=== PATIENT | female | born 1955 | race Caucasian/White ===

== ENCOUNTER → 2019-09-10 14:12 | Outpatient (CLI) | payer MEDICARE, SELFPAY ==
--- NOTE | ~2019-09-10 | XR_ITS ---
EXAMINATION: XR knee RT min 4V DATE: 09/10/2019 14:28 INDICATION: Right knee pain TECHNIQUE: Four views of the right knee were obtained. COMPARISON: 02/14/2019 FINDINGS: Alignment is normal. No fracture or osteochondral lesion. There is mild tricompartmental os teoarthritis characterized by tiny marginal osteophytes. No joint effusion/synovitis. Soft tissues a re unremarkable. IMPRESSION: 1. No acute osseous abnormality. Reviewed, dictated and finalized at location A.
== END ==
PROVIDERS: PCP Family Medicine; Visit Provider Physician Assistant
DX: M25.569 Pain in unspecified knee (principal)
CPT/HCPCS: 73564

== ENCOUNTER → 2020-05-27 12:08 | Outpatient (CLI) | payer MEDICARE, SELFPAY ==
--- NOTE | ~2020-05-27 | XR_ITS ---
EXAMINATION: XR shoulder RT min 2V DATE: 05/27/2020 12:45 INDICATION: Right shoulder pain. TECHNIQUE: 4 views of right shoulder were obtained. COMPARISON: None. FINDINGS: Bone alignment is normal. No fracture. There is mild osteoarthritis of glenohumeral joint a nd acromioclavicular joint. IMPRESSION: 1. Mild polyarticular osteoarthritis. Reviewed, dictated and finalized at location A. URCE DIRECTOR
== END ==
PROVIDERS: PCP Family Medicine; Visit Provider Physician Assistant
DX: M19.011 Primary osteoarthritis, right shoulder (principal)
CPT/HCPCS: 73030

== ENCOUNTER → 2020-06-26 10:58 | Outpatient (CLI) | payer MEDICARE, SELFPAY ==
--- NOTE | ~2020-06-26 | XR_ITS ---
EXAMINATION: XR foot LT min 3V DATE: 06/26/2020 11:16 INDICATION: Left foot pain, initial encounter TECHNIQUE: Dorsoplantar, lateral, and 2 oblique views of the left foot were obtained. COMPARISON: None. FINDINGS: An oblique lucency is present in the medial aspect of the medial cuneiform. No additional a cute osseous abnormality is identified. There is mild polyarticular osteoarthritis of the interphalan geal joints and moderate osteoarthritis at the tarsometatarsal joints. An Achilles enthesophyte is no belkys at the calcaneus. IMPRESSION: 1. Findings consistent with nondisplaced fracture of the medial cuneiform. Reviewed, dictated and finalized at location A. [employer]
== END ==
PROVIDERS: PCP Family Medicine; Visit Provider Family Medicine
DX: M79.672 Pain in left foot (principal)
CPT/HCPCS: 73630

== ENCOUNTER → 2020-07-02 15:20 | Outpatient (CLI) | payer MEDICARE, SELFPAY ==
--- NOTE | ~2020-07-02 | CT_ITS ---
EXAMINATION: CT foot LT wo con DATE: 07/02/2020 15:45 INDICATION: Left medial cuneiform fracture. TECHNIQUE: Computed tomography (CT) of the left foot was performed without intravenous contrast. Auto mated exposure control and iterative reconstruction technique were employed. The dose-length product was 188.26 mGy-cm. COMPARISON: Left foot radiographs 06/26/2020 FINDINGS: Bone alignment is normal. No fracture. There is mild osteoarthritis of first and fifth meta tarsophalangeal joints and some of the midfoot joints and interphalangeal joints. There is severe ost eoarthritis of first-third tarsometatarsal joints. There are enthesophytes at the posterior and plant ar aspects of calcaneal tuberosity. There is mild Achilles tendinopathy. IMPRESSION: 1. No fracture. 2. Polyarticular osteoarthritis. Reviewed, dictated and finalized at location A. DECORATOR
== END ==
PROVIDERS: Visit Provider Podiatrist Foot & Ankle Surgery
DX: S92.245A Nondisplaced fracture of medial cuneiform of left foot, initial encounter for closed fracture (principal); X58.XXXA Exposure to other specified factors, initial encounter; M19.072 Primary osteoarthritis, left ankle and foot
CPT/HCPCS: 73700

== ENCOUNTER → 2020-11-06 08:17 | Outpatient (CLI) | payer MEDICARE, SELFPAY ==
--- NOTE | ~2020-11-06 | CT_ITS ---
EXAMINATION: CT abdomen pelvis w con DATE: 11/06/2020 09:04 INDICATION: Left abdominal pain, left lower quadrant abdominal pain, abnormal bowel movements, excess alexys bowel gas. TECHNIQUE: Computed tomography (CT) of the abdomen and pelvis was performed with 100 cc Omnipaque 350 intravenous contrast. Automated exposure control and iterative reconstruction technique were employe d. Exam dose: 819.15 mGy-cm total exam DLP. COMPARISON: 06/01/2016 abdominal ultrasound examination, reported normal FINDINGS: Middle lobe calcified pulmonary granuloma. Mild discoid atelectasis or scarring in the ling [place] and left lower lobe. No pulmonary consolidation. Normal heart size. No pericardial or pleural effusion. No hepatic, splenic, pancreatic or adrenal space-occupying mass lesion is evident. 8 mm upper pole left renal cyst. Probable smaller mid left renal cysts. No other renal space occupyin g mass lesion is evident. Approximately 2.5 mm nonobstructing right renal calculus. No other urinary tract calculus or hydroure teronephrosis. The urinary bladder is unremarkable. Status post hysterectomy. Normal caliber of the abdominal aorta. No intraperitoneal or retroperitoneal or pelvic mass lesion or adenopathy or ascites. Normal appendix. There is a prominent amount of fecal material throughout the rectum and colon but no bowel obstruction, bowel wall thickening, pneumatosis or intraperitoneal free air is evident. Small fat-containing umbilical hernia. Included skeletal structures are unremarkable; no suspicious osteolytic or osteoblastic lesions. IMPRESSION: Left renal cyst 2.5 mm nonobstructing right renal calculus Reviewed, dictated and finalized at Location A. Reviewed, dictated and finalized at location A.
[2020-11-06 08:50] LABS: Estimated Glomerular Filt Rate > 60
== END ==
DX: R10.84 Generalized abdominal pain (principal); N20.0 Calculus of kidney; N28.1 Cyst of kidney, acquired
CPT/HCPCS: 74177; Q9967

== ENCOUNTER → 2021-01-22 15:00 | Outpatient (CLI) | payer MEDICARE, SELFPAY ==
--- NOTE | ~2021-01-22 | MM_ITS ---
EXAMINATION: MM screening rj BI w pepper HISTORY: Screening mammogram TECHNIQUE: Craniocaudal and mediolateral oblique 3-D tomosynthesis images were obtained and synthetic 2-D images were generated. CAD analysis was submitted and interpreted. COMPARISON: No prior mammogram is available for comparison at this institution. BREAST PARENCHYMAL COMPOSITION: There are scattered areas of fibroglandular density. FINDINGS: There is no evidence of suspicious mass, calcification, or architectural distortion to sugg est malignancy in either breast. There has been no suspicious interval change. IMPRESSION: 1. No mammographic evidence of malignancy. 2. Recommend routine screening mammography in one year. BI-RADS Category 1: Negative Reviewed, dictated and finalized at location A.
== END ==
PROVIDERS: PCP Family Medicine; Visit Provider Physician Assistant
DX: Z12.31 Encounter for screening mammogram for malignant neoplasm of breast (principal)
CPT/HCPCS: 77063; 77067

== ENCOUNTER 2021-02-20 13:02 | Outpatient (CLI) | payer MEDICARE, SELFPAY ==
--- NOTE | ~2021-02-20 | CT_ITS ---
EXAMINATION: CT brain wo con DATE: 02/20/2021 14:07 INDICATION: Headache. TECHNIQUE: Computed tomography (CT) of the head was performed without intravenous contrast. The mA wa s adjusted according to patient size. Iterative reconstruction technique was employed. The dose-lengt h product was 605.33 mGy-cm. COMPARISON: None FINDINGS: There are scattered areas of low attenuation in the cerebral white matter and bilateral bas al ganglia. There is no intracranial hemorrhage, acute infarction, or abnormal intracranial mass lesi on. The ventricles are normal in size. There is mucosal thickening in the paranasal sinuses. There ar e likely changes of ocular lens replacement surgeries. The mastoid air cells are normal. IMPRESSION: 1. Extensive nonspecific cerebral white matter disease and disease of the bilateral basal ganglia, wh ich likely represents chronic small vessel ischemic disease. Reviewed, dictated and finalized at location A. IMPRESSION: 1. Extensive nonspecific cerebral white matter disease and disease of the bilat eral basal ganglia, which likely represents chronic small vessel ischemic disea se.
== END 2021-02-20 13:03 | disposition home or self-care (01) ==
PROVIDERS: PCP Family Medicine; Visit Provider Physician Assistant
DX: R51.9 Headache, unspecified (principal); R93.0 Abnormal findings on diagnostic imaging of skull and head, not elsewhere classified
CPT/HCPCS: 70450

== ENCOUNTER → 2021-07-08 11:06 | Outpatient (CLI) | payer MEDICARE, SELFPAY ==
--- NOTE | ~2021-07-08 | XR_ITS ---
EXAMINATION: XR chest 2V EXAM DATE: 07/08/2021 11:19 INDICATION: R07.81 - Pleurodynia . TECHNIQUE: Frontal and lateral projections of the chest obtained and reviewed. Comparison is made to prior examination from 06/06/2015. FINDINGS: The lungs are hyperinflated which can be seen with chronic obstructive pulmonary disease ( a clinical diagnosis of functional impairment), but is not diagnostic of it. The lungs are clear. Th ere are no pleural effusions. The cardiomediastinal silhouette is within normal limits. There is no pneumothorax suspected. The bones and soft tissues are unremarkable. IMPRESSION: No acute cardiopulmonary findings. Reviewed, dictated and finalized at location A. TELEMETRY
== END ==
PROVIDERS: PCP Family Medicine; Visit Provider Physician Assistant
DX: R07.81 Pleurodynia (principal)
CPT/HCPCS: 71046

== ENCOUNTER 2021-09-13 15:18 | Emergency (ER) | payer MEDICARE, SELFPAY ==
--- NOTE | ~2021-09-13 | CT_ITS ---
EXAMINATION: CT brain wo con DATE: 09/13/2021 16:37 INDICATION: Increasing frequency of migraine headaches. Hypertension. TECHNIQUE: Computed tomography (CT) of the head was performed without intravenous contrast. The mA wa s adjusted according to patient size. Iterative reconstruction technique was employed. Exam dose: 68 1.00 mGy-cm total exam DLP. COMPARISON: 02/20/2021 CT brain FINDINGS: Again noted is prominent nonspecific patchy decreased attenuation of the cerebral white mat ter and basal ganglia, as on 02/20/2021. This likely. No intracranial mass lesion or hemorrhage or recent cerebrovascular accident is detected. Normal vent ricular size. There is no midline shift or mass effect. No subdural or epidural hematoma. There is moderate cerebral and cerebellar volume loss. No fracture or bone destruction of the cranial vault. The mastoid air cells and included paranasal sinuses are normally developed and aerated. IMPRESSION: Prominent chronic nonspecific patchy diminished attenuation of the cerebral white matter and basal ganglia: No acute intracranial abnormality or significant change since 02/20/2021 Reviewed, dictated and finalized at Location A. Reviewed, dictated and finalized at location A.
[2021-09-13 15:24] VITALS: BP 160/128; PULSE 98; RESP 18; TEMP 36.4; O2SAT 100
[2021-09-13 16:15] VITALS: BP 169/104; PULSE 83; RESP 18; O2SAT 98
--- NOTE | 2021-09-13 16:26 | ED.HA ---
HPI - Headache General Chief Complaint: Headache Stated Complaint: hypertension Time Seen by Provider: 09/13/21 15:58 Source: patient and family Mode of arrival: ambulatory Limitations: no limitations History of Present Illness HPI Narrative: Patient is 66 years old white female came to the emergency room because of increase in frequency of her regular migraine headache. Over the last 2 weeks. Patient usually gets better after vomiting but lately vomiting does not improve the headache. Patient denies focal deficit, headache is dull aching, similar to the previous migraine but all over the head. Patient is concerned about the possibility of brain tumor. Patient denies any fever, chills, chest pain, shortness of breath, neck pain, back pain. History of fibromyalgia, hypertension, hyperlipidemia, COPD, IBS, depression and migraine headache. Patient does not smoke or drink, uses marijuana occasionally for migraine headache Related Data Home Medications Medication Instructions Recorded Confirmed ibuprofen 800 mg tablet 800 mg PO TID 12/26/20 07/08/21 Allergies Allergy/AdvReac Type Severity Reaction Status Date / Time Penicillins Allergy Severe Anaphylaxis Verified 07/08/21 10:36 Sulfa (Sulfonamide Allergy Unknown Unknown Verified 07/08/21 10:36 Antibiotics) Review of Systems Review of Systems: CONSTITUTIONAL: Denies fever, chills, or sweats. EYES: Denies visual changes, redness, or discharge. ENT: Denies rhinorrhea, congestion, sore throat, or otalgia. CARDIOVASCULAR: Denies chest pain, palpitations, or edema. RESPIRATORY: Denies cough or dyspnea. GASTROINTESTINAL: Denies abdominal pain, nausea, vomiting, or diarrhea. GENITOURINARY: Denies dysuria or hematuria. SKIN: Denies rash or itching. MUSCULOSKELETAL: Denies back pain, joint pain, or myalgia. NEUROLOGIC: Denies headache, numbness, or weakness. PSYCHIATRIC: Denies anxiety or depression. [facility] Past Medical History Medical History Anxiety Essential hypertension Fibromyalgia Gastric ulcer, unspecified as acute or chronic, without hemorrhage or perforation H/O Helicobacter infection Migraine, unspecified, not intractable, without status migrainosus Mild intermittent asthma without complication Mixed hyperlipidemia Normal colonoscopy (~2019) Vitamin B12 deficiency Vitamin D deficiency Family History Family History Other Diabetes mellitus Family history of coronary artery disease Social History Social History Second hand tobacco smoke exposure: No Alcohol intake: never Substance use: never Substance use type: does not use Gender identity (if verbalized by the patient): Female Exam Narrative: General appearance: Well-developed, well-nourished Skin: Normal color Head: Normocephalic, nontraumatic Eyes: Clear conjunctiva ENT: Oropharynx normal, ears normal, nose normal Neck: Supple, nontender Chest and respiratory: Airway patent, no respiratory distress, no accessory muscle use Heart: Regular rate/rhythm Abdomen: Soft, nontender, no organomegaly, quiet bowel sounds Vascular: Normal peripheral pulses, normal capillary refill. Musculoskeletal: Normal range of motion, nontender back Neurologic: Alert and oriented ?3, PERMACULTURE DESIGNER is normal as tested, no gross motor deficit Course Course Emergency Course: Stable Vital Signs Vital signs: Vital Signs Temperature 36.4 C L 09/13/21 15:24 Pulse Rate 98 09/13/21 15:24 Respiratory Rate 18 09/13/21 15:24 Blood Pressure 160/128 H 09/13/21 15:24 Pulse Oximetry 100
[2021-09-13] MEDS: SODIUM CHLORIDE 0.9% IV 1,000 ML 999 ML IV CONT (16:49)
[2021-09-13] MEDS: KETOROLAC 30 MG/ML VIAL (*BKC) IV PUSH (16:52)
[2021-09-13] MEDS: LORazepam INJ (*CRX) 2 MG/ML VIAL 1 MG IV PUSH (16:52)
[2021-09-13] MEDS: METOCLOPRAMIDE HCL INJ 10 MG/2 ML VIAL IV PUSH (16:54)
[2021-09-13] MEDS: diphenhydrAMINE HCl INJ 50 MG/ML VIAL 25 MG IV PUSH (16:55)
[2021-09-13 17:05] LABS: Basophils Percent Auto 0.3 % (0.2-1.2); Eosinophils Percent Auto 0.2 % (0-4.4); Hematocrit 44.3 % (37.0-47.0); Hemoglobin 14.5 g/dL (12.0-15.0); Immature Granulocyte Absolute 0.01 K/mm3 (0.00-0.031); Immature Granulocyte Percent A 0.2 % (0-0.5); Lymphocytes Absolute Auto 1.66 K/mm3 (0.9-3.2); Lymphocytes Percent Auto 25.5 % (18.3-44.2); Mean Corpuscular HGB Conc 32.7 g/dl (32-36); Mean Corpuscular Hemoglobin 30.1 pg (26-34); Mean Corpuscular Volume 91.9 fl (80-100); Mean Platelet Volume 9.3 fl (7.4-10.4); Monocytes Absolute Auto 0.4 K/mm3 (0.1-0.6); Monocytes Percent Auto 6.7 % (2.6-8.5); Neutrophils Absolute Auto 4.4 K/mm3 (1.3-6.7); Neutrophils Percent Auto 67.1 % (45.5-73.1); Platelet Count Result 284 k/mm3 (150-375); Red Blood Count 4.82 M/mm3 (4.2-5.4); Red Cell Distribution Width 13.4 % (11.5-14.5); White Blood Count 6.5 K/mm3 (4.5-10.0)
[2021-09-13 17:15] VITALS: BP 167/94; PULSE 77; RESP 16; O2SAT 99
[2021-09-13 17:18] LABS: Alanine Aminotransferase 33 U/L (4-35); Albumin Level 4.8 g/dL (3.5-5.1); Alkaline Phosphatase 112 U/L (38-126); Anion Gap 7 mmol/L (8-16); Aspartate Amino Transferase 32 U/L (14-36); Bilirubin,Total 0.4 mg/dL (0.2-1.3); Blood Urea Nitrogen 18 mg/dL (7-17); Calcium 9.3 mg/dL (8.4-10.2); Carbon Dioxide 31 mmol/L (22-30); Chloride 100 mmol/L (98-107); Estimated CRCL calculation 85 ml/min; Estimated Glomerular Filt Rate > 60; Glucose 139 mg/dL (65-110); Potassium 3.6 mmol/L (3.4-5.0); Sodium 138 mmol/L (137-145)
[2021-09-13 17:46] LABS: Erythrocyte Sedimentation Rate 7 mm/hr (0-20)
[2021-09-13 18:07] VITALS: BP 158/91; PULSE 71; RESP 16; O2SAT 99
== END 2021-09-13 18:10 | disposition home or self-care (01) ==
PROVIDERS: Emergency Provider Emergency Medicine; PCP Family Medicine
DX: G43.909 Migraine, unspecified, not intractable, without status migrainosus (principal); F32.A Depression, unspecified; I10 Essential (primary) hypertension; J44.9 Chronic obstructive pulmonary disease, unspecified; E78.2 Mixed hyperlipidemia; K58.9 Irritable bowel syndrome, unspecified; M79.7 Fibromyalgia; F41.9 Anxiety disorder, unspecified; E53.8 Deficiency of other specified B group vitamins; E55.9 Vitamin D deficiency, unspecified
CPT/HCPCS: 36415; 70450; 80053; 85025; 85652; 96361; 96374; 96375; 99284; J1200; J1885; J2060; J2765; J7030

== ENCOUNTER → 2022-06-07 13:07 | Outpatient (CLI) | payer MEDICARE, SELFPAY ==
--- NOTE | ~2022-06-07 | MMUS_ITS ---
EXAMINATION: MM diagnostic rj BI w pepper, US breast LT complete HISTORY: Left breast pain TECHNIQUE: Additional 3-D tomosynthesis images of the breasts were performed and synthetic 2-D images were generated. CAD analysis was submitted and interpreted. High resolution complete left breast ult rasound was performed. COMPARISON: 01/22/2021 BREAST PARENCHYMAL COMPOSITION: Breast composed of scattered areas of fibroglandular density FINDINGS: MAMMOGRAPHIC FINDINGS: The breasts are stable. No new masses, calcifications or architectural distortion are identified in e ither breast to suggest malignancy. ULTRASOUND: Complete bilateral US of all 4 quadrants of the the left and retroareolar region was reviewed. At 5:0 0, 6 cm from the nipple there is an oval circumscribed hypoechoic mass with internal echogenic striat ions and no internal vascularity. There is posterior acoustic enhancement. This mass measures 1.5 x 0 .9 x 0.8 cm. No other masses or cysts are identified. IMPRESSION: 1. Solid left breast mass at 5:00, 6 cm from the nipple measuring 1.5 cm. 2. Ultrasound-guided left breast biopsy recommended. BI-RADS category 4, suspicious findings. Reviewed, dictated and finalized at location B. SPLANT NURSE IMPRESSION: 1. Solid left breast mass at 5:00, 6 cm from the nipple measuring 1.5 cm. 2. Ultrasound-guided left breast biopsy recommended. BI-RADS category 4, suspicious findings.
== END ==
PROVIDERS: PCP Family Medicine
DX: N64.4 Mastodynia (principal); R92.8 Other abnormal and inconclusive findings on diagnostic imaging of breast
CPT/HCPCS: 76641; 77062; 77066; G0279

== ENCOUNTER 2022-12-21 21:44 | Observation (INO) | payer MEDICARE, SELFPAY ==
--- NOTE | ~2022-12-21 | XR_ITS ---
EXAMINATION: XR chest 2V Exam Date/Time: 12/21/2022 22:25 CDT HISTORY: cp Comparison: 07/08/2021. RESULT: Lines, tubes, and devices: None. Lungs and pleura: Clear. Streaky bibasilar scar/atelectasis. 6 mm left lower lobe pulmonary nodule. Cardiomediastinal silhouette: Stable. Other: No acute osseous or upper abdominal finding. IMPRESSION: No acute cardiopulmonary process. 6 mm left lower lobe pulmonary nodule, recommend nonemergent outpat ient low-dose noncontrast CT of the chest for further characterization. Reviewed, dictated and finalized at location K. IMPRESSION: No acute cardiopulmonary process. 6 mm left lower lobe pulmonary nodule, recomm end nonemergent outpatient low-dose noncontrast CT of the chest for further mp racterization.
--- NOTE | ~2022-12-21 | NM_ITS ---
EXAMINATION: NM trell stress w perfusion DATE: 12/22/2022 14:24 INDICATION: Chest pain TECHNIQUE: Rest images were obtained following intravenous administration of 8 mCi Tc99m tetrofosmin (Myoview). The patient was infused intravenously with Lexiscan (Regadenoson). Then, 24 mCi Tc99m tetr ofosmin (Myoview) was administered intravenously, and stress images were obtained. Data was reconstru cted into short axis and horizontal and vertical long axis SPECT images. Gated SPECT images were also obtained. COMPARISON: None. FINDINGS: There is no definite reversible or fixed perfusion abnormality to suggest ischemia or infar ction. There is normal left ventricular chamber size, wall motion and ejection fraction. Left ventr icular ejection fraction measures >70%. IMPRESSION: 1. Normal myocardial perfusion at rest and during stress. 2. Left ventricular ejection fraction measuring >70%. Reviewed, dictated and finalized at location A.
--- NOTE | ~2022-12-21 | CT_ITS ---
CT head without contrast Indication: Headache COMPARISON: 09/13/2021 Technique: Serial scans were obtained through the brain without the administration of contrast. Dose reduction technique was used on this scan by utilizing automated exposure control and iterative recon struction technique. The dose-length product (DLP) was 681.00 mGy-cm. Findings: There is no evidence of intracranial hemorrhage, mass lesion, or acute infarct. The ventri cles and subarachnoid spaces are unremarkable. Low attenuation regions are seen within the periventr icular white matter bilaterally, likely representing changes from chronic microvascular ischemic dise ase. There is no evidence of edema, mass effect or midline shift. The visualized paranasal sinuses and mastoid air cells are clear. Impression: No intracranial hemorrhage, mass, or acute infarct. Mild chronic white matter changes, as above. Reviewed, dictated and finalized at location . Impression: No intracranial hemorrhage, mass, or acute infarct. Mild chronic white matter changes, as above.
--- NOTE | 2022-12-21 21:46 | ECG_ITS ---
Measurements Intervals [place] Rate: 76 P: 45 [place]: 166 QRS: 7 QRSD: 104 T: 30 QT: 396 QTc: 446 Interpretive Statements SINUS RHYTHM POSSIBLE LEFT ATRIAL ENLARGEMENT [-0.1mV P WAVE IN V1/V2] POSSIBLE TYPE 3 BRUGADA PATTERN (NON-DIAGNOSTIC) [COVED/SADDLEBACK ST ELEVATION > 0.1mV IN 2 OF V1-3] ABNORMAL ECG NO PREVIOUS ECG AVAILABLE FOR COMPARISON Electronically Signed On 12-22-2022 11:55:47 CDT by Eleuterio Smyth M.D.
[2022-12-21 21:47] VITALS: BP 182/100; PULSE 82; RESP 15; TEMP 36.4; O2SAT 97
[2022-12-21 22:00] LABS: Basophils Percent Auto 0.5 % (0.2-1.2); Eosinophils Percent Auto 0.3 % (0-4.4); Hematocrit 37.6 % (37.0-47.0); Hemoglobin 12.5 g/dL (12.0-15.0); Immature Granulocyte Absolute 0.01 K/mm3 (0.00-0.031); Immature Granulocyte Percent A 0.2 % (0-0.5); Lymphocytes Absolute Auto 1.97 K/mm3 (0.9-3.2); Lymphocytes Percent Auto 31.1 % (18.3-44.2); Mean Corpuscular HGB Conc 33.2 g/dl (32-36); Mean Corpuscular Volume 90.2 fl (80-100); Mean Platelet Volume 9.3 fl (7.4-10.4); Monocytes Absolute Auto 0.4 K/mm3 (0.1-0.6); Monocytes Percent Auto 6.3 % (2.6-8.5); Neutrophils Absolute Auto 3.9 K/mm3 (1.3-6.7); Neutrophils Percent Auto 61.6 % (45.5-73.1); Platelet Count Result 259 k/mm3 (150-375); Red Blood Count 4.17 M/mm3 (4.2-5.4); Red Cell Distribution Width 13.5 % (11.5-14.5); White Blood Count 6.3 K/mm3 (4.5-10.0)
[2022-12-21 22:09] LABS: Prothrombin Time 13.3 Seconds (11.1-14.7)
[2022-12-21 22:10] LABS: Partial Thromboplastin Time 30.1 SECONDS (22.3-36.8)
[2022-12-21 22:11] LABS: Alanine Aminotransferase 25 U/L (6-35); Albumin Level 4.4 g/dL (3.5-5.1); Alkaline Phosphatase 95 U/L (38-126); Anion Gap 3 mmol/L (8-16); Aspartate Amino Transferase 32 U/L (14-36); Bilirubin,Total 0.3 mg/dL (0.2-1.3); Blood Urea Nitrogen 16 mg/dL (7-17); Calcium 9.3 mg/dL (8.4-10.2); Carbon Dioxide 35 mmol/L (22-30); Chloride 100 mmol/L (98-107); Estimated CRCL calculation 52 ml/min; Estimated Glomerular Filt Rate 55; Glucose 145 mg/dL (65-110); Lipase 82 U/L (23-300); Sodium 138 mmol/L (137-145)
[2022-12-21 22:22] LABS: Troponin I < 0.012 ng/mL (0.000-0.034)
[2022-12-22] VITALS (32 sets, daily range): BP systolic 102–173; BP diastolic 73–91; PULSE 59–84; RESP 12–20; TEMP 36–36.8; O2SAT 95–100; BMI 25.9
--- NOTE | 2022-12-22 01:13 | ED.CHESTPAIN ---
HPI - Chest Pain General Chief Complaint: Chest Pain <Zahraa Jefferson PA-C - Last Filed: 12/22/22 04:35> Stated Complaint: cp <Zahraa Jefferson PA-C - Last Filed: 12/22/22 04:35> Time Seen by Provider: 12/22/22 00:41 <Zahraa Jefferson PA-C - Last Filed: 12/22/22 04:35> History of Present Illness HPI narrative: 67-year-old female with history of fibromyalgia, hypertension, hyperlipidemia reports for evaluation of acute onset left-sided neck pain that radiated up into her head and behind her eye, left scapular pain, left-sided chest pain and upper abdominal pain that started suddenly while she was doing the dishes approximately 7 PM. She reports associated nausea and dizziness as well as paresthesias throughout her entire body from head to toe . She denies difficulty walking or talking, difficulty swallowing, focal weakness or numbness. She does report history of migraines and states she had a similar headache on Tuesday, however did not involve chest pain, abdominal pain or back pain. She reports taking ibuprofen and a muscle relaxer without improvement. She states since she has been to the ED she has had improvement in all of her pain, however it is still present and a dull ache. When asked if she is feeling short of breath that she states a little. She is unable to elaborate if the chest pain has aggravating or alleviating factors. She denies history of cardiac history. Her dad and brother both had multiple MIs prior to the age of 65. She is not a smoker. Denies cough, congestion, fever, urinary complaints. <Zahraa Jefferson PA-C - Last Filed: 12/22/22 04:35> Related Data Home Medications: Home Medications Medication Instructions Recorded Confirmed ibuprofen 800 mg tablet 800 mg PO TID 12/26/20 09/17/21 <BRITTANY Grijalva Last Filed: 12/22/22 04:35> Allergies/Adverse Reactions: Allergies Allergy/AdvReac Type Severity Reaction Status Date / Time Penicillins Allergy Severe Anaphylaxis Verified 12/21/22 21:50 Sulfa (Sulfonamide Allergy Unknown Unknown Verified 12/21/22 21:50 Antibiotics) <BRITTANY Grijalva Last Filed: 12/22/22 04:35> Review of Systems Review of Systems: CONSTITUTIONAL: Denies fever, chills EYES: Denies visual changes, redness, or discharge. ENT: Denies rhinorrhea, congestion, sore throat, or otalgia. CARDIOVASCULAR: See HPI RESPIRATORY: Denies cough or dyspnea. GASTROINTESTINAL: See HPI GENITOURINARY: Denies dysuria or hematuria. SKIN: Denies rash or itching. MUSCULOSKELETAL: See HPI NEUROLOGIC: See HPI PSYCHIATRIC: Denies anxiety or depression. <Zahraa Jefferson PA-C - Last Filed: 12/22/22 04:35> [facility] Past Medical History Medical History: Medical History (Updated 12/22/22 @ 05:40 by Kayli Wood MD) Anxiety Essential hypertension Fibromyalgia Gastric ulcer, unspecified as acute or chronic, without hemorrhage or perforation H/O Helicobacter infection Migraine, unspecified, not intractable, without status migrainosus Mild intermittent asthma without complication Mixed hyperlipidemia Normal colonoscopy (~2019) Vitamin B12 deficiency Vitamin D deficiency <Zahraa Jefferson PA-C - Last Filed: 12/22/22 04:35> Family History Family History: Family History Other Diabetes mellitus Family history of coronary artery disease <Zahraa Jefferson PA-C - Last Filed: 12/22/22 04:35> Social History Social History: Social History Second hand tobacco smoke exposure: No Alcohol intake: never Substance use: never Substance use type: does not use Gender identity (if verbalized by the patient): Female <Zahraa Jefferson PA-C - Last Filed: 12/22/22 04:35> Exam Narrative: GENERAL: Well-appearing, in no acute distress. Patient resting comfortably in exam bed. She is pleasant and
[2022-12-22 01:36] LABS: Troponin I < 0.012 ng/mL (0.000-0.034)
[2022-12-22 01:38] LABS: NT Pro B Type Natriuretic Pept 199 pg/mL (19.9-100)
[2022-12-22 01:43] LABS: Appearance Urine Cloudy (Clear); Bilirubin Urine Negative (Negative); Blood Urine Negative (Negative); Color Urine Yellow (Yellow); Glucose Urine UA Negative (Negative); Ketones Urine Negative (Negative); Leukocyte Esterase Ur 3+ LEU/UL (Negative); Nitrate Urine Negative (Negative); Non Pathogenic Casts 0-2; Protein Urine Negative (Negative); RBC Urine 0-2 /hpf (0-2); Specific Grav Ur 1.012 (1.001-1.035); Squamous Epithelial Cell Urine Occasional /hpf (Few); WBC Urine 51-100 /hpf; pH Urine 6.5 (5.0-9.0)
[2022-12-22 01:45] LABS: Bacteria Urine 2+ /hpf
[2022-12-22 01:46] LABS: Add Urine Microscopic? YES
[2022-12-22] MEDS: ACETAMINOPHEN 500 MG TABLET 1000 MG PO (03:00)
--- NOTE | 2022-12-22 03:31 | PC.NURSE ---
Ultrasound IV placed at this time by .
[2022-12-22] MEDS: PROCHLORPERAZINE EDISYLATE 10 MG/2 ML VIAL IV PUSH (03:33)
[2022-12-22] MEDS: diphenhydrAMINE HCl INJ 50 MG/ML VIAL 25 MG IV PUSH (03:33)
[2022-12-22] MEDS: SODIUM CHLORIDE 0.9% IV 1,000 ML 999 ML IV CONT (03:34)
[2022-12-22 03:47] LABS: Basophils Percent Auto 0.4 % (0.2-1.2); Eosinophils Absolute Auto 0.1 K/mm3 (0-0.3); Eosinophils Percent Auto 0.9 % (0-4.4); Hematocrit 40.6 % (37.0-47.0); Hemoglobin 13.4 g/dL (12.0-15.0); Immature Granulocyte Absolute 0.01 K/mm3 (0.00-0.031); Immature Granulocyte Percent A 0.1 % (0-0.5); Lymphocytes Absolute Auto 2.28 K/mm3 (0.9-3.2); Lymphocytes Percent Auto 34.1 % (18.3-44.2); Mean Corpuscular Hemoglobin 30.1 pg (26-34); Mean Corpuscular Volume 91.2 fl (80-100); Mean Platelet Volume 9.9 fl (7.4-10.4); Monocytes Absolute Auto 0.4 K/mm3 (0.1-0.6); Monocytes Percent Auto 6.3 % (2.6-8.5); Neutrophils Absolute Auto 3.9 K/mm3 (1.3-6.7); Neutrophils Percent Auto 58.2 % (45.5-73.1); Platelet Count Result 286 k/mm3 (150-375); Red Blood Count 4.45 M/mm3 (4.2-5.4); Red Cell Distribution Width 13.6 % (11.5-14.5); White Blood Count 6.7 K/mm3 (4.5-10.0)
[2022-12-22 03:57] LABS: INR 0.9; Prothrombin Time 12.8 Seconds (11.1-14.7)
[2022-12-22 03:58] LABS: Partial Thromboplastin Time 30.8 SECONDS (22.3-36.8)
[2022-12-22] MEDS: HEPARIN SOD/D5W 100 UNITS/ML 25,000 UNITS/250 ML BAG 10 UNITS IV CONT (04:52)
[2022-12-22] MEDS: POTASSIUM CHLORIDE 20 MEQ PACKET (FOR LIQUID) 40 MEQ PO (04:55)
--- NOTE | 2022-12-22 05:44 | ECG_ITS ---
Measurements Intervals [place] Rate: 59 P: 39 [place]: 183 QRS: 11 QRSD: 105 T: 30 QT: 461 QTc: 458 Interpretive Statements SINUS BRADYCARDIA RSR PRIME NONSPECIFIC ST ABNORMALITY ABNORMAL EKG COMPARED TO ECG 12/21/2022 21:53:56 SINUS BRADYCARDIA NOW PRESENT Electronically Signed On 12-22-2022 14:39:01 CDT by Eleuterio Smyth M.D.
--- NOTE | 2022-12-22 06:32 | ADMGEN ---
This patient, Katina Krause, was admitted to IMU Room 205-02 at 0625 on 12/22/2022. Patient/family oriented to hospital policies and general routines including ID bracelet, bed and alarms, visiting hours, pain management, procedures, bathroom and other care routines, personal items, smoking policy, room service/diet, and visiting hours. Information on how to activate the Rapid Response Team has been discussed. Patient/Family are encouraged to report perceived risks to care and to ask questions if they do not understand what they are told or what they should do.
--- NOTE | 2022-12-22 10:48 | P.PCNCVR_ITS ---
Cardioversion Cardioversion Date of procedure: 12/22/22 Procedure: 1. Elective Electricalcardioversion 2. Moderate sedation Pre-op diagnosis: atrial fibrillation Post-op diagnosis: Same Indications: atrial fibrillation Description of procedure: after discussing the risks, benefits and alternatives of the procedure patient agreeable via verbal and written informed consent. Risks discussed included skin irritation burn, shocking into more problematic heart rhythm, , stroke or adverse reaction to anesthesia. After establishing continuous telemetry monitoring, pulse oxygenation and serial blood pressure assessments, time-out was taken and procedure was started. Procedure start time 10:43 a.m. Procedure stop time 10:46 a.m. complications: None Blood loss: None Sedation: a total 2 mg of Versed and 50 mcg of fentanyl were given for moderate sedation Patient was monitored and medications were administered by Judy Cristobal RN Findings: 1. Successful uatsdin of sinus rhythm from atrial fibrillation using 150 joules of biphasic synchronized energy 2. Moderate sedation Conclusion: 1. Successful uatsdin of sinus rhythm using 150 joules of biphasic synchr onized energy 2. Moderate sedation
[2022-12-22 11:11] LABS: Partial Thromboplastin Time 61.8 SECONDS (22.3-36.8)
[2022-12-22 11:14] LABS: Troponin I < 0.012 ng/mL (0.000-0.034)
--- NOTE | 2022-12-22 11:20 | EST_ITS ---
Patient Info Name: Katina Krause Age: 67 years : 1955 Gender: Female Ht: 70 in Wt: 180 lbs BSA: 2.02 m2 HR: 71 bpm BP: 147 / 99 mmHg Heart Rhythm: Sinus Rhythm Exam Date: 12/22/2022 1:23 PM Exam Location: [facility] Stress Patient Status: Outpatient Admit Date: 12/22/2022 Staff Ordering Physician: Eleuterio Smyth MD Attending Provider: Sylvia Bautista DO Exercise Technologist: Rocio Amaro CT Exercise Physician: Eleuterio Smyth MD Exam Type: CA stress trell w NM Study Info Indications R07.89 - Other chest pain A regadenoson stress test was performed. Summary 1. No abnormal ST-T wave changes with lexiscan. 2. Please correlate with nuclear medicine images, reported separately. 3. Supervising physician: Dr. Smyth. Protocol: Lexiscan Stress ECG Details Stage: REST Duration (min): 2 min : 17 sec HR (bpm): 70 SBP (mmHg): 147 DBP (mmHg): 99 Stage: REST Duration (min): 3 min : 45 sec HR (bpm): 73 SBP (mmHg): 147 DBP (mmHg): 99 Stage: STAGE 1 Duration (min): 1 min : 0 sec HR (bpm): 102 SBP (mmHg): 151 DBP (mmHg): 90 Stage: RECOVERY Duration (min): 1 min : 0 sec HR (bpm): 101 SBP (mmHg): 151 DBP (mmHg): 90 Stage: RECOVERY Duration (min): 2 min : 0 sec HR (bpm): 96 SBP (mmHg): 151 DBP (mmHg): 90 Stage: RECOVERY Duration (min): 3 min : 0 sec HR (bpm): 96 SBP (mmHg): 183 DBP (mmHg): 92 Stage: RECOVERY Duration (min): 3 min : 3 sec HR (bpm): 94 SBP (mmHg): 183 DBP (mmHg): 92 Rest HR: 73 bpm Peak HR: 107 bpm Rest Sys BP: 147 mmHg Peak Sys BP: 183 mmHg Max Pred HR: 153 bpm % Max Pred HR: 70 % Target HR: 130 bpm Max RPP: 19,581 bpm*mmHg BP Response: Normal blood pressure response Termination Reason: Completed protocol Cardiac Symptoms: None Total Time: 1 min : 0 sec Rest Maldonado BP: 99 mmHg Peak Maldonado BP: 92 mmHg Total Dose: 0.4 mg Resting ECG Normal sinus rhythm. NST, IRBBB. Stress ECG Non-diagnostic ECG response due to resting abnormalities. Arrhythmias None. Report Signatures
--- NOTE | 2022-12-22 11:28 | PM.CNCAR ---
Assessment and Plan Assessment and plan (1) Chest pain: Code(s): R07.9 - Chest pain, unspecified Status: Acute Assessment and Plan: Chest pain is very atypical. Possibly related to hypertension versus anxiety but cannot completely exclude angina but to this point. She has ruled out for myocardial infarction. There is no acute ST or T-wave abnormalities. Will order Lexiscan myocardial perfusion study. If normal, she can be discharged for follow-up with Dr. Haas. (2) Mixed hyperlipidemia: Code(s): E78.2 - Mixed hyperlipidemia Status: Acute Assessment and Plan: Continue atorvastatin (3) Essential hypertension: Code(s): I10 - Essential (primary) hypertension Status: Acute Assessment and Plan: Continue losartan/hydrochlorothiazide at current dosage (4) Fibromyalgia: Code(s): M79.7 - Fibromyalgia Status: Acute History of Present Illness History of Present Illness Consult date/time: 12/22/22 11:28 Requesting physician: Kayli Wood MD Consult reason: chest pain Reason For Visit: Chest Pain Narrative: Reason for consultation: Chest pain Requesting provider: Dr. Wood Date of service 12/22/2022 History: Patient is a 67-year-old female who does not have known cardiac history. She does have fibromyalgia, hypertension, hyperlipidemia and a family history of CAD. She was cooking dinner last night and shortly after eating, felt some pain in her chest. It radiated up into her head and into her back. She checked her blood pressure blood pressure was elevated at 1 60/100. She took her blood pressure medications and went to lay down. Symptoms persisted and she came to the hospital for further workup evaluation. She stated that by the time they did she was seen in the ER, her symptoms were going away. Total time was about 1-2 hours of discomfort. She did describe some nausea at the time but no associated shortness of breath or diaphoresis. She has ruled out for myocardial infarction. She has no recent exertional chest pain, syncope, presyncope, paroxysmal nocturnal dyspnea, orthopnea, edema palpitations currently feels well and readily admits to being under some stress Review of Systems Review of Systems: All systems reviewed & are unremarkable except as noted in HPI and below Constitutional: Constitutional: Reports body ache(s) Eyes: Eyes: Denies blurry vision ENT: Reports Normal hearing present Cardiovascular: Cardiovascular: Reports chest pain Respiratory: Respiratory: Denies chest congestion and Denies cough Gastrointestinal: Gastrointestinal: Denies abdominal pain Genitourinary: Genitourinary: Denies hematuria Musculoskeletal: Musculoskeletal: Reports myalgias and Reports arthralgias Integumentary/Breasts: Skin/Breast: Denies pruritus Neurologic: Denies Abnormal speech present Psychiatric: Psychiatric: Reports anxiety and Denies behavioral changes Endocrine: Endocrine: Denies excessive sweating Hematologic/Lymphatic: Hematologic/Lymphatic: Denies easy bleeding Allergic/Immunologic: Allergic/Immunologic: Denies GI upset with certain foods PMFSH Past Medical History Medical History Anxiety Essential hypertension Fibromyalgia Gastric ulcer, unspecified as acute or chronic, without hemorrhage or perforation H/O Helicobacter infection Migraine, unspecified, not intractable, without status migrainosus Mild intermittent asthma without complication Mixed hyperlipidemia Normal colonoscopy (~2019) Vitamin B12 deficiency Vitamin D deficiency Family History Family History Father Diabetes mellitus Family history of coronary artery disease Heart attack Sibling Diabetes mellitus Cerebrovascular accident Social History Social History Smoking status: Never smoker
[2022-12-22 11:40] LABS: Anion Gap 1 mmol/L (8-16); Blood Urea Nitrogen 13 mg/dL (7-17); Calcium 9.1 mg/dL (8.4-10.2); Carbon Dioxide 33 mmol/L (22-30); Chloride 103 mmol/L (98-107); Estimated CRCL calculation 73 ml/min; Estimated Glomerular Filt Rate > 60; Glucose 118 mg/dL (65-110); Magnesium 1.7 mg/dL (1.6-2.3); Potassium 3.3 mmol/L (3.4-5.0); Sodium 137 mmol/L (137-145)
[2022-12-22] MEDS: ALPRAZolam (*CRX) 0.5 MG TABLET PO (12:42)
[2022-12-22] MEDS: FLUoxetine HCL 20 MG CAPSULE PO (12:57)
--- NOTE | 2022-12-22 13:57 | PC.NURSE ---
1200- to [place] for Lexiscan
--- NOTE | 2022-12-22 15:13 | PM.DS ---
DS: Summary Time Spent with Patient Time attestation: Total time spent providing and/or coordinating discharge services: DS: Data Data Completed and Pending Labs on day of discharge: Labs from last 24 hours 12/22/22 12/22/22 12/22/22 10:45 03:43 01:33 WBC 6.7 RBC 4.45 Hgb 13.4 Hct 40.6 MCV 91.2 MCH 30.1 MCHC 33.0 RDW 13.6 Plt Count 286 MPV 9.9 Immature Gran % (Auto) 0.1 Neut % (Auto) 58.2 Lymph % (Auto) 34.1 Webb % (Auto) 6.3 Eos % (Auto) 0.9 Baso % (Auto) 0.4 Lymph # (Auto) 2.28 Webb # (Auto) 0.4 Eos # (Auto) 0.1 Baso # (Auto) 0.0 Abs Immat Gran (auto) 0.01 Absolute Neuts (auto) 3.9 Absolute Nucleated RBC 0.0 Nucleated RBC % 0.0 PT 12.8 INR 0.9 APTT 61.8 H 30.8 Sodium 137 Potassium 3.3 L Chloride 103 Carbon Dioxide 33 H Anion Gap 1 L BUN 13 Creatinine 0.70 Estim Creat Clear Calc 73 Estimated GFR > 60 Glucose 118 H Calcium 9.1 Magnesium 1.7 Total Bilirubin AST ALT Alkaline Phosphatase Troponin I < 0.012 NT-Pro-B Natriuret Pep Total Protein Albumin Lipase Urine Color Yellow Urine Appearance Cloudy H Urine pH 6.5 Ur Specific Tavares 1.012 Urine Protein Negative Urine Glucose (UA) Negative Urine Ketones Negative Ur Blood (Man) Negative Urine Nitrate Negative Urine Bilirubin Negative Urine Urobilinogen 1.0 Leukocyte Esterase Rfl 3+ H Urine RBC 0-2 Urine WBC 51-100 H Ur Squamous Epith Cells Occasional Urine Bacteria 2+ Urine Casts 0-2 12/22/22 12/21/22 01:07 21:54 WBC 6.3 RBC 4.17 L Hgb 12.5 Hct 37.6 MCV 90.2 MCH 30.0 MCHC 33.2 RDW 13.5 Plt Count 259 MPV 9.3 Immature Gran % (Auto) 0.2 Neut % (Auto) 61.6 Lymph % (Auto) 31.1 Webb % (Auto) 6.3 Eos % (Auto) 0.3 Baso % (Auto) 0.5 Lymph # (Auto) 1.97 Webb # (Auto) 0.4 Eos # (Auto) 0.0 Baso # (Auto) 0.0 Abs Immat Gran (auto) 0.01 Absolute Neuts (auto) 3.9 Absolute Nucleated RBC 0.0 Nucleated RBC % 0.0 PT 13.3 INR 1.0 APTT 30.1 Sodium 138 Potassium 3.0 L Chloride 100 Carbon Dioxide 35 H Anion Gap 3 L BUN 16 Creatinine 1.00 Estim Creat Clear Calc 52 Estimated GFR 55 L Glucose 145 H Calcium 9.3 Magnesium Total Bilirubin 0.3 AST 32 ALT 25 Alkaline Phosphatase 95 Troponin I < 0.012 < 0.012 NT-Pro-B Natriuret Pep 199 H Total Protein 7.0 Albumin 4.4 Lipase 82 Urine Color Urine Appearance Urine pH Ur Specific Tavares Urine Protein Urine Glucose (UA) Urine Ketones Ur Blood (Man) Urine Nitrate Urine Bilirubin Urine Urobilinogen Leukocyte Esterase Rfl Urine RBC Urine WBC Ur Squamous Epith Cells Urine Bacteria Urine Casts Discharge Plan Discharge Attending physician on discharge: Milagros Douglas Consulting providers: Eleuterio Smyth Discharging Clinician: Milagros Douglas Patient Disposition: Home, Self-Care Activity: as tolerated Diet: heart healthy Discharge Instructions: Patient to follow with her primary care provider as soon as possible, patient is instructed if any symptoms redeveloped to go to nearest emergency department. Patient Instructions: Antibiotic Form Stand Alone Forms: General Discharge Information Follow-up/Referrals: Waldo,Helder López MD [Primary Care Provider] - Discharge Medications: Continued losartan 50 mg tablet 50 mg PO BID atorvastatin 10 mg tablet 10 mg PO HS pantoprazole 40 mg tablet,delayed release (DR/EC) 40 mg PO BID ergocalciferol (vitamin D2) 1,250 mcg (50,000 unit) capsule 1,250 mcg PO WEEKLY fluoxetine 20 mg capsule 20 mg PO DAILY desipramine 10 mg tablet See Rx Instructions PO DAILY PRN (Reason: Abdominal Distention) Rx Instructions: Take 2-3 tab PO daily; hydrochloro
--- NOTE | 2022-12-22 15:30 | PC.NURSE ---
1430- returned to room- post procedure- okay from cardiology to discharge home
--- NOTE | 2022-12-29 18:32 | PM.SD2 ---
Same Day Admit/Disch: HPI History of Present Illness Chief complaint: Chest Pain Narrative: Katina Krause is a 67 year old female ED-HPI narrative: ? ? ? 67-year-old female with history of fibromyalgia, hypertension, hyperlipidemia reports for evaluation of acute onset left-sided neck pain that radiated up into her head and behind her eye, left scapular pain, left-sided chest pain and upper abdominal pain that started suddenly while she was doing the dishes approximately 7 PM.? She reports associated nausea and dizziness as well as paresthesias throughout her entire body from head to toe .? She denies difficulty walking or talking, difficulty swallowing, focal weakness or numbness.? She does report history of migraines and states she had a similar headache on Tuesday, however did not involve chest pain, abdominal pain or back pain.? She reports taking ibuprofen and a muscle relaxer without improvement.? She states since she has been to the ED she has had improvement in all of her pain, however it is still present and a dull ache.? When asked if she is feeling short of breath that she states a little. She is unable to elaborate if the chest pain has aggravating or alleviating factors.? She denies history of cardiac history.? Her dad and brother both had multiple MIs prior to the age of 65.? She is not a smoker.? Denies cough, congestion, fever, urinary complaints PMFSH Past Medical History Medical History Anxiety Essential hypertension Fibromyalgia Gastric ulcer, unspecified as acute or chronic, without hemorrhage or perforation H/O Helicobacter infection Migraine, unspecified, not intractable, without status migrainosus Mild intermittent asthma without complication Mixed hyperlipidemia Normal colonoscopy (~2019) Vitamin B12 deficiency Vitamin D deficiency Family History Family History Father Diabetes mellitus Family history of coronary artery disease Heart attack Sibling Diabetes mellitus Cerebrovascular accident Social History Social History Smoking status: Never smoker Second hand tobacco smoke exposure: No Alcohol intake: never Substance use: never Substance use type: does not use Lack of Transportation: No Lack of Food: Never True Current Housing: I Have Housing Concerned About Future Housing: No Difficulty Paying Gas/Electric Bills: No Difficulty Paying for Meds: No Currently Unemployed: No Education: High School Diploma/GED Difficulty w/ Childcare or Family Care: No Gender identity (if verbalized by the patient): Female Spiritual care concerns: No Same Day Admit/Disch: Med Pre-admit Medications Home Medications Medication Instructions Recorded Confirmed Type alprazolam 0.5 mg tablet 0.5 mg PO BID PRN anxiety #60 tabs 09/14/21 12/22/22 Rx tramadol 50 mg tablet 50 mg PO Q6H PRN pain #60 tabs 10/07/21 12/22/22 Rx atorvastatin 10 mg tablet 10 mg PO HS 12/22/22 12/22/22 History desipramine 10 mg tablet See Rx Instructions PO DAILY PRN 12/22/22 12/22/22 History Abdominal Distention ergocalciferol (vitamin D2) 1,250 1,250 mcg PO WEEKLY 12/22/22 12/22/22 History mcg (50,000 unit) capsule fluoxetine 20 mg capsule 20 mg PO DAILY 12/22/22 12/22/22 History hydrochlorothiazide 12.5 mg tablet 12.5 mg PO HS 12/22/22 12/22/22 History losartan 50 mg tablet 50 mg PO BID 12/22/22 12/22/22 History pantoprazole 40 mg tablet,delayed 40 mg PO BID 12/22/22 12/22/22 History release Exam Narrative: Patient is comfortable, NAD HEENT: eyes are clear and none icteric LUNGS: Normal respiratory effort ABD: BS+, Soft and nontender Lower extremities: no edema SKIN: nonjaundiced Neuro: grossly intact. DS: Summary Hospital Course Reason for hospitalization: ED-HPI narrative: ? ? ? 67-year-old female with histor
== END 2022-12-22 15:55 | disposition home or self-care (01) ==
LOC: ANHED 12-22 05:40 → ANHIMU 12-22 11:42
PROVIDERS: Emergency Medicine; Admitting Provider Internal Medicine; Emergency Provider Physician Assistant; PCP Family Medicine; Visit Provider Family Medicine
DX: R07.9 Chest pain, unspecified (principal); E78.2 Mixed hyperlipidemia; I10 Essential (primary) hypertension; M79.7 Fibromyalgia; M54.2 Cervicalgia; R42 Dizziness and giddiness; R20.2 Paresthesia of skin; G43.909 Migraine, unspecified, not intractable, without status migrainosus; J45.909 Unspecified asthma, uncomplicated; R94.31 Abnormal electrocardiogram [ECG] [EKG]; M25.512 Pain in left shoulder; E53.8 Deficiency of other specified B group vitamins; E55.9 Vitamin D deficiency, unspecified; R91.8 Other nonspecific abnormal finding of lung field; F41.9 Anxiety disorder, unspecified; Z79.01 Long term (current) use of anticoagulants; Z79.891 Long term (current) use of opiate analgesic; Z79.899 Other long term (current) drug therapy; Z82.49 Family history of ischemic heart disease and other diseases of the circulatory system
CPT/HCPCS: 36415; 70450; 71046; 78452; 80048; 80053; 81001; 83690; 83735; 83880; 84484; 85025; 85610; 85730; 87086; 93005; 93017; 96361; 96374; 96375; 99285; A9270; A9502; G0378; J0780; J1200; J1644; J2785; J7030

== ENCOUNTER 2024-05-01 14:20 | Outpatient (CLI) | payer MEDICARE, SELFPAY ==
--- NOTE | ~2024-05-01 | CT_ITS ---
CT brain wo con Ordering provider: Helder Haas, History: 69 years Female with . Unspecified injury of head, initial encounter . Comparison: None. Technique: CT of the head without contrast. Radiation reduction technique utilized.The dose-length product was 599.57 mGy-cm. FINDINGS: BRAIN PARENCHYMA AND CSF SPACES: Mild leukoaraiosis and diffuse cortical atrophy. Mild atheromatous d isease. No midline shift, mass effect or hemorrhage. The brain parenchyma and CSF spaces are otherwi se normal. VISUALIZED PARANASAL SINUSES: Well aerated. MASTOIDS: Well aerated. BONES: The bones appear intact. SOFT TISSUES: Visualized nasopharynx is normal. Superficial soft tissues are normal. IMPRESSION: No acute intracranial findings. Reviewed, dictated and finalized at location [facility]
== END 2024-05-01 14:21 | disposition home or self-care (01) ==
LOC: MICIMG 14:21
PROVIDERS: PCP Family Medicine; Visit Provider Family Medicine
DX: S09.90XA Unspecified injury of head, initial encounter (principal); X58.XXXA Exposure to other specified factors, initial encounter
CPT/HCPCS: 70450

== ENCOUNTER 2025-01-10 11:24 | Outpatient (CLI) | payer MEDICARE, SELFPAY ==
--- NOTE | ~2025-01-10 | MM_ITS ---
EXAMINATION: MM diagnostic rj BI w pepper HISTORY: Breast pain TECHNIQUE: Additional 3-D tomosynthesis images of the breasts were performed and synthetic 2-D images were generated. CAD analysis was submitted and interpreted. COMPARISON: Comparison to multiple prior studies sequentially, with oldest reviewed study dated 02/07. BREAST PARENCHYMAL COMPOSITION: Not dense: There are scattered areas of fibroglandular density. FINDINGS: The breasts are stable. No new masses, calcifications or architectural distortion in either breast to suggest malignancy. IMPRESSION: 1. No mammographic evidence for malignancy in either breast. 2. Routine yearly screening mammogram and regular clinical breast examination are recommended. BI-RADS Category 1: Negative Reviewed, dictated and finalized at location B. IMPRESSION: 1. No mammographic evidence for malignancy in either breast. 2. Routine yearly screening mammogram and regular clinical breast examination a re recommended. BI-RADS Category 1: Negative
--- OUTSIDE RECORDS SUMMARY | 2025-01-10 12:06 | XMS_ITS | Clinical Summary ---
Author Organization [facility] Address [address] [place] [address] Care Team Providers Care Cryptozoologist Name Role Phone Luis Fernando Rosales MD Unavailable Source Comments [facility],non-owned Affiliates and Associated Physician Practices is amultiple site organization consisting of ambulatory clinics and hospital sitesin [place], [place], [place] and [place]. This disclosure is being madepursuant to the Care Everywhere program and may not contain all information available regarding this patient. Last updated 18.[facility] [employer] Personal Care Device Allergies Active Allergy Reactions Criticality Noted Date Comments Penicillins 12/23/2008 Sulfa Drugs 12/23/2008 Medications * Be aware that medications may not be up to date on this document. Alwaysverify current medications with the patient. ibuprofen (MOTRIN) 600 MG tablet Take 1-3 Tabs by mouth daily. Active estradiol (ESTRACE) 0.1 MG/GM vaginal cream Insert 1 g into the vagina at bedtime. 42.5 g 1 07/16/2011 Active Active Problems Problem Noted Date Diagnosed Date S/P total hysterectomy and B SO (bilateral salpingo-oophorectomy) 07/05/2011 Screening for cervical cancer 12/23/2008 Overview (12/23/2008): 01/25/08 WNL Other screening mammogram 12/23/2008 Overview (12/23/2008): 11/30/07 WNL Osteoporosis screening 12/23/2008 Overview (12/23/2008): 2006 Screen for colon cancer 12/23/2008 Overview (12/23/2008): 2007 Family History Medical History Relation Name Comments Cancer Father Diabetes Father Heart Disease Father Hypercholesterolemia Father Hypertension Father Cancer Mother Cancer Paternal Grandfather Diabetes Paternal Grandfather Asthma Paternal Grandmother Cancer Paternal Grandmother Heart Disease Paternal Grandmother Heart Failure Paternal Grandmother Relation Name Status Comments Father Mother Paternal Grandfather Paternal Grandmother Social History Tobacco Use Types Packs/Day Years Used Date Smoking Tobacco: Never Alcohol Use Standard Drinks/Week Comments No 0 (1 standard drink = 0.6 oz pur e alcohol) Comments No Sex and Gender Information Value Date Recorded Sex Assigned at Not on file Legal Sex Female 5:56 AM BUSINESS PROFESSOR Gender Identity Not on file Sexual Orientation Not on file Last Filed Vital Signs Vital Sign Reading Time Taken Comments Blood Pressure 150/97 07/05/2011 3:08 PM BUSINESS PROFESSOR Pulse 69 07/05/2011 3:08 PM BUSINESS PROFESSOR Temperature - - Respiratory Rate - - Oxygen Saturation - - Inhaled Oxygen Concentration - - Weight 78 kg (172 lb) 07/05/2011 3:08 PM BUSINESS PROFESSOR Height 177.8 cm (5' 10) 07/05/2011 3:08 PM BUSINESS PROFESSOR Body Mass Index 24.68 07/05/2011 3:08 PM BUSINESS PROFESSOR Plan of Treatment Health Maintenance Due Date Last Done Comments BONE DENSITY TESTING 1955 COLOGUARD (AGES 45-75) - COL ON CA SCREENING 1955 COLON MONITORING 1955 COLONOSCOPY - COLON CA SCREENING 1955 CT COLONOGRAPHY - COLON CA SCREENING 1955 Colorectal Cancer Screening 1955 FIT - COLON CA SCREENING 1955 FLEX SIG - COLON CA SCREENING 1955 LIPID TESTING 1955 MEDICARE AWV 12 MONTHS 1955 HEPATITIS C SCREENING 02/23/1973 DTAP/TDAP/TD VACCINES (1 - Tdap) 1974 PNEUMOCOCCAL VACCINE 50+ (1 of 1 - PCV) 2005 ZOSTER VACCINE (1 of 2) 2005 MAMMOGRAM 07/05/2013 07/05/2011, 04/09/2010, 04/08/2009 COVID-19 VACCINE ( - 2023-2 5 season) 2024 DEPRESSION SCREENING 06/27/2024 INFLUENZA VACCINE (#1) 2025 Respiratory Syncytial Virus (RSV) Vaccine Pt: or over 60 yrs (1 - 1-dose 75+ series) 2030 HEPATITIS B VACCINE Aged Out No longe r eligible based on patient's age to complete this topic HIB VACCINE Aged Out No longer eligi ble based on patient's age to complete this topic HPV VACCINE Aged Out No longer eligi ble based on patient's age to complete this topic MENINGOCOCCAL (Group B) VACCINE SHARED DECISION-MAKING Aged Out No longer eligible based on patient's age to complete this topic MENINGOCOCCAL GROUPS A/C/Y/W VACCINE Aged Out No longer eligible b ased on patient's age to complete this topic Procedures Procedure Name Priority Date/Time Associated Diagnosis Comments MAMMO BILAT SCREENING Routine 07/05/2011 2:37 PM BUSINESS PROFESSOR Other screening mammogram from Last 3 Months or Most Recently Relevant to Health Maintenance Results * MAMMO SCREENING DIGITAL IMAGE BILAT G0202 (07/05/2011 2:37 PM BUSINESS PROFESSOR) Anatomical Region Laterality Modality Breast Bilateral Mammography 07/05/2011 3:30 PM BUSINESS PROFESSOR Narrative 07/05/2011 3:41 PM BUSINESS PROFESSOR DIGITAL BILATERAL SCREENING MAMMOGRAMS WITH CAD CORRELATION DATE: 07/05/2011. PREVIOUS EXAM DATE: 04/09/2010 and 04/08/2009. PERTINENT HISTORY: Routine screening. TECHNIQUE: Bilateral craniocaudad (CC) and mediolateral oblique (MLO) views. These images were interpreted with the aid of the iCAD Second Look. TECHNOLOGIST: TANIA Singh TISSUE DENSITY: Breast tissue is inhomogeneously dense. This may lower the sensitivity of mammography. Please correlate with clinical examination. FINDINGS: No discrete abnormality. No significant new finding. ASSESSMENT: Negative, BI-RADS 1. RECOMMENDATIONS: Routine followup in one year. The above findings should be correlated with physical examination. A relatively nonspecific study should not preclude additional evaluation if suspicious findings are present clinically. An [employer] Certified Facility Procedure Note Lele Tenorio MD - 07/05/2011 DIGITAL BILATERAL SCREENING MAMMOGRAMS WITH CAD CORRELATION DATE: 07/05/2011. PREVIOUS EXAM DATE: 04/09/2010 and 04/08/2009. PERTINENT HISTORY: Routine screening. TECHNIQUE: Bilateral craniocaudad (CC) and mediolateral oblique (MLO) views. These images were interpreted with the aid of the iCAD Second Look. TECHNOLOGIST: TANIA Singh TISSUE DENSITY: Breast tissue is inhomogeneously dense. This may lower the sensitivity of mammography. Please correlate with clinical examination. FINDINGS: No discrete abnormality. No significant new finding. ASSESSMENT: Negative, BI-RADS 1. RECOMMENDATIONS: Routine followup in one year. The above findings should be correlated with physical examination. A relatively nonspecific study should not preclude additional evaluation if suspicious findings are present clinically. An [employer] Certified Facility Luis Fernando Rosales MD MAMMO ORDERABLES Final Result from Last 3 Months or Most Recently Relevant to Health Maintenance Insurance MEDICARE [facility] * Guarantor: HELIO RONQUILLO Account Type Relation to Patient Date of Phone Billing Address Personal/Family [id number] [id number] MEDICARE [facility] * Guarantor: KATINA RONQUILLO Account Type Relation to Patient Date of Phone Billing Address Personal/Family [id number] [id number] Care Teams Cryptozoologist Relationship Specialty Start Date End Date Luis Fernando Rosales MD [address] [place] [address] PCP - OBGYN 12/23/08
--- OUTSIDE RECORDS SUMMARY | 2025-01-10 12:06 | XMS_ITS | Data Portability ---
Author Organization [place] - [facility], Main Office Address [address] [place] [address] Care Team Providers Care Master [employer] Name Role Phone EDGARDO WHITNEY Primary Care Provider [phone] EDGARDO WHITNEY Referring Provider [phone] Assessment Encounter Date Assessment Date Assessment LastModified by Organization Details LastModified Time 09/20/2022 09/20/2022 Patient presents for foot pain bilaterally right greater than left. Most her pain is in the right foot. She has degenerative changes metatarsal tarsal area both feet and what appears to be a neuroma in the 3rd interspace on the right. She has pain to palpation manipulation she has tried an insert in the past without a whole lot of relief. I recommended an injection for the neuroma this was done with 10 mg Kenalog 2 cc 1% lidocaine. For the degenerative change in her foot in the neuroma for prescription drug management will try Voltaren 75 mg. For pain and inflammation. I will see her back in a month after she has gotten insert and see how much pain she has in exactly with the pain is located. For neuroma if it does not get better I can excise that however for the degenerative changes in the midfoot area back we could consider cheilectomy if that bothers her enough discussed. [email or web address] Not available 09/20/2022 12:32:46 10/23/2024 10/23/2024 The patient has bilateral midfoot pain due to degenerative osteoarthritis. The patient states oral anti-inflammatory medication does help we talked about taking this chronically we will get her a prescription for diclofenac 75 mg b.i.d. with food. We are going to start with a course of a burst and taper of oral steroids she will take that 1st then follow that with the diclofenac. She does have shoe inserts she will wear these these seemed to help somewhat. As far as the hypertrophic spurring is concerned, surgical intervention could help with this particularly if it is causing pain with shoe wear. We talked that this will not fix the arthritis but may give her some relief with the hypertrophic spurring over the dorsum of both feet. The patient does have some degenerative joint disease in the tarsometatarsal joint of the left great toe. She also has some old hypertrophic ossicles possibly due to an old ununited fracture at the base of the right 5th metatarsal. We will try nonsurgical treatment 1st if her pain continues she could consider surgical excision of the hypertrophic spurring particularly over the dorsum of both feet. We will see how she does with time. She voiced understanding and agreed with the above plan if she decides she wants to do anything else with her feet she will see Dr. Pope for consultation for possible surgical intervention. [email or web address] Not available 10/23/2024 11:48:27 Plan of Treatment Reminders Order Date Submit Date Provider Last Modified By Organization Details Last Modified Time Details Appointments None recorded. Lab None recorded. Referral None recorded. Procedures injection/a spiration joint/bursa (PROC) - in office procedure, administere d by provider 2022 023 [email or web address] In-Office Order, Internal Use Only DO Not Attach Compendium DO Not Attach Compendium, Do Not Delete/merge, [id number] 3 12:33:25 Surgeries None recorded. Imaging XR, foot 2024 025 [email or web address] [facility] [place], [address], [place], [address], 5 12:22:51 XR, foot 2022 023 [email or web address] [facility] [place], [address] [facility] [address], [place], [address], 3 12:43:46 Medication Orders prednisone 10 mg tablets in a dose pack 2024 025 [email or web address] [facility] #[id number], [address] [facility], [place], [place], [id number], 5 12:22:51 diclofenac sodium 75 mg tablet,enid yed release 2024 025 [email or web address] [facility] #66236, [address], [place], [id number], 5 12:22:51 Kenalog 10 mg/mL suspension for injection [email or web address] #71486, [address], [place], [place], [id number], 5 11:05:34 ropivacaine (PF) 5 mg/mL (0.5 %) injection solution [address] [facility]19613, [address] [facility], [place], [id number], 5 11:06:17 diclofenac sodium 75 mg tablet,enid yed release [address] [facility]91227, [address] [facility], [place], [place], [id number], 5 11:04:04 Patient TargetsNo targets recorded. Patient InstructionsNo instructions recorded. Reason for Referral None Reported. Results Created Date Observation Date Name Description Value Unit Range Abnormal Flag Note LastModifiedBy Organization Detail LastModifiedTime 01/09/20 21 XR, hip + pelvi s, unila teral No observ ation record ed. [id number] [facility] [place] [address], [place], [address], 08/25/2022 22:24:06 02/13/20 21 MRI hip lt wo [facility] [address], [facility] [place] [address] [phone] Patien t Name: RODRIGO RONQUILLO Access ion #: [id number] Sex: F : 1954 6 Locati on: IND Attend ing Physic dick: Charity locke Physic dick: ATIYA ALEX WORTHINGTON Exam Date: 9:56 AM Exam Name: MRI HIP LT WO Admitt ing Diagno sis(es ): RADIOL OGY REPORT - FINAL EXAM: MRI HIP LT WO HISTOR Y: PAIN left hip pain withou t trauma COMPAR PAYTON: None. TECHNI QUE: Multip lanar multis equenc e noncon trast MR images of the left hip was perfor med. FINDIN GS: Bones: Anatom ic alignm ent. No eviden ce of a fractu re, destru ctive proces s or avascu lar necros is. Cartil age: Preser aliya Labrum : The labrum is not well evalua belkys correl ate for a degene rative tear. Page 1 of 2 [facility] Patien t Name: RODRIGO RONQUILLO Access ion #: [id number] Sex: F : 1954 6 Exam Date: 9:56 AM Exam Name: MRI HIP LT WO Admitt ing Diagno sis(es ): Joint space: There is a modera te joint effusi on on the left. Bursa: Mild left greate r trocha nteric bursit is. Pelvis : Unrema rkable as visual ized Muscle s: Intact bilate rally. IMPRES KIERA: See above. Create d and electr onical ly signed by: Philip river MD Signed Date: 2:31 PM (CT) Dictat ed by: Philip river MD DD: 2:31 PM (CT) DT: 2:31 PM (CT) Page 2 of 2 [id number] [facility] (Imaging) [address] [place], [address], 08/25/2022 22:24:06 02/14/20 21 02/12/2021 MRI, hip, w/o contr ast No observ ation record ed. [id number] [facility] [address], [place], [address], 08/25/2022 22:24:06 09/21/19 23 XR, foot No observ ation record ed. [email or web address] [facility] [place] [address], [place], [address], 09/20/2022 12:33:26 10/24/19 25 XR, foot No observ ation record ed. [email or web address] [facility] [place] [address], [place], [address], 10/23/2024 11:50:40 Result Notes None recorded. Problems Name Problem SNOMED Code Status Onset Date Resolution Date Notes Provider Name and Address Organization Details Recorded Time Foot pain 33177253 Active 2022 SESAR Whitaker, [employer] [facility] mTraks 3 11:20:38 Martinez's neuroma of right foot 6076764272106 08 Active 2022 Alex Heller MD [address], [address], [place], [address], [employer] 3 12:33:39 Osteoarthri tis of ankle and/or foot 08656782 Active 2022 Alex Heller MD [address], [address], [place], [address], [employer] 3 12:33:53 Bilateral foot joint pain 6163619763233 9109 Active 2024 ADONAY Barton, [employer] [facility] [employer]ks 5 10:38:55 Bilateral osteoarthri tis of feet 2950029137087 03 Active 2024 FLAQUITO Perez [address], [address], [place], [address], [place] - [employer] 5 11:48:41 Problem Notes None recorded. Procedures Surgical History Date Name Laterality Status Provider Name and Address Organization Details Recorded Time 09/21/19 23 Ortho - Cortisone Injection completed Alex Heller MD [address] [facility], [facility] [address], [place], [address], [facility] [employer] [facility] 09/20/2022 12:31:36 Hysterectomy completed Blancatoay Reynoso [facility] 09/20/2022 11:17:58 Cancer Surgery completed Blancatoya parham [facility] 09/20/2022 11:18:19 operation on mandible completed Blancatoya Reynoso [facility] 09/20/2022 11:18:56 Imaging Results None recorded. Procedure Notes None recorded. Medical Equipment None Reported. Allergies Allergen ID Allergen Name Allergen Category Reaction Reaction Severity Criticality Documentation Date Start Date Code Code System Note Provider Name and Address Organization Details Recorded Time 70951 Substance with sulfonami de structure and antibacte rial mechanism of action (substanc e) medicatio n hives Not available Not available 08/25/2022 59374 8003 SNOMED Not Available [facility] 3 22:24:02 38716 Product containin g penicilli n (product) medicatio n hives Not available Not available 08/25/2022 19057 8001 SNOMED Not Available [facility] 3 22:24:02 Medications Name Sig Start Date Stop Date Status Note LastModified by Organization Details LastModified Time losartan 50 mg tablet TAKE 1 TABLET BY MOUTH TWICE DAILY active Not Available Not Available No t Available cyclobenzap rine 10 mg tablet Take 1 tablet every day by oral route at bedtime. active Not Available Not Available No t Available doxycycline hyclate 100 mg capsule TAKE 1 CAPSULE BY MOUTH TWICE DAILY FOR 10 DAYS active Not Available Not Available No t Available atorvastati n 10 mg tablet Take 2 tablets every day by oral route at bedtime. active Not Available Not Available No t Available azithromyci n 250 mg tablet TAKE 2 TABLETS BY MOUTH FOR 1 DAY THEN TAKE 1 TABLET BY MOUTH DAILY FOR 4 DAYS active Not Available Not Available No t Available fluconazole 150 mg tablet TK 1 T PO NOW. REPEAT IN 48-72 H IF SYMPTOMS STILL PRESENT active Not Available Not Available No t Available tretinoin 0.025 % topical cream APPLY A PEA SIZED AMOUNT TOPICALLY TO ENTIRE FACE EVERY NIGHT AT BEDTIME AFTER CLEANSING . LAYER WITH MOISTURIZ ER NEEDED active Not Available Not Available No t Available meloxicam 15 mg tablet TAKE 1 TABLET BY MOUTH EVERY DAY 10/23 completed Not Available Not Available Not Available tramadol 50 mg tablet TAKE 1 TABLET BY MOUTH EVERY 6 HOURS NEEDED FOR PAIN 10/23 completed Not Available Not Available Not Available pantoprazol e 20 mg tablet,enid yed release 2 tabs at bedtime active Not Available Not Available No t Available prednisone 10 mg tablets in a dose pack Take 1 tab by mouth, 3 times a day for 3 daysTake 1 tab by mouth 2 times a day for 2 daysTake 1 tab by mouth once a day for 1 day 2024 active Not Available Not Available Not Avai lable alprazolam 0.5 mg tablet Take 0.5 tablets 3 times a day by oral route as needed. active Not Available Not Available No t Available amitriptyli ne 25 mg tablet TK 1 T PO HS active Not Available Not Available No t Available Kenalog 10 mg/mL suspension for injection Take 10 mg by injection route. 10/23 completed [facility]: 0003- 0494- 20 Not Available Not Available Not Available pantoprazol e 40 mg tablet,enid yed release TAKE 1 TABLET BY MOUTH TWICE DAILY 10/23 completed Not Available Not Available Not Available tacrolimus 0.1 % topical ointment APPLY TO THE AFFECTED AREAS OF THE FACE ONCE NIGHTLY UNTIL CLEAR. THEN USE NEEDED FOR FLARES KATINA R. USE IN ROTATION WITH KETOCONAZ OLE. active Not Available Not Available No t Available losartan 25 mg tablet TK 2 TS PO DAILY active Not Available Not Available No t Available diclofenac sodium 75 mg tablet,enid yed release TAKE 1 TABLET BY MOUTH TWICE DAILY 2024 active Not Available Not Available Not Avai lable ergocalcife rol (vitamin D2) 1,250 mcg (50,000 unit) capsule TAKE 1 CAPSULE BY MOUTH 1 TIME A WEEK active Not Available Not Available No t Available clobetasol 0.05 % topical ointment APPLY TOPICALLY TO THE AFFECTED AREA 2 TO 3 TIMES EVERY WEEK active Not Available Not Available No t Available estradiol 0.01% (0.1 mg/gram) vaginal cream USE VAGINALLY 2 TIMES A WEEK AT NIGHT active Not Available Not Available No t Available albuterol sulfate HFA 90 mcg/actuati on aerosol inhaler INHALE 2 PUFFS BY MOUTH EVERY 6 HOURS NEEDED FOR WHEEZING active Not Available Not Available No t Available ketoconazol e 2 % topical cream APPLY TOPICALLY TO AFFECTED AREAS OF FACE EVERY DAY UNTIL CLEAR. THEN USE NEEDED FOR FLARES. USE IN ROTATION WITH TACROLIMU S active Not Available Not Available No t Available fluoxetine 20 mg capsule TAKE 3 CAPSULES BY MOUTH EVERY DAY active Not Available Not Available No t Available desipramine 10 mg tablet Take 2 tablets every day by oral route at bedtime. active Not Available Not Available No t Available bupropion HCl XL 150 mg 24 hr tablet, extended release TAKE 1 TABLET BY MOUTH EVERY MORNING active Not Available Not Available No t Available melatonin 2020 active Not Available Not Available Not Avai lable tramadol 10/23 completed Not Available Not Available Not Available ibuprofen 2020 active Not Available Not Available Not Avai lable lidocaine (PF) 10 mg/mL (1 %) injection solution In office injection administe red by the provider 10/23 completed [facility]: 0409- 4276- 17 Not Available Not Available Not Available hydrochloro thiazide 12.5 mg tablet Take 0.5 tablets every day by oral route. active Not Available Not Available No t Available Suprep Bowel Prep Kit 17.5 gram-3.13 gram-1.6 gram oral solution MIX AND DRINK UTD 10/23 completed Not Available Not Available Not Available ropivacaine (PF) 5 mg/mL (0.5 %) injection solution Take 10 mg by injection route. 10/23 completed Not Available Not Available Not Available Vitals Date Recorded Body height Body mass index (BMI) Body weight Provider Name and Address Organization Details Last Updated DateTime 09/20/2022 177.8 cm 25 kg/m2 70041.07 g SESAR Whitaker [place] [facility] 09/20/2022 11:16:02 Date Recorded Body height Body mass index (BMI) Body weight Provider Name and Address Organization Details Last Updated DateTime 10/23/2024 177.8 cm 26.4 kg/m2 46202 g Torie Lopez CNA [place] [facility] 10/23/2024 10:59:03 Date Recorded Body mass index (BMI) Body height Body weight Provider Name and Address Organization Details Last Updated DateTime 01/08/2021 26.3 kg/m2 177.8 cm 53676.4 g Not Available [facility] 08/25/2022 22:22:34 Date Recorded Body mass index (BMI) Body height Body weight Provider Name and Address Organization Details Last Updated DateTime 02/12/2021 26.1 kg/m2 177.8 cm 96402.81 g Not Available [facility] 08/25/2022 22:22:34 Date Recorded Body mass index (BMI) Body height Body weight Provider Name and Address Organization Details Last Updated DateTime 02/26/2021 26.4 kg/m2 177.8 cm 79516 g Not Available [facility] 08/25/2022 22:22:34 Social History None recorded. Functional Status Question Answer Note LastModified by [employer] ion Details LastModified Time What is your level of alcohol consumption? Occasional Information not available 10/23/2024 Mental Status None recorded. Family History Relationship Description Onset Age of this Age Resolved Age Notes LastModified by Organization Details LastModified Time Father Heart disease [email or web address] Not available 2022 11:17:11 Father Family history of malignant neoplasm Not available 2022 11:17:36 Father Hypertensive disorder [email or web address] Not available 2024 11:08:16 Paternal Grandmother Heart disease [email or web address] Not available 2024 11:07:33 Paternal Grandmother Family history of malignant neoplasm [email or web address] Not available 2024 11:08:01 Brother Family history of stroke Not available 2022 11:17:19 Brother Family history of malignant neoplasm [email or web address] Not available 2022 11:17:36 Brother Hypertensive disorder [email or web address] Not available 2024 11:08:16 Paternal Aunt Heart disease multip le aunts Not available 10/23/2024 11:07:51 Medical History Condition Response ARTHRITIS Y USE OF NSAIDS Y HYPERTENSION Y CANCER: SPECIFY Y Gynecological HistoryNo gynecological history recorded. Obstetrics History GPAL:G 0 P 0 0 0 0 Past Encounters Encounter ID Performer Location Encounter Start Date Encounter Closed Date Diagnosis/Indication Diagnosis SNOMED-CT Code Diagnosis ICD10 Code Diagnosis Note [id number] FLAQUITO Perez [facility] [place] [address] [place] [address] 01/08/2021 00:00:00 01/08/2021 10:29:31 [id number] Alex Heller MD [facility] [place] [address] [place] [address] 02/12/2021 00:00:00 02/12/2021 11:16:19 [id number] Alex Heller MD [facility] [place] [address] [place] [address] 02/26/2021 00:00:00 02/26/2021 10:35:55 [id number] Alex Heller MD [facility] [place] [address] [place] [address] 09/20/2022 10:35:21 09/20/2022 12:43:46 Foot pain 00396841 M79.672 M79.671 Martinez's n euroma of right foot 2769651309 25499 G57.61 Osteoarthr itis of ankle and/or foot 76736703 M19.384 [id number] Manuel Farrell MD [facility] [place] [address] [place] [address] 10/23/2024 10:22:11 10/23/2024 11:45:35 Bilateral foot joint pain 4536123157 0211189 M79.671 M79.672 Bilateral osteoarthritis of feet 0619560210 96337 M19.071 M19.072 Health Concerns Section Related Observation LastModified by Organization Detai ls LastModified Time None Recorded Concern Status LastModified by Organization Details LastModified Time None Recorded Advance Directives Directive None Recorded Payers Insurance Date Sequence Insurance Name Policy Number Policy Joyce Covered Member ID Joyce Member ID Guarantor Name 10/23/2024 2 [place] [id number] Katina Ronquillo [id number] Katina Ronquillo 10/23/2024 2 [place] Cristal Ronquillo [id number] Katina Ronquillo 10/23/2024 1 [employer] (POS) [id number] Cristal Ronquillo [id number] Katina Ronquillo 10/23/2024 1 [employer] [id number] Cristal Tateuca [id number] Katina Ronquillo Notes Date Note Type Note Provider Name and Address Organization Details Recorded Time 09/20/2022 text/html Patient presents foot pain bilaterally right greater than left. She has pain in the foot she has degenerative changes midfoot area spurring but more the pain is in the metatarsal area particularly under the 3rd between the 3rd and 4th toes as in the Martinez neuroma. She does have arthritis but also has some neuroma type symptoms. Alex Heller MD [address] [place] [address], [place], [address], [facility] [employer] 09/20/2022 12:34:39 10/23/2024 text/html The patient retu rns with bilateral foot pain. She has had chronic issues with both feet due to midfoot osteoarthritis and also multiple other sites of mild to moderate osteoarthritis of the midfoot is more severe. She notes bony bossing over the dorsum of both feet in addition to some occasional pain at the base of the 5th metatarsal laterally on the right. Left foot also show some bony bossing over the tarsal metatarsal joint at the base of the 1st metatarsal. The patient reports that shoe wear sometimes bothers her rubs on those bony bumps she also has aching pain when she tries to walk barefoot or without her shoe inserts. She has bilateral orthotics that she has had for couple of years now. These do help she also takes ibuprofen occasionally which gives her some pain relief when she has more significant pain. The patient has pain is worse with activity somewhat relieved by rest. She has to wear shoes all the time with the orthotics to give her a chance to avoid the more significant pain. She has not been evaluated by us for a couple of years now she comes in today for further evaluation and treatment. Previously she was also having pain due to a neuroma in the right foot this has resolved with previous treatment. She denies any new trauma or injury to either foot. No neurovascular deficits. New past medical history sheet was reviewed and signed on the intake sheet of today's date drug allergies current medications family social history previous surgical history 10 point review of systems was reviewed and discussed in detail today with the patient. She states the pain in both feet is about a 5 on a scale of 1-10 today. FLAQUITO Perez [address] [facility] [address], [place], [address], [place] [facility] 10/23/2024 11:52:42 OBGyn Episode No OBEpisode recorded.
--- OUTSIDE RECORDS SUMMARY | 2025-01-10 12:06 | XMS_ITS | Encounter Summary ---
Author Organization [facility] Address [address] [place] [address] Care Team Providers Care Sap Pi Architect Name Role Phone Luis Fernando Rosales MD Unavailable Encounter Details Date Type Department Care Team (Late st Contact Info) Description 05/20/2021 Lab Requisition [facility] Care DermPath Lab [address] [facility] [place] [id number] Gregg Antonio Jr., MD [address] [facility] [address] [place] [address] Social History Tobacco Use Types Packs/Day Years Used Date Smoking Tobacco: Never Alcohol Use Standard Drinks/Week Comments No 0 (1 standard drink = 0.6 oz pur e alcohol) Comments No Sex and Gender Information Value Date Recorded Sex Assigned at Not on file Legal Sex Female 5:56 AM MANAGER CONFIGURATION Gender Identity Not on file Sexual Orientation Not on file documented as of this encounter Plan of Treatment Not on file documented as of this encounter Procedures Procedure Name Priority Date/Time Associated Diagnosis Comments DERMATOPATHOLOGY Routine 05/20/2021 12:0 0 AM MANAGER CONFIGURATION documented in this encounter Results * DERMATOPATHOLOGY (05/20/2021 12:00 AM MANAGER CONFIGURATION) Case Report Dermatopathology Report Case: [id number] Authorizing Provider: Gregg Antonio Jr., MD Collected: 05/20/2021 12:00 AM Ordering Location: [facility] Care DermPath Lab Received: 05/20/2021 12:02 PM Pathologist: Aster Ferguson MD Specimen: Skin, right lower cutaneous lip 12:44 PM [facility] DERMATOPATHOLOGY LABORATORY Final Diagnosis Specimen A. SKIN, right lower cutaneous lip: BASAL CELL CARCINOMA, NODULAR TYPE (C44.319) 12:44 PM [facility] DERMATOPATHOLOGY LABORATORY at 1244 MANAGER CONFIGURATION Clinical History Basal cell carcinoma vs sebaceous hyperplasia vs dermal nevus. . 12:44 PM [facility] DERMATOPATHOLOGY LABORATORY Gross Description Specimen A: Received is one formalin filled container labeled with the patient's name and designated right lower cutaneous lip. The specimen consists of a shave biopsy measuring 2c7x6iw. Jar 0. 12:44 PM [facility] DERMATOPATHOLOGY LABORATORY Microscopic Description Specimen A. SKIN, right lower cutaneous lip: Within the dermis there are aggregates of basaloid cells with a high nuclear to cytoplasmic ratio and peripheral palisading. 12:44 PM [facility] DERMATOPATHOLOGY LABORATORY Disclaimer An external and internal positive and negative controls are appropriate for the histochemical, immunohistochemical and immunofluorescence stain(s) in this case (if any), except where stated explicitly. The performance characteristics of the stain(s) cited in this report were developed and its performance characteristic determined by the Dermatopathology Laboratory at [facility], directed by Dr. Lisa Cruz. These tests need not be, and therefore are not, approved by the [place] Food and Drug Administration. The tests are used for clinical purposes. Billing Codes Specimen Charges Stain Charges 30654 1 12:44 PM [facility] DERMATOPATHOLOGY LABORATORY Embedded Images 12:44 PM [facility] DERMATOPATHOLOGY LABORATORY Pathology/Cytolog y TISSUE SPECIMEN FROM SKIN / Unknown 05/20/2021 05/20/2021 12:02 PM [facility] Gregg Antonio Jr., MD LAB - PATHOLOGY/CYTOLOG Y ORDERABLES Final Result DERMATOPATHOLOGY LABORATORY [facility] - Department of Dermatology [address], [address] [phone] documented in this encounter Visit Diagnoses Not on filedocumented in this encounter Care Teams Sap Pi Architect Relationship Specialty Start Date End Date Luis Fernando Rosales MD [address] [place] [address] PCP Danitza MOTT 12/23/08 documented as of this encounter
--- OUTSIDE RECORDS SUMMARY | 2025-01-10 12:06 | XMS_ITS | Encounter Summary ---
Author Organization [facility] Address [address] [place] [address] Care Team Providers Care Pockets And Pieces Necktie Operator Name Role Phone Luis Fernando Rosales MD Unavailable Encounter Details Date Type Department Care Team (Late st Contact Info) Description 05/24/2023 Lab Requisition [facility] - DermPath Lab [address] [facility] [place] [phone] Gregg Antonio Jr., MD [address] [facility] [address] [place] [address] Social History Tobacco Use Types Packs/Day Years Used Date Smoking Tobacco: Never Alcohol Use Standard Drinks/Week Comments No 0 (1 standard drink = 0.6 oz pur e alcohol) Comments No Sex and Gender Information Value Date Recorded Sex Assigned at Not on file 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 Gender Identity Not on file Sexual Orientation Not on file documented as of this encounter Plan of Treatment Not on file documented as of this encounter Procedures Procedure Name Priority Date/Time Associated Diagnosis Comments DERMATOPATHOLOGY Routine 05/23/2023 12:0 0 AM LINE PRODUCTION COOK documented in this encounter Results * DERMATOPATHOLOGY (05/23/2023 12:00 AM LINE PRODUCTION COOK) Case Report Dermatopathology Report Case: [id number] Authorizing Provider: Gregg Antonio Jr., MD Collected: 05/23/2023 12:00 AM Ordering Location: [facility] DermPath Lab Received: 05/24/2023 01:58 PM Pathologist: Bonnie Jade MD Specimen: Skin, left proximal pretibial region 3:59 PM [facility] DERMATOPATHOLOGY LABORATORY Final Diagnosis Specimen A. SKIN, left proximal pretibial region: BASAL CELL CARCINOMA, SUPERFICIAL MULTIFOCAL (C44.719) 3 3:59 PM [facility] DERMATOPATHOLOGY LABORATORY at 1559 LINE PRODUCTION COOK Clinical History Squamous Cell Carcinoma vs. Basal Cell Carcinoma 3 3:59 PM [facility] DERMATOPATHOLOGY LABORATORY Gross Description Specimen A: Received is one formalin filled container labeled with the patient's name and designated left proximal pretibial region. The specimen consists of a shave biopsy measuring 6x5x1 mm. Jar 0. 3 3:59 PM [facility] DERMATOPATHOLOGY LABORATORY Microscopic Description Specimen A. SKIN, left proximal pretibial region: Attached to the undersurface of the epidermis, there are small aggregates of basaloid cells with a high nuclear to cytoplasmic ratio and peripheral palisading. 3 3:59 PM [facility] DERMATOPATHOLOGY LABORATORY Disclaimer An external and internal positive and negative controls are appropriate for the histochemical, immunohistochemical and immunofluorescence stain(s) in this case (if any), except where stated explicitly. The performance characteristics of the stain(s) cited in this report were developed and its performance characteristic determined by the Dermatopathology Laboratory at [facility], directed by Dr. Lisa Cruz. These tests need not be, and therefore are not, approved by the [place] Food and Drug Administration. The tests are used for clinical purposes. Billing Codes Specimen Charges Stain Charges 68921 1 3 3:59 PM [facility] DERMATOPATHOLOGY LABORATORY Embedded Images 3 3:59 PM [facility] DERMATOPATHOLOGY LABORATORY Pathology/Cytolog y TISSUE SPECIMEN FROM SKIN / Unknown 05/23/2023 05/24/2023 1:58 PM [facility] us Gregg Antonio Jr., MD LAB - PATHOLOGY/CYTOLOG Y ORDERABLES Final Result DERMATOPATHOLOGY LABORATORY [facility] - Department of Dermatology [address] [phone] documented in this encounter Visit Diagnoses Not on filedocumented in this encounter Care Teams Pockets And Pieces Necktie Operator Relationship Specialty Start Date End Date Luis Fernando Rosales MD [address] [place] [address] [address] [place] [address] PCP - TIERA 12/23/08 documented as of this encounter
--- OUTSIDE RECORDS SUMMARY | 2025-01-10 12:06 | XMS_ITS | Encounter Summary ---
Author Organization [facility] Address [address] [place] [address] Care Team Providers Care Licensed Life And Health Agent Name Role Phone Luis Fernando Rosales MD Unavailable Encounter Details Date Type Department Care Team (Late st Contact Info) Description 04/21/2023 Lab Requisition [facility] - DermPath Lab [address] 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 Gender Identity Not on file Sexual Orientation Not on file documented as of this encounter Plan of Treatment Not on file documented as of this encounter Procedures Procedure Name Priority Date/Time Associated Diagnosis Comments DERMATOPATHOLOGY Routine 04/20/2023 12:0 0 AM CDT documented in this encounter Results * DERMATOPATHOLOGY (04/20/2023 12:00 AM CDT) Case Report Dermatopathology Report Case: [id number] Authorizing Provider: Gregg Antonio Jr., MD Collected: 04/20/2023 12:00 AM Ordering Location: [facility] DermPath Lab Received: 04/21/2023 12:59 PM Pathologist: Aster Ferguson MD Specimen: Skin, left proximal pretibial region 12:30 PM CDT DERMATOPATHOLOGY LABORATORY Final Diagnosis Specimen A. SKIN, left proximal pretibial region: BASAL CELL CARCINOMA, SUPERFICIAL MULTIFOCAL (C44.719) 12:30 PM CDT DERMATOPATHOLOGY LABORATORY at 1230 CDT Clinical History Squamous Cell Carcinoma vs. Basal Cell Carcinoma 12:30 PM CDT DERMATOPATHOLOGY LABORATORY Gross Description Specimen A: Received is one formalin filled container labeled with the patient's name and designated left proximal pretibial region. The specimen consists of a shave biopsy measuring 5x4x1 mm. Jar 0. 12:30 PM CDT DERMATOPATHOLOGY LABORATORY Microscopic Description Specimen A. SKIN, left proximal pretibial region: Attached to the undersurface of the epidermis, there are small aggregates of basaloid cells with a high nuclear to cytoplasmic ratio and peripheral palisading. 12:30 PM CDT DERMATOPATHOLOGY LABORATORY Disclaimer An external and internal positive and negative controls are appropriate for the histochemical, immunohistochemical and immunofluorescence stain(s) in this case (if any), except where stated explicitly. The performance characteristics of the stain(s) cited in this report were developed and its performance characteristic determined by the Dermatopathology Laboratory at [facility], directed by Dr. Lisa Cruz. These tests need not be, and therefore are not, approved by the [place] Food and Drug Administration. The tests are used for clinical purposes. Billing Codes Specimen Charges Stain Charges 45478 1 12:30 PM CDT DERMATOPATHOLOGY LABORATORY Embedded Images 12:30 PM CDT DERMATOPATHOLOGY LABORATORY Pathology/Cytolog y TISSUE SPECIMEN FROM SKIN / Unknown 04/20/2023 04/21/2023 12:59 PM CDT us Gregg Antonio Jr., MD LAB - PATHOLOGY/CYTOLOG Y ORDERABLES Final Result DERMATOPATHOLOGY LABORATORY [facility] - Department of Dermatology [address] [phone] documented in this encounter Visit Diagnoses Not on filedocumented in this encounter Care Teams Licensed Life And Health Agent Relationship Specialty Start Date End Date Luis Fernando Rosales MD [address] [place] [address] PCP - OBGYN 12/23/08 documented as of this encounter
--- OUTSIDE RECORDS SUMMARY | 2025-01-10 12:06 | XMS_ITS | Clinical Summary ---
Author Organization [facility] Address [address] [place] [address] Care Team Providers Care Medical Record Specialist Name Role Phone Serena Salazar MD Primary Care Provider [phone] Allergies Active Allergy Reactions Criticality Noted Date Comments Penicillins Hives High 12/23/2008 Sulfa (Sulfonamide Antibiotics) Hives High 07/28 Medications ergocalciferol (VITAMIN D2) 50,000 unit capsule TK 1 C PO Q WK 2 8 Active albuterol HFA 90 mcg inhaler Take 2 Puffs by inhalation every 6 hours as needed for Shortness of Breath. Active clindamycin HCl (CLEOCIN) 300 mg Capsule TK ONE C PO Q 6 H PRN TAT 0 8 Active cyclobenzaprin e (FLEXERIL) 10 mg tablet TK 1 T PO TID PRF PAIN 0 9 Active desipramine (NORPRAMIN) 10 mg Tablet TK 1 T PO HS 0 Active Lactobac 40-Bifido 3-S.thermop (Probiotic) 100 billion cell Capsule daily. Active rimegepant 75 mg Tablet, Rapid Dissolve Take 75 mg by mouth. 2 Active simethicone 125 mg Tablet, Chewable as needed 1 Active diclofenac sodium (VOLTAREN) 75 mg Tablet, Delayed Release (E.C.) 3 Active ALPRAZolam (XANAX) 0.5 mg tablet Take 0.5 mg by mouth. 3 Active FLUoxetine (PROzac) 40 mg capsule Take 40 mg by mouth daily. 3 Active hydroCHLOROthi azide 25 mg tablet Take 25 mg by mouth daily. 3 Active losartan (COZAAR) 50 mg tablet Take 50 mg by mouth 2 times daily. 3 Active pantoprazole (PROTONIX) 20 mg Tablet, Delayed Release (E.C.) Take 20 mg by mouth 2 times daily. 3 Active fluorouraciL (EFUDEX) 5 % Cream Apply 1 Application to affected area 2 times daily. 3 Active Melatonin 1 mg/4 mL Drops Active calcium carbonate + vitamin D (CALTRATE+D) 600 mg-10 mcg (400 unit) Tablet Take 2 Tablets by mouth daily. Active clobetasoL (TEMOVATE) 0.05 % Ointment Use 2-3 times per week. 60 Gram 5 4 Active amLODIPine (NORVASC) 5 mg tablet Take 5 mg by mouth daily. 4 03/14/20 25 Active omeprazole (PriLOSEC) 20 mg Capsule, Delayed Release(E.C.) 5 Active tacrolimus (PROTOPIC) 0.1 % Ointment APPLY TO THE AFFECTED AREAS OF THE FACE ONCE NIGHTLY UNTIL CLEAR. THEN USE NEEDED FOR FLARES THEREAFTER. USE IN ROTATION WITH KETOCONAZOLE. 4 Active atorvastatin (LIPITOR) 20 mg tablet 5 Active estradioL (ESTRACE) 0.01% (0.1 mg/g) vaginal creamIndicatio ns:Vaginal atrophy Use at night twice weekly. 42.5 Gram 5 5 Active estradioL (ESTRACE) 0.01% (0.1 mg/g) vaginal creamIndicatio ns:Vaginal atrophy Use at night twice weekly. 42.5 Gram 5 4 12/18/19 25 Discontin ued(Reord er) Active Problems Patient Care Coordination No te Formatting of this note migh t be different from the original. Primary Care: Serena Salazar MD Referring Provider: Lyly Horton MD [address] [facility] [address] [address] [place] [address] Other: Dr Kim Da Silva MD Problem Noted Date Diagnosed Date Breast fibroadenoma, left 12/15/2022 Lichen sclerosus et atrophicus of the vulva 07/29 Postmenopausal atrophic vaginitis 08/07/2012 Dyspareunia 08/07/2012 S/P total hysterectomy and B SO (bilateral salpingo-oophorectomy) 08/07/2012 Encounters Date Type Department Care Team Description 01/08/2025 External Device Data STL ABSTRACTION Provider, Abstract 12/19/[address] [facility] Clinical Support [id number] [address] Malini Nunez RN fax orders 12/18/2024 External Device Data STL ABSTRACTION Provider, Abstract 12/18/2024 Results Follow-Up [facility] RANGE EXAMINER [address] [address] Rose Prince NP VAGINOSIS/VAGINITIS PANEL BASIC 12/17/2024 11:00 AM CDT Office Visit [facility] [address] [address] Rose Prince NP Chronic vaginitis (Primary Dx); Vaginal atrophy; Pain of both breasts; Situational depression 12/17/2024 Patient Outreach [facility] [place] [id number] [place] [address] Clotilde Reynoso [facility] Care 12/17/[address] [facility] Clinical Support [address] [facility] [place] [id number] Shikha John, DAISY Question 11/29/[address] [facility] Clinical Support [address] [address] Pricila Pringle RN Vaginal Problem 11/13/2024 External Device Data STL ABSTRACTION Provider, Abstract from Last 3 Months Family History Medical History Relation Name Comments Stroke Brother Cancer Father Prostate Cancer Father Breast Cancer Maternal Aunt Cancer Maternal Aunt Ovarian Cancer Maternal Aunt Brain Cancer Mother Cancer Mother Breast Cancer Paternal Aunt x2 Cancer Paternal Aunt Colon Cancer Paternal Aunt Relation Name Status Comments Brother Daughter Alive Father Maternal Aunt Maternal Grandfather Maternal Grandmother Mother Paternal Aunt Paternal Grandfather Paternal Grandmother Son Alive Social History Tobacco Use Types Packs/Day Years Used Date Smoking Tobacco: Never Smokeless Tobacco: Never Tobacco Cessation:Counseling Given: Not Answered Alcohol Use Standard Drinks/Week Comments Yes 0 (1 standard drink = 0.6 oz pur e alcohol) occ Comments No Sex and Gender Information Value Date Recorded Sex Assigned at Not on file Legal Sex Female 10:54 AM TRANSLATOR Gender Identity Not on file Sexual Orientation Not on file Occupation Industry Job Start Date Job End Date Not on file Not on file Not on file Not on file Last Filed Vital Signs Vital Sign Reading Time Taken Comments Blood Pressure 134/86 12/17/2024 10:44 AM CDT Pulse 83 12/17/2024 10:44 AM CDT Temperature 36.3 C (97.4 F) 12/17/2024 10:44 AM CDT Respiratory Rate - - Oxygen Saturation 96% 12/17/2024 10:44 AM CDT Inhaled Oxygen Concentration - - Weight 86.2 kg (190 lb) 12/17/2024 10:44 AM CDT Height 177.8 cm (5' 10) 12/17/2024 10:44 AM CDT Body Mass Index 27.26 12/17/2024 10:44 AM CDT Plan of Treatment Upcoming Encounters Date Type Department Care Team (Late st Contact Info) Description 02/22/2025 10:45 AM CDT Office Visit [facility] RANGE EXAMINER - [facility] [place] [address] [address] Lyly Horton MD [address] [facility] [address] [place] [address] 06/28/2025 9:40 AM TRANSLATOR Appointment [facility] [address] [place] [address] [place] [address] [address] [place] [address] 06/28/2025 10:00 AM TRANSLATOR Office Visit [facility] - [address] [place] [address] [place] [address] [address] [place] [address] Health Maintenance Due Date Last Done Comments Pre-Diabetes and Diabetes Screening 1955 DTAP/TDAP/TD VACCINES (1 - Tdap) 1974 FIT-DNA Q 3 years 02/29/2000 FIT/FOBT Q 1 year 02/29/2000 Flex Sig/CT Colonography Q 5 years 02/29/2000 ZOSTER VACCINE (1 of 2) 2005 INFLUENZA VACCINE (#1) 2025 4, 04/04/2023, 09/22/2021 BREAST CANCER SCREENING 06/28/2025 06/28/19 25, 06/23/2023, 06/07/2022, Additional history exists OSTEOPOROSIS SCREENING 10/17/2028 4, 10/18/2023, 08/27/2021 COLORECTAL SCREENING 08/24/2029 08/24/2019, 07/07/2016, 07/07/2016, Additional history exists Colorectal Cancer Screening 08/24/2029 RSV VACCINE (60+ or ) (1 - 1-dose 75+ series) 2030 PNEUMOCOCCAL VACCINE 50+ YEARS Completed 04/04/2023 Procedures Procedure Name Priority Date/Time Associated Diagnosis Comments VAGINOSIS/VAGINITI S PANEL BASIC Routine 12/17/2024 3:12 PM CDT Chronic vaginitis MAMMO 3D DINA SCREEN BILAT W OR WO CAD Routine 06/28/2024 9:47 AM TRANSLATOR Breast pain, left Breast fibroadenoma, left Screening mammogram for breast cancer Dense breast tissue on mammogram, unspecified type XR DEXA BONE DENSITY AXIAL 1 OR MORE SITES Routine 08/27/2021 12:38 PM TRANSLATOR Post-menopausal Screening for osteoporosis from Last 3 Months or Most Recently Relevant to Health Maintenance Results * VAGINOSIS/VAGINITIS PANEL BASIC (12/17/2024 3:12 PM CDT) BACTERIAL VAGINOSIS NEGATIVE NEGATIVE [facility] [place] LACEY SPECIES NOT DETECTED NOT DETECTED [facility] [place] LACEY GLABRATA NOT DETECTED NOT DETECTED [facility] [place] Comment: Lacey species C. albicans, C. tropicalis, C. parapsilosis, and/or C. dubliniensis can be detected, but not differentiated, in the Lacey spp. result. TRICHOMONAS VAGINALIS (TV), TMA NOT DETECTED NOT DETECTED [facility] [place] Comment: Test Performed at: [email or web address] [address] [place] [address] Zuleyma Cavanaugh MD Genital SPECIMEN FROM VAGINA / Unknown 12/17/2024 3:12 PM CDT 12/18/2024 3:44 AM CDT us Rose Prince NP MICROBIOLOGY - GENERAL ORDERABL ES Final Result [facility] [phone] [facility] [address] [place] [address] * MAMMO 3D DINA SCREEN BILAT W OR WO CAD (06/28/2024 9:47 AM TRANSLATOR) Anatomical Region Laterality Modality Breast Bilateral Mammography 06/28/2024 9:47 AM TRANSLATOR Impressions 06/28/2024 6:46 PM TRANSLATOR IMPRESSION: No mammographic evidence of malignancy. RECOMMENDATIONS: Routine screening mammogram in one year. DICTATION LOCATION: [facility] Narrative 06/28/2024 6:46 PM TRANSLATOR MAMMO 3D DINA SCREEN BILAT W OR WO CAD DATE: 06/28/2024 9:47 AM HISTORY: Routine screening. TECHNIQUE: Full-field digital craniocaudal and mediolateral oblique projections of both breasts were obtained. Low-dose full-field digital breast tomosynthesis examination was performed with 3D acquisitions. Examination is read in conjunction with computer aided detection. COMPARISON: Prior mammograms dating back to 02/07/2018. BREAST COMPOSITION: There are scattered areas of fibroglandular density. FINDINGS: No suspicious mass, suspicious microcalcifications, or architectural distortion in either breast is identified. Since the prior study, there has been no significant interval change. The computer aided diagnosis detects no significant abnormality. OVERALL FINAL ASSESSMENT: BI-RADS CATEGORY 1 : Negative. Procedure Note Sofy Patterson MD - 06/28/2024 MAMMO 3D DINA SCREEN BILAT W OR WO CAD DATE: 06/28/2024 9:47 AM HISTORY: Routine screening. TECHNIQUE: Full-field digital craniocaudal and mediolateral oblique projections of both breasts were obtained. Low-dose full-field digital breast tomosynthesis examination was performed with 3D acquisitions. Examination is read in conjunction with computer aided detection. COMPARISON: Prior mammograms dating back to 02/07/2018. BREAST COMPOSITION: There are scattered areas of fibroglandular density. FINDINGS: No suspicious mass, suspicious microcalcifications, or architectural distortion in either breast is identified. Since the prior study, there has been no significant interval change. The computer aided diagnosis detects no significant abnormality. OVERALL FINAL ASSESSMENT: BI-RADS CATEGORY 1 : Negative. IMPRESSION: No mammographic evidence of malignancy. RECOMMENDATIONS: Routine screening mammogram in one year. DICTATION LOCATION: [facility] Ghazal [place] MAMMO ORDERABLES Final Result * XR DEXA BONE DENSITY AXIAL 1 OR MORE SITES (08/27/2021 12:38 PM TRANSLATOR) Anatomical Region Laterality Modality Digital Radiogra phy 08/27/2021 12:3 9 PM TRANSLATOR Impressions 08/27/2021 12:57 PM TRANSLATOR IMPRESSION: This is a summary page. Please refer to the complete detailed report found in the Imaging Section of the [facility] EMR, including absolute bone mineral density values. Osteopenic BMD. Comments: None. Statistical change: No prior exam is available. FRAX FRACTURE RISK ASSESSMENT: Risk factors: Personal history of fracture. 10 Year Probability Of Fracture Major Osteoporotic:14.6 % Hip:1.5 % Comparison population: [place], Race: A major osteoporotic fracture is defined as a fracture of the spine, forearm, hip or shoulder. Definitions: Normal: T-score above -1.0 Osteopenia T-score less than -1.0 and above -2.5 Osteoporosis: T-score <= -2.5 Follow-up Recommendations: Patients without high risk factors for osteoporosis T-score -1.0 to -1.5 - Consider repeat BMD in 5-10 years T-score -1.5 to - 2.0 - Consider repeat BMD in 3-5 years T-score -2.0 to - 2.5 - Consider repeat BMD every 2 years Patients on treatment for osteoporosis 1-2 years after initiation of treatment and every 2 years thereafter DICTATION LOCATION: Location 1 - [facility] 08/27/2021 12:57 PM TRANSLATOR EXAMINATION: BONE DENSITY STUDY (DXA) DATE: 08/27/2021 12:38 PM HISTORY: See Diagnosis Post-menopausal; Screening for osteoporosis PROCEDURE: Planar images of the lumbar spine and hip(s) using a [employer] DEXA scanner for bone mineral density determination (BMD). FINDINGS: Lumbar Spine (L1-L4): T-Score: -1.7 Left Femoral Neck: T-Score: -1.3 Right Femoral Neck: T-Score: -1.2 Procedure Note Vance Wasserman MD - 08/27/2021 EXAMINATION: BONE DENSITY STUDY (DXA) DATE: 08/27/2021 12:38 PM HISTORY: See Diagnosis Post-menopausal; Screening for osteoporosis PROCEDURE: Planar images of the lumbar spine and hip(s) using a [employer] DEXA scanner for bone mineral density determination (BMD). FINDINGS: Lumbar Spine (L1-L4): T-Score: -1.7 Left Femoral Neck: T-Score: -1.3 Right Femoral Neck: T-Score: -1.2 IMPRESSION: This is a summary page. Please refer to the complete detailed report found in the Imaging Section of the [facility] EMR, including absolute bone mineral density values. Osteopenic BMD. Comments: None. Statistical change: No prior exam is available. FRAX FRACTURE RISK ASSESSMENT: Risk factors: Personal history of fracture. 10 Year Probability Of Fracture Major Osteoporotic:14.6 % Hip:1.5 % Comparison population: [place], Race: A major osteoporotic fracture is defined as a fracture of the spine, forearm, hip or shoulder. Definitions: Normal: T-score above -1.0 Osteopenia T-score less than -1.0 and above -2.5 Osteoporosis: T-score <= -2.5 Follow-up Recommendations: Patients without high risk factors for osteoporosis T-score -1.0 to -1.5 - Consider repeat BMD in 5-10 years T-score -1.5 to - 2.0 - Consider repeat BMD in 3-5 years T-score -2.0 to - 2.5 - Consider repeat BMD every 2 years Patients on treatment for osteoporosis 1-2 years after initiation of treatment and every 2 years thereafter DICTATION LOCATION: Location 1 - [facility] Lyly Horton MD DIAGNOSTIC IMAGING [place] [place] Final Result from Last 3 Months or Most Recently Relevant to Health Maintenance Insurance [facility] Care Teams Medical Record Specialist Relationship Specialty Start Date End Date Serena Salazar MD [address] [place] [address] PCP - General Family Practice 08/07/12
--- OUTSIDE RECORDS SUMMARY | 2025-01-10 12:07 | XMS_ITS | Referral Summary ---
Author Organization [facility] Address [address] [place] [address] Care Team Providers Care Compliance Analyst Name Role Phone Helder Haas MD Primary Care Provider Rina Schmitz MD Unavailable [phone] Artemio Prince MD Unavailable [phone] Lyly Horton MD Unavailable Olu Braga NP Unavailable [phone] Encounters Date Type Department Care Team Description 12/03/2024 Telephone [facility] Accountable Care Organization [address] [place] [id number] Aline Dooley MA Successful Phone Call (Med adherence) 11/27/2024 Telephone [facility] Medical Group Primary Care at [address] [phone] Batool Fairchild MA Unsuccessful Phone Call 1 ([employer] med adh) 11/23/2024 Telephone [facility] Medical [facility] Primary Care at [address] [phone] Helder Haas MD Medication Request 10/28/2024 Results Follow-Up [facility] Medical [facility] Primary Care at [address] [phone] Helder Haas MD Comprehensive metabolic panel, Lipid panel, Thyroid Function [place], Additional followed-up results: 2 10/26/2024 Telephone [facility] Primary Care at [address] [phone] Helder Haas MD Test Results 10/26/2024 Telephone [facility] Primary Care at [address] [phone] Helder Haas MD Medical Question/Miscellaneou s 10/25/2024 11:37 AM CDT - 10/25/2024 11:59 PM CD[place] [address] Encounter for Medicare annual wellness exam Discharge Disposition: Discharge to home or self care 10/25/2024 11:45 AM CDT Lab [facility] Outpatient Lab at [address] [phone] Hypertension, essential (Primary Dx) 10/25/2024 Telephone [facility] Primary Care at [address] [phone] Wendy Rivas MA 10/24/2024 12:17 PM CDT - 10/24/2024 11:59 PM [place] [address] Hypertension, essential; Gastroesophageal reflux disease without esophagitis; Other irritable bowel syndrome; Hypercholesterolemia; Vitamin D deficiency Discharge Disposition: Discharge to home or self care 10/24/2024 12:30 PM CDT Lab [facility] Medical Group Outpatient Lab at [address] [phone] Hypertension, essential (Primary Dx) 10/24/2024 11:30 AM CDT Office Visit [facility] Primary Care at [address] [phone] Helder Haas MD Hypertension, essential (Primary Dx); Mixed hyperlipidemia; Gastroesophageal reflux disease with esophagitis, unspecified whether hemorrhage; Vitamin D deficiency; Need for hepatitis B screening test from Last 3 Months Allergies Active Allergy Reactions Criticality Noted Date Comments Penicillin Hives Medium 09/14/2017 Penicillins Hives High 12/23/2008 Sulfa (Sulfonamide Antibiotics) Hives High 07/28 Medications estradiol (ESTRACE) 1 mg tablet TK 1 T PO D 3 018 Active flaxseed oil 1,000 mg capsule Act alexys fish,bora,flax oils-om3,6,9no1 1,200 mg capsule Act alexys acetaminophen (TYLENOL) 325 mg tablet Active ascorbic acid (VITAMIN C) 500 mg tablet,chewable Acti ve melatonin 1 mg/4 mL drops Active clobetasoL (TEMOVATE) 0.05 % ointment Apply thin layer to affected area twice daily for 1 month then once daily x2 months then twice weekly x3 months. Active Lactobac 40-Bifido 3-S.thermop (Probiotic) 100 billion cell capsule daily Active albuterol HFA (PROVENTIL HFA,VENTOLIN HFA,PROAIR HFA) 90 mcg/actuation inhaler INHALE 2 PUFFS BY MOUTH EVERY 6 HOURS NEEDED FOR WHEEZING 18 g 1 022 Active FLUoxetine (PROzac) 40 mg capsule Take 1 capsule (40 mg total) by mouth daily 90 capsule 3 024 Active calcium carbonate-vitamin D3 (CALTRATE 600 + D) 1500 mg (600 mg elemental) -400 units per tablet Take 2 tablets by mouth daily 600mg daily of calcium 180 tablet 3 024 2024 Active ketoconazole (NIZORAL) 2 % cream APPLY TOPICALLY TO AFFECTED AREAS OF FACE EVERY DAY UNTIL CLEAR. THEN USE NEEDED FOR FLARES. USE IN ROTATION WITH TACROLIMUS Active tacrolimus (PROTOPIC) 0.1 % ointment APPLY TO THE AFFECTED AREAS OF THE FACE ONCE NIGHTLY UNTIL CLEAR. THEN USE NEEDED FOR FLARES THEREAFTER. USE IN ROTATION WITH KETOCONAZOLE. 024 Active cyclobenzaprine (FLEXERIL) 10 mg tablet Take 1 tablet (10 mg total) by mouth nightly for muscle spasms 025 Active rimegepant (NURTEC ODT) tablet,disintegra tingIndications:M igraine Take 1 tablet (75 mg total) by mouth daily as needed (migraine) 8 tablet Active omeprazole (PriLOSEC) 20 mg capsule Take 2 capsules (40 mg total) by mouth daily 60 capsule 11 025 2025 Active ergocalciferol (VITAMIN D) 50,000 unit capsule TAKE 1 CAPSULE BY MOUTH 1 TIME A WEEK 12 capsule 1 Active losartan (COZAAR) 50 mg tablet TAKE 1 TABLET(50 MG) BY MOUTH TWICE DAILY 100 tablet [address] (VOLTAREN) 75 mg EC tablet Take 1 tablet (75 mg total) by mouth 2 (two) times a day Active predniSONE (DELTASONE) 10 mg tablet Active tretinoin (RETIN-A) 0.025 % cream APPLY A PEA SIZED AMOUNT TOPICALLY TO ENTIRE FACE EVERY NIGHT AT BEDTIME AFTER CLEANSING. LAYER WITH MOISTURIZER NEEDED Active desipramine (NOPRAMIN) 10 mg tabletIndications :Other irritable bowel syndrome Take 2 tablets (20 mg total) by mouth nightly 200 tablet 1 025 Active atorvastatin (LIPITOR) 20 mg tabletIndications :Mixed hyperlipidemia Take 1 tablet (20 mg total) by mouth daily Take 1 tablet by mouth at bedtime 90 tablet 3 025 Active hydroCHLOROthiazi de (HYDRODIURIL) 25 mg tablet TAKE 1 TABLET(25 MG) BY MOUTH DAILY 90 tablet 1 025 Active amLODIPine (NORVASC) 5 mg tabletIndications :Hypertension, essential TAKE 1 TABLET(5 MG) BY MOUTH DAILY 90 tablet 3 025 Active ALPRAZolam (XANAX) 0.5 mg tablet TAKE 1 TABLET(0.5 MG) BY MOUTH TWICE DAILY NEEDED FOR ANXIETY 30 tablet 025 Active ALPRAZolam (XANAX) 0.5 mg tablet TAKE 1 TABLET(0.5 MG) BY MOUTH TWICE DAILY NEEDED FOR ANXIETY 30 tablet 025 2024 Discontinued Active Problems Problem Noted Date Diagnosed Date Acute non-recurrent frontal sinusitis 03/05/2024 Assessment & Plan (03/05/2024 12:34 PM CDT): 1. Can continue dayquil/nyquil 2. doxycyline 3. Nasal saline rinses as needed for congestion. 4. Follow-up in 5-7 days - if symptoms worsen or persist Family history of colon cancer 10/28/2023 Mood disorder 10/04/2023 Chronic, continuous use of opioids 04/11/2023 Breast fibroadenoma, left 12/15/2022 Martinez's neuroma of right foot 09/30/2022 Other irritable bowel syndrome 09/06/2022 Assessment & Plan (09/06/2022 10:10 PM CDT): Aim for fiber intake 20-25 grams per day Peppermint oil supplement may be helpful as well Increasing desipramine to 20 mg qhs again Chronic migraine without aur a without status migrainosus, not intractable 03/27/2022 [facility] Umbilical hernia without obstruction and without gangrene 10/30/2021 Hypercholesterolemia 09/23/2021 Assessment & Plan (10/23/2021 12:43 PM CDT): Continuing statin therapy Hypertension, essential 09/23/2021 Assessment & Plan (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 Hydrochlorothiazide cut down to 12.5 mg daily Losartan cut down to 25 mg daily Monitor BP Follow up in 6 weeks Assessment & Plan (12/30/2022 3:09 PM CDT): BP's are running 140's systolic. Patient does have increased anxiety. She notes that her potassium was noted to be low in the hospital and I see that on the cardiology consult note but need the whole report to see what d/c potassium was. Records requested. Will check a BMP today and increase the HCTZ to 25 mg. May need K supplement on board. Home BP log and bring to follow up. Hypotension education provided. Assessment & Plan (10/23/2021 12:43 PM CDT): Start HCTZ at bedtime, continue losartan as currently dosed Awaiting labs Assessment & Plan (09/23/2021 9:27 PM CDT): Monitoring BP at home; I'll want to see numbers over the week Check 1-2 times a day; call if higher than 150/90 (even if this afternoon). At the most, you may recheck in 15-20 minutes after a high reading to confirm. If symptoms (headache, chest pain, shortness of breath) may need to go back to ER. Continue heart-healthy diet Will consider adding amlodipine; will continue losartan, hydrochlorothiazide. Continue Lipitor I will order a new lipid panel today Will try to get lab results from [facility] Lichen sclerosus et atrophicus of the vulva 07/29 Basal cell carcinoma of skin of right eyelid, including canthus 01/27/2018 Overview (01/27/2018): Added automatically from request for surgery [id number] Basal cell carcinoma (BCC) of skin of nose 05/27 Dyspareunia 08/07/2012 Postmenopausal atrophic vaginitis 08/07/2012 S/P total hysterectomy and B SO (bilateral salpingo-oophorectomy) 07/05/2011 Osteoporosis screening 12/23/2008 Overview (02/27/2021): Overview: 2006 Encounter for Medicare annual wellness exam 11/26 Overview (02/27/2021): Overview: 2006 Assessment & Plan (04/26/2024 10:59 AM CDT): A(n) yearly Medicare Annual Wellness Visit has been performed today. Katina Krause is not up to date on screening tests. She is in need of Cholesterol screening and Hepatitis B. She is not up to date on needed preventative vaccinations; She is in need of Influenza and Zoster. We discussed healthy lifestyle habits, educational material has been given. Medications reviewed, changes documented as per the medical record and discussed with patient along with risks vs benefits. Specific topics reviewed: drugs, ETOH, and tobacco, importance of regular dental care, importance of regular exercise, importance of varied diet, limit TV, media violence, minimize junk food, and seat belts. Return in 6 months Assessment & Plan (04/04/2023 10:28 AM CDT): A(n) yearly Medicare Annual Wellness Visit has been performed today. Katina Krause is not up to date on screening tests. She is in need of Colon cancer screening. She is not up to date on needed preventative vaccinations; She is in need of Covid- 19 (booster). We discussed healthy lifestyle habits, educational material has been given. Medications reviewed, changes documented as per the medical record and discussed with patient along with risks vs benefits. Monitor BP through the week, 1-2 times a day, and report to me by end of week If sustained over 140/90, I will have to adjust Stay hydrated, rest Discussed alprazolam PRN dosing, need to avoid missing dosages. Advised refraining from alcohol intake Return in 6 months Assessment & Plan (09/23/2021 9:29 PM CDT): A initial well visit to establish care has been performed today. Katina Krause is not up to date on screening tests. She is in need of Hepatitis C and Cholesterol screening- these have been ordered. She is not up to date on needed preventative vaccinations; She is in need of Influenza and Covid-19 (booster). These have been ordered/arranged unless otherwise indicated. Other screening mammogram 12/23/2008 Overview (02/27/2021): Overview: 11/30/07 WN Screening for cervical cancer 12/23/2008 Overview (02/27/2021): Overview: 01/25/08 WNL Immunizations Immunization Administration Dates Next Due Influenza, Quadrivalent, Hig h Dose, Preservative Free, Intrr 04/04/2023,09/22/2021 Influenza, Trivalent, High D ose, Split, Preservative Free, Intramuscular 04/26/2024 Influenza, Unspecified 01/27/2023(Deferr ed: Patient Refused),06/27/2022(Deferred: Patient Refused),05/18/2022(Deferred: Patient Refused),06/27/2021(Deferred: Patient Refused),06/27/2020(Deferred: Patient Refused) Pneumococcal Conjugate Pcv20 04/04/2023 Social History Tobacco Use Types Packs/Day Years Used Date Smoking Tobacco: Never Passive Smoke Exposure: Never Smokeless Tobacco: Never Alcohol Use Standard Drinks/Week Comments Yes 2 (1 standard drink = 0.6 oz pur e alcohol) AUDIT-C Answer Date Recorded Q1: How often do you have a drink containing alcohol? Never 05/17/2023 Q2: How many drinks containi ng alcohol do you have on a typical day when you are drinking? Patient does not drink Q3: How often do you have si x or more drinks on one occasion? Never 05/17/2023 PHQ-2 Answer Date Recorded PHQ-2 Total Score (If total score is 3 or more points, staff should administer the PHQ-9) 0 10/24/2024 Exercise Vital Sign Answer Date Recorde d On average, how many days pe r week do you engage in moderate to strenuous exercise (like a brisk walk)? 3 days 09/22/2021 On average, how many minutes do you engage in exercise at this level? 60 min 09/22/2021 Housing Stability Vital Sign Answer Herrera e Recorded Unable to Pay for Housing in the Last Year Not o n file 09/22/2021 Number of Places Lived in the Last Year Not on f ile 09/22/2021 In the last 12 months, was t here a time when you did not have a steady place to sleep or slept in a usp (including now)? No 09/22/2021 Education Answer Date Recorded What is the highest level of school you have completed or the highest degree you have received? 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 Not on file Not on file Last Filed Vital Signs Vital Sign Reading Time Taken Comments Blood Pressure 140/80 10/24/2024 11:38 AM CDT Pulse 87 10/24/2024 11:38 AM CDT Temperature 36.2 C (97.1 F) 10/24/2024 11:38 AM CDT Respiratory Rate 16 10/24/2024 11:38 AM CDT Oxygen Saturation 98% 10/24/2024 11:38 AM CDT Inhaled Oxygen Concentration - - Weight 87.1 kg (192 lb) 10/24/2024 11:38 AM CDT Height 175.3 cm (5' 9) 10/24/2024 11:38 AM CDT Body Mass Index 28.35 10/24/2024 11:38 AM CDT Plan of Treatment Not on file Procedures Procedure Name Priority Date/Time Associated Diagnosis Comments DIFFERENTIAL AUTO Routine 10/25/2024 11: 37 AM CDT Encounter for Medicare annual wellness exam CBC WITH AUTO DIFFERENTIAL Routine 10/25/2024 11:37 AM CDT Encounter for Medicare annual wellness exam EGFR Routine 10/24/2024 12:17 PM CDT Hypertension, essential Other irritable bowel syndrome VITAMIN D 25 HYDROXY Routine 10/24/2024 12:17 PM CDT Vitamin D deficiency THYROID FUNCTION CASCADE Routine 10/24/2024 12:17 PM CDT Hypertension, essential LIPID PANEL Routine 10/24/2024 12:17 PM CDT Hypercholesterole [place] COMPREHENSIVE METABOLIC PANEL Routine 10/24/2024 12:17 PM CDT Hypertension, essential Other irritable bowel syndrome HM COLONOSCOPY Routine 11/15/2023 DEXA AXIAL SKELETON BONE DENSITY 1 OR MORE SITES Schedule Routine, Read Routine (OP Routine) 10/18/2023 8:21 AM CDT Screening for osteoporosis Asymptomatic menopausal state DIAGNOSTIC MAMMOGRAM W SAUD Schedule Routine, Read Routine (OP Routine) 06/23/2023 HEPATITIS C ANTIBODY Routine 10/21/2021 1:55 PM CDT Encounter for hepatitis C screening test for low risk patient from Last 3 Months or Most Recently Relevant to Health Maintenance Results * Differential, auto (10/25/2024 11:37 AM CDT) Neutrophil abs 2.94 1.50 - 6.50 K/cumm Imm gran abs 0.02 0.00 - 0.10 K/cumm [facility] Lymphocyte abs 1.69 0.80 - 3.30 K/cumm [facility] Monocyte abs 0.37 0.20 - 0.80 K/cumm [facility] Eosinophil abs 0.07 0.00 - 0.50 K/cumm [facility] Basophil abs 0.03 0.00 - 0.10 K/cumm [facility] Neutrophil pct 57.4 % [facility] Comment: Interpretive Data Percent cell count reference ranges are not reported, since discordance with absolute values may lead to misinterpretation of CBC data. Current Interpretive Data was last revised on 2017. Imm gran pct 0.4 % [facility] Comment: Interpretive Data Percent cell count reference ranges are not reported, since discordance with absolute values may lead to misinterpretation of CBC data. Current Interpretive Data was last revised on 2017. Lymphocyte pct 33.0 % [facility] Comment: Interpretive Data Percent cell count reference ranges are not reported, since discordance with absolute values may lead to misinterpretation of CBC data. Current Interpretive Data was last revised on 2017. Monocyte pct 7.2 % [facility] Comment: Interpretive Data Percent cell count reference ranges are not reported, since discordance with absolute values may lead to misinterpretation of CBC data. Current Interpretive Data was last revised on 2017. Eosinophil pct 1.4 % [facility] Comment: Interpretive Data Percent cell count reference ranges are not reported, since discordance with absolute values may lead to misinterpretation of CBC data. Current Interpretive Data was last revised on 2017. Basophil pct 0.6 % [facility] Comment: Interpretive Data Percent cell count reference ranges are not reported, since discordance with absolute values may lead to misinterpretation of CBC data. Current Interpretive Data was last revised on 2017. Blood 10/25/2024 11:3 7 AM CDT 10/25/2024 9:15 PM CDT us Helder Haas MD LAB BLOOD ORDERABLES Final Result Performing Organization Address City/[facility] Co de Phone Number ROSANNA YIN [address] [address] Department of Laboratories [place], [place] [phone] * (ABNORMAL) CBC with auto differential (10/25/2024 11:37 AM CDT) Pathologist [facility] WBC 5.12 3.80 - 9.90 K/cumm Hgb 13.1 11.9 - 15.5 g/dL [facility] Hct 41.0 35.6 - 45.5 % [facility] Plt 281 150 - 400 K/cumm [facility] MPV 9.7 9.1 - 12.3 fL [facility] RBC 4.36 3.90 - 5.20 M/cumm [facility] MCV 94.0 81.3 - 96.4 fL [facility] MCH 30.0 27.1 - 33.3 pg [facility] MCHC 32.0(L) 32.3 - 35.7 g/dL [facility] RDW CV 13.6 11.1 - 14.9 % [facility] RDW SD 47.4 35.7 - 48.1 fL [facility] NRBC abs 0.00 0.00 - 0.01 K/cumm [facility] Blood 10/25/2024 11:3 7 AM CDT 10/25/2024 9:15 PM CDT Helder Haas MD LAB BLOOD ORDERABLES Final Result Performing Organization Address [facility] Co de Phone Number ROSANNA YIN [phone] [address] Department [place] [address] * eGFR (10/24/2024 12:17 PM CDT) Pathologist [facility] eGFR 85 >=60 mL/min/1. 73 m2 Comment: Interpretive Data Reference Interval Normal >/= 90 mL/min/1.73m2 Mildly decreased* 60 - 89 mL/min/1.73m2 Mildly to moderately decreased 45 - 59 mL/min/1.73m2 Moderately to severely decreased 30 - 44 mL/min/1.73m2 Severely decreased 15 - 29 mL/min/1.73m2 Kidney Failure < 15 mL/min/1.73m2 *Relative to young adult level Estimated glomerular filtration rate is determined by the 2020 CKD-EPI equation recommended by the National Kidney Foundation (A Unifying Approach to GFR Estimation: Recommendations of the NKF-ASK Task Force on Reassessing the Inclusion of Race in Diagnosing Kidney Disease, JASN 2020). The CKD-EPI equation should not be used for patients with unstable renal function and has not been validated in children and those over 70. Current interpretive data was last reviewed 2021. Blood 10/24/2024 12:1 7 PM CDT 10/24/2024 7:38 PM CDT Helder Haas MD LAB BLOOD ORDERABLES Final Result Performing Organization Address [facility] Co de Phone Number ROSANNA YIN [phone] [address] [facility] [employer] [place], [place] [phone] * Thyroid Function [place] (10/24/2024 12:17 PM CDT) TSH 1.30 0.30 - 4.20 mcIUnit/mL Blood 10/24/2024 12:1 7 PM CDT 10/24/2024 7:33 PM CDT Helder aHas MD LAB BLOOD ORDERABLES Final Result Performing Organization Address [facility] Co de Phone Number ROSANNA HUMPHREY [phone] [address] [place] [address] * Vitamin D 25 hydroxy (10/24/2024 12:17 PM CDT) Vitamin D 25-OH 58 30 - 80 ng/mL Blood 10/24/2024 12:1 7 PM CDT 10/24/2024 7:33 PM CDT Helder Haas MD LAB BLOOD ORDERABLES Final Result Performing Organization Address [facility] Co de Phone Number ROSANNA HUMPHREY [phone] [address] [place] [address] * (ABNORMAL) Lipid panel (10/24/2024 12:17 PM CDT) Cholesterol 235(H) 30 - 199 mg/dL Comment: Interpretive Data Ages < or = 19 years Acceptable: <170 mg/dL Borderline high: 170-199 mg/dL High: >or= 200 mg/dL Ages > or = 20 years Desirable: <200 mg/dL Borderline high: 200-239 mg/dL High: >or= 240 mg/dL Literature References: 1. Expert Panel on Integrated Guidelines for Cardiovascular Health and Risk Reduction in Children and Adolescents. Pediatrics 2011;128:S213 2. NCEP Expert Panel. Circulation 2004;110:227 Current Interpretive Data was last revised on 2018. Triglycerides 178(H) <=149 mg/dL ROSANNA YIN Comment: Interpretive Data Ages < or = 9 years Acceptable: <75 mg/dL Borderline high: 75-99 mg/dL High: >or= 100 mg/dL Ages 10 to 20 years Acceptable: <90 mg/dL Borderline high: 90-129 mg/dL High: >or= 130 mg/dL Ages > or = 20 years Desirable: <150 mg/dL Borderline high: 150-199 mg/dL High: 200-499 mg/dL Very high: >or= 499 mg/dL Literature References: 1. Expert Panel on Integrated Guidelines for Cardiovascular Health and Risk Reduction in Children and Adolescents. Pediatrics 2011;128:S213 2. NCEP Expert Panel. Circulation 2004;110:227 Current Interpretive Data was last revised on 2018. HDL 72 >=40 mg/dL ROSANNA YIN Comment: Interpretive Data Ages < or = 19 years Acceptable: >45 mg/dL Borderline low: 40-45 mg/dL Low: <40 mg/dL Ages > or = 20 years Desirable: >or= 60 mg/dL Low: <40 mg/dL Literature References: 1. Expert Panel on Integrated Guidelines for Cardiovascular Health and Risk Reduction in Children and Adolescents. Pediatrics 2011;128:S213 2. NCEP Expert Panel. Circulation 2004;110:227 Current Interpretive Data was last revised on 2018. LDL, calculated 132(H) <=129 mg/dL ROSANNA YIN Comment: Interpretive Data Ages < or = 19 years Acceptable: <110 mg/dL Borderline high: 110-129 mg/dL High: >or= 130 mg/dL Ages > or = 20 years Optimal: <100 mg/dL Near optimal: 100-129 mg/dL Borderline high: 130-159 mg/dL High: >160 mg/dL Calculated using the Khalif LDL-C estimating equation. This equation was implemented on 2024. Prior to this date LDL-C was estimated using the Friedewald equation. Literature References: 1. Expert Panel on Integrated Guidelines for Cardiovascular Health and Risk Reduction in Children and Adolescents. Pediatrics 2011;128:S213 2. NCEP Expert Panel. Circulation 2004;110:227 3. Khalif M et al. SHAVONNE Cardiol. 2020 October 25;5(5):540-548. doi: 10.1001/[email or web address].2020.0013 Current Interpretive Data was last revised on 2024. Non-HDL Cholesterol 163 mg/dL ROSANNA YIN Comment: Interpretive Data Ages < or = 19 years Acceptable: <120 mg/dL Borderline high: 120-144 mg/dL High: >145 mg/dL Ages > or = 20 years When triglycerides are >200 mg/dL, Non-HDL cholesterol is a secondary target of therapy with treatment goals that are 30 mg/dL greater than the LDL cholesterol target. Literature References: 1. Expert Panel on Integrated Guidelines for Cardiovascular Health and Risk Reduction in Children and Adolescents. Pediatrics 2011;128:S213 2. NCEP Expert Panel. Circulation 2004;110:227 Current Interpretive Data was last revised on 2018. Chol/HDL ratio 3 ROSANNA YIN Blood 10/24/2024 12:1 7 PM CDT 10/24/2024 7:33 PM CDT us Helder Haas MD LAB BLOOD ORDERABLES Final Result ROSANNA YIN [phone] [address] Department [place] [address] * Comprehensive metabolic panel (10/24/2024 12:17 PM CDT) Sodium 136 135 - 145 mmol/L Potassium, pl 4.1 3.3 - 4.9 mmol/L [facility] Chloride 97 97 - 110 mmol/L [facility] CO2 25 22 - 32 mmol/L [facility] Anion gap 14 2 - 15 mmol/L [facility] BUN 16 6 - 25 mg/dL [facility] Creatinine 0.76 0.60 - 1.10 mg/dL [facility] Glucose 93 70 - 199 mg/dL [facility] Comment: Interpretive Data Fasting glucose >/= 126 mg/dl is diagnostic for diabetes. Fasting is defined as no caloric intake for at least 8 hours. Fasting glucose between 100 mg/dl to 125 mg/dl is diagnostic of prediabetes. In a patient with classic symptoms of hyperglycemia or hyperglycemic crisis, a random glucose >/= 200 mg/dl is diagnostic for diabetes. In the absence of unequivocal hyperglycemia, results should be confirmed by repeat testing. The classification and Diagnosis of Diabetes Diabetes Care 2021; 46: S19-S40. Current interpretive data was last revised 2022. Calcium 9.7 8.5 - 10.3 mg/dL [facility] Bilirubin, total 0.3 0.1 - 1.2 mg/dL [facility] Protein, pl 7.3 6.5 - 8.5 g/dL [facility] Albumin 4.4 3.5 - 5.0 g/dL [facility] Alk phos 108 40 - 130 Units/L [facility] ALT 30 7 - 45 Units/L [facility] AST 39 10 - 45 Units/L [facility] Blood 10/24/2024 12:1 7 PM CDT 10/24/2024 7:33 PM CDT Helder Haas MD LAB BLOOD ORDERABLES Final Result ROSANNA [id number] [address] Department [place] [address] * HM COLONOSCOPY (11/15/2023) Historical Provider HEALTH MAINTENANCE Final Result * Dexa Axial Skeleton Bone Density 1 Or 2 Site (10/18/2023 8:21 AM CDT) Anatomical Region Laterality Modality Body N/A Other 10/18/2023 6:41 PM CDT Narrative 10/18/2023 6:42 PM CDT EXAM DESCRIPTION: DEXA AXIAL SKELETON BONE DENSITY 1 OR MORE SITES REASON FOR STUDY: 68 y/o year old F with given history of: screen osteoporosis Postmenopausal. Transmission Worker/Model: [employer] Discovery SL ([id number]) CLINICAL INFORMATION: Current height: 70 inches Maximum height: 70 inches Weight: 191 pounds Risk factors: Postmenopausal, cancer, inflammatory bowel disease COMPARISON: None available FINDINGS: AP LUMBAR SPINE L1-L4: Total BMD is 0.825 g/cm2 T-score is -2.0 LEFT HIP: Total BMD is 0.896 g/cm2 T-score is -0.4 Femoral neck BMD is 0.703 g/cm2 T-score is -1.3 FRAX: 10 year risk for a major osteoporotic fracture is 9.2 %, 10 year risk for a hip fracture is 1.0 % IMPRESSION: Low Bone Mass. REFERENCE: Bone mineral density: T-Score: Normal (T-score above or = -1.0) Low bone mass (T-score between -1.0 and -2.5) replaces the previously used term osteopenia Osteoporosis (T-score = or below -2.5) Z-Score: Within the expected range for age (Z-score above -2.0) Below the expected range for age (Z-score is -2.0 or below) Please see below follow up recommendations. Medical evaluation for secondary causes of low bone mineral density may be appropriate. FRAX is a World Health Organization validated fracture risk assessment tool that calculates a person's 10 year probability of a major osteoporosis related fracture and hip fracture. According to the National Osteoporosis Foundation guidelines, postmenopausal women and men age 50 or older with low bone mass and a 10 year probability of a major osteoporosis related fracture = or greater than 20% or a 10 year probability of a hip fracture = or greater than 3% should be considered for pharmacological treatment for the prevention of osteoporosis. For further information, including treatment recommendations, please refer to the 2019 ISCD Official Positions (http://www.iscd.org) and the NOF's Clinician's Guide to Prevention and Treatment of Osteoporosis (http://www.nof.org/professionals/clinical-guidelines) THIS IS AN ELECTRONICALLY VERIFIED FINAL REPORT 10/18/2023 6:42 PM - Electronically signed by Vance Bui M.D. MF: [email or web address] Report ID: [id number] Reading Location: [address] Note Vance Bui MD - 10/18/2023 EXAM DESCRIPTION: DEXA AXIAL SKELETON BONE DENSITY 1 OR MORE SITES REASON FOR STUDY: 68 y/o year old F with given history of: screen osteoporosis Postmenopausal. Transmission Worker/Model: [employer] (S/N [id number]) CLINICAL INFORMATION: Current height: 70 inches Maximum height: 70 inches Weight: 191 pounds Risk factors: Postmenopausal, cancer, inflammatory bowel disease COMPARISON: None available FINDINGS: AP LUMBAR SPINE L1-L4: Total BMD is 0.825 g/cm2 T-score is -2.0 LEFT HIP: Total BMD is 0.896 g/cm2 T-score is -0.4 Femoral neck BMD is 0.703 g/cm2 T-score is -1.3 FRAX: 10 year risk for a major osteoporotic fracture is 9.2 %, 10 year risk fora hip fracture is 1.0 % IMPRESSION: Low Bone Mass. REFERENCE: Bone mineral density: T-Score: Normal (T-score above or = -1.0) Low bone mass (T-score between -1.0 and -2.5) replaces thepreviously used term osteopenia Osteoporosis (T-score = or below -2.5) Z-Score: Within the expected range for age (Z-score above -2.0) Below the expected range for age (Z-score is -2.0 or below) Please see below follow up recommendations. Medical evaluation forsecondary causes of low bone mineral density may be appropriate. FRAX is a World Health Organization validated fracture risk assessmenttool that calculates a person's 10 year probability of a major osteoporosisrelated fracture and hip fracture. According to the National OsteoporosisFoundation guidelines, postmenopausal women and men age 50 or older with low bonemass and a 10 year probability of a major osteoporosis related fracture = or greater than 20% or a 10 year probability of a hip fracture = or greaterthan 3% should be considered for pharmacological treatment for the preventionof osteoporosis. For further information, including treatment recommendations, please referto the 2019 ISCD Official Positions (http://www.iscd.org) and the NOF's Clinician's Guide to Prevention and Treatment of Osteoporosis (http://www.nof.org/professionals/clinical-guidelines) THIS IS AN ELECTRONICALLY VERIFIED FINAL REPORT 10/18/2023 6:42 PM - Electronically signed by Vance Bui M.D. MF: [email or web address] Report ID: [id number] Reading Location: [place] [address] Helder Haas MD IMG DXA PROCEDURES Final Re sult * Diagnostic Mammogram W Saud (06/23/2023) Anatomical Region Laterality Modality Breast Mammography Historical Provider IMG MAMMO PROCEDURES Ruchi l Result * Hepatitis C antibody (10/21/2021 1:55 PM CDT) Hep C Ab Nonreactive Nonreactive ROS[facility]NA YIN Comment: Interpretive Data Nonreactive: Antibodies to HCV not detected. Does NOT exclude the possibility of recent exposure to HCV. Equivocal: Equivocal for HCV antibodies. Supplemental molecular testing will be automatically performed to determine infection status in accordance with current CDC screening recommendations. Reactive: Positive for HCV antibodies. This may represent current or past HCV infection. Supplemental molecular testing will be automatically performed to determine current infection status in accordance with current CDC screening recommendations. Interpretive data was last revised on 2019. Blood 10/21/2021 1:55 PM CDT 10/21/2021 6:30 PM CDT Helder Haas MD LAB MICROBIOLOGY - GENERAL ORDERABLES Final Result ROSANNA YIN [address] Department [place] [address] from Last 3 Months or Most Recently Relevant to Health Maintenance Insurance [facility] MEDICARE [facility] [employer] MEDICARE GOLD Advance Directives For more information, please contact: [phone] * Full Code (Latest Code Status on File) Date Activated Date Inactivated Comments 01/27/2018 1:59 PM 01/27/2018 4:00 PM Care Teams Compliance Analyst Relationship Specialty Start Date End Date Helder Haas MD [address] [place] [address] PCP - General Family Medicine 09/22/21 Rina Schmitz MD [address] [place] [address] Consulting Physician Dermatology 09/22/21 Artemio Prince MD [address] [place] [address] Referring Physician Gastroenterology 09/22/21 Lyly Horton MD [address] [facility] [address] [place] [address] Obstetrics and Gynecology 09/22/21 Olu Braga NP [address] [place] [address] [address] [place] [address] Nurse Practitioner 05/18/22 Akiko Chester Psychologist 09/22/21
--- OUTSIDE RECORDS SUMMARY | 2025-01-10 12:07 | XMS_ITS | Patient Health Record ---
Author Organization [facility] [employer] [facility] Address [address] [place] [address] Care Team Providers Care Telehealth Nurse Educator Name Role Phone Olu Braga Unavailable [phone] Reason For Referral No Information Medications Medication SIG (Take, Route, Frequency, Duration) Notes Start Date End Date Status FLUoxetine HCl 20 MG Oral 05/26/2022 Active ALPRAZolam 0.5 MG Oral 05/26/2022 A ctive Fluconazole 150 MG Oral 05/26/2022 Active Pantoprazole Sodium 20 MG Oral 05/26/2022 Active Ergocalciferol 1.25 MG (88889 UT) Oral 05/26/2022 Active ProAir HFA 108 (90 Base) MCG/ACT Inhalation 05/26/2022 Active Losartan Potassium 50 MG Oral 05/26/2022 Active Tretinoin 0.025 % External 05/26/2022 A ctive Desipramine HCl 10 mg Oral 05/26/2022 Active hydroCHLOROthiazide 12.5 MG Oral 05/26/2022 Active traMADol HCl 50 MG Oral 05/26/2022 Active Trintellix 10 MG Oral 05/26/2022 Ac tive Trintellix 5 MG Oral 05/26/2022 Act alexys Pantoprazole Sodium 40 MG Oral 05/26/2022 Active Estradiol 0.01 % (0.1 mg/gram) Vaginal *Pick strength-form from [employer] for eRX* 05/26/2022 Active Atorvastatin Calcium 10 MG Oral 05/26/2022 Active Cyclobenzaprine HCl 10 MG Oral 05/26/2022 Active Plan Of Treatment No Information Insurance Providers Payer Name Payer Address Payer Phone Subscriber Number Group Number Insured Name Patient Relationship to Insured Coverage Start Date Coverage End Date Medicare-I l Medicare [address] [place] [address] [id number] CODY RONQUILLO Self - patient is the insured Bcbs-Dc Ppo [address] [place] [address] [id number] CODY Self - patient is the insured Medical (General) History Surgical History Surgery Date(Month/Year) Hysterectomy/revise vagina (00456)
--- OUTSIDE RECORDS SUMMARY | 2025-01-10 12:07 | XMS_ITS | Encounter Summary ---
Author Organization [facility] Address [address] [place] [address] Care Team Providers Care [employer] Supervisor Name Role Phone Serena Salazar MD Primary Care Provider [phone] Encounter Details Date Type Department Care Team (Late st Contact Info) Description 12/18/2024 Results Follow-Up [facility] PSYCHOLOGICAL ASSISTANT - Medical [place] [address] [facility] [address] [address] Rose Prince NP [address] [place] [address] VAGINOSIS/VAGINITIS PANEL BASIC Social History Tobacco Use Types Packs/Day Years Used Date Smoking Tobacco: Never Smokeless Tobacco: Never Alcohol Use Standard Drinks/Week Comments Yes 0 (1 standard drink = 0.6 oz pur e alcohol) occ Comments No Sex and Gender Information Value Date Recorded Sex Assigned at Not on file Legal Sex Female 10:54 AM ROLLER Gender Identity Not on file Sexual Orientation Not on file Occupation Industry Job Start Date Job End Date Not on file Not on file Not on file Not on file documented as of this encounter Plan of Treatment Upcoming Encounters Date Type Department Care Team (Late st Contact Info) Description 02/22/2025 10:45 AM CDT Office Visit [facility] PSYCHOLOGICAL ASSISTANT - Medical [place] [address] [address] Lyly Horton MD [address] [place] [address] 06/28/2025 9:40 AM ROLLER Appointment [facility] [address] [place] [address] [place] [address] [place] [address] 06/28/2025 10:00 AM ROLLER Office Visit [facility] Breast Surgery [facility] - [address] [place] [address] [place] [address] [place] [address] documented as of this encounter Visit Diagnoses Not on filedocumented in this encounter Additional Health Concerns Assessment Noted Time PHQ-9 Depression Total Score: 3 12/18/19 25 10:37 AM CDT documented as of this encounter Care Teams [employer] Supervisor Relationship Specialty Start Date End Date Serena Salazar MD [address] [place] [address] PCP - General Family Practice 08/07/12 documented as of this encounter
--- OUTSIDE RECORDS SUMMARY | 2025-01-10 12:07 | XMS_ITS | Clinical Summary ---
Author Organization [facility] Address [address] [place] [address] Care Team Providers Care Accounting Generalist Name Role Phone Helder Haas MD Primary Care Provider Rina Schmitz MD Unavailable [phone] Artemio Prince MD Unavailable [phone] Lyly Horton MD Unavailable Olu Braga NP Unavailable [phone] Allergies Active Allergy Reactions Criticality Noted Date [...] x2 months then twice weekly x3 months. 020 Active Lactobac 40-Bifido 3-S.thermop (Probiotic) 100 billion cell capsule daily Active albuterol HFA (PROVENTIL HFA,VENTOLIN HFA,PROAIR HFA) 90 mcg/actuation inhaler INHALE 2 PUFFS BY MOUTH EVERY 6 HOURS NEEDED FOR WHEEZING 18 g 1 Active FLUoxetine (PROzac) 40 mg capsule Take 1 capsule (40 mg total) by mouth daily 90 capsule 3 Active calcium carbonate-vitamin D3 (CALTRATE 600 + D) 1500 mg (600 mg elemental) -400 units per tablet Take 2 tablets by mouth daily 600mg daily of calcium 180 tablet 2024 Active ketoconazole (NIZORAL) 2 % cream APPLY TOPICALLY TO AFFECTED AREAS OF FACE EVERY DAY UNTIL CLEAR. THEN USE NEEDED FOR FLARES. USE IN ROTATION WITH TACROLIMUS Active tacrolimus (PROTOPIC) 0.1 % ointment APPLY TO THE AFFECTED AREAS OF THE FACE ONCE NIGHTLY UNTIL CLEAR. THEN USE NEEDED FOR FLARES THEREAFTER. USE IN ROTATION WITH KETOCONAZOLE. Active cyclobenzaprine (FLEXERIL) 10 mg tablet Take 1 tablet (10 mg total) by mouth nightly for muscle spasms Active rimegepant (NURTEC ODT) tablet,disintegra tingIndications:M igraine Take 1 tablet (75 mg total) by mouth daily as needed (migraine) 8 tablet Active omeprazole (PriLOSEC) 20 mg capsule Take 2 capsules (40 mg total) by mouth daily 60 capsule 11 2025 Active ergocalciferol (VITAMIN D) 50,000 unit [...] BEDTIME AFTER CLEANSING. LAYER WITH MOISTURIZER NEEDED 025 Active desipramine (NOPRAMIN) 10 mg tabletIndications :Other [...] TWICE DAILY NEEDED FOR ANXIETY 30 tablet Active ALPRAZolam (XANAX) 0.5 mg tablet TAKE [...] status migrainosus, not intractable 03/27/2022 Overview (03/27/2022): [facility] ODT trial, PRN Umbilical hernia without obstruction and without gangrene 10/30/2021 Hypercholesterolemia 09/23/2021 Assessment & Plan (10/23/2021 12:43 PM CDT): Continuing statin therapy Hypertension, essential 09/23/2021 Assessment & Plan (05/30/2024 11:48 AM DEVOPS DEVELOPER): BP 124/80, stable. Hydrochlorothiazide cut down to [...] (01/27/2018): Added automatically from request for surgery [id number] Basal cell carcinoma (BCC) of skin of [...] screening mammogram 12/23/2008 Overview (02/27/2021): Overview: 11/30/07 WNL Screening for cervical cancer 12/23/2008 Overview (02/27/2021): Overview: 01/25/08 WNL Encounters Date Type Department Care Team Description 12/03/2024 Telephone [facility] Organization [address] [place] [id number] Aline Dooley MA Successful Phone Call (Med adherence) 11/27/[address] [facility] Medical [facility] Primary Care at [address] [address] Batool Fairchild MA Unsuccessful Phone Call 1 ([employer] med adh) 11/23/2024 Telephone [facility] Primary Care at [address] [address] Helder Haas MD Medication Request 10/28/2024 Results Follow-Up [facility] at [address] [phone] Helder Haas MD Comprehensive metabolic panel, Lipid panel, Thyroid Function [place], Additional followed-up results: 2 10/26/2024 Telephone [facility] Primary Care at [address] [phone] Helder Haas MD Test Results 10/26/2024 Telephone [facility] Primary [facility] at [address] [phone] Helder Haas MD Medical Question/Miscellmichelle s 10/25/2024 11:[address] [facility] Medical Group Outpatient Lab at [address] [phone] Hypertension, essential (Primary Dx) 10/25/2024 11:37 AM CDT - 10/25/2024 11:59 PM CDT Hospital Encounter [address] [address] Encounter for Medicare annual wellness exam Discharge Disposition: Discharge to home or self care 10/25/2024 Telephone [facility] Primary [facility] at [address] [phone] Wendy Rivas MA 10/24/2024 12:30 PM CDT Lab [facility] Outpatient Lab at [address] [phone] Hypertension, essential (Primary Dx) 10/24/2024 12:17 PM CDT - 10/24/2024 11:59 PM CDT Hospital Encounter [address] [address] Hypertension, essential; Gastroesophageal reflux disease without esophagitis; Other irritable bowel syndrome; Hypercholesterolemia; Vitamin D deficiency Discharge Disposition: Discharge to home or self care 10/24/2024 11:30 AM CDT Office Visit [facility] at [address] [phone] Helder Haas MD Hypertension, essential (Primary Dx); Mixed hyperlipidemia; Gastroesophageal reflux disease with esophagitis, unspecified whether hemorrhage; Vitamin D deficiency; Need for hepatitis B screening test from Last 3 Months Immunizations Immunization Administration Dates Next Due Influenza, Quadrivalent, Hig h Dose, Preservative Free, Intrr 04/04/2023,09/22/2021 Influenza, Trivalent, High D ose, Split, Preservative Free, Intramuscular 04/26/2024 Influenza, Unspecified 01/27/2023(Deferr ed: Patient Refused),06/27/2022(Deferred: Patient Refused),05/18/2022(Deferred: Patient Refused),06/27/2021(Deferred: Patient Refused),06/27/2020(Deferred: Patient Refused) Pneumococcal Conjugate Pcv20 04/04/2023 Surgical History Surgery Date Site/Laterality Comments HYSTERECTOMY 06/27/2002 - 06/26/2003 ORIF MANDIBULAR FRACTURE 06/27/1996 - 06/26/1997 x3 surgeries CYST REMOVAL MOHS SURGERY 06/27/2021 - 06/26/2022 had 4x in total on face, one on left leg EYE SURGERY 03/13/2018 Right Medial canthal reconstruction after MOHS FL FLUORO GUIDED INJECTION HIP LEFT 04/17/2021 Left Medical History Medical History Date Comments Fibromyalgia GERD (gastroesophageal reflux disease) Skin cancer, basal cell PONV (postoperative nausea and vomiting) Hyperlipidemia Hypertension History of Helicobacter pylori infection Family History Medical History Relation Name Comments Coronary artery disease Brother Stroke Brother 11x Cancer Father Family history of malignant neoplasm - (Added by TW Conv) Heart disease Father Family history of cardiac disorder - (Added by TW Conv) Cancer Mother Family history of malignant neoplasm - (Added by TW Conv) Diabetes Other 1 Family history of diabetes mellitus - Relation: Grandmother (Added by TW Conv) Seizures Other 2 Family history of seizures - (Added by TW Conv) Relation Name Status Comments Brother Father Mother Other 1 Other 2 Social History Tobacco Use Types Packs/Day Years [...] you are drinking? Patient does not drink 3 Q3: How often do you have si [...] place to sleep or slept in a senior care (including now)? No 09/22/2021 Education Answer Date Recorded What is the highest level of school you have completed or the highest degree you have received? 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 Not on file Not on file Obstetrics History Last Filed Vital Signs Vital Sign Reading [...] 10/24/2024 11:38 AM CDT Plan of Treatment Health Maintenance Due Date Last Done Comments Hepatitis B Screening 1973 Covid-19 Vaccine ( season) 2024 08/29/2020, 08/01/2020 Influenza Vaccine (#1) 2025 , 04/04/2023, 09/22/2021 Well Visit 65+ 04/26/2025 04/26/2024, 04/04/2023 Breast Cancer Screening-Mammogram 06/28/2025 06/28/2024, 06/28/2024, 06/23/2023, Additional history exists Fall Risk Assessment 07/18/2025 07/18/2024, 07/04/2024, 04/30/2024, Additional history exists Osteoporosis Screening-Bone Density Scan 10/17/2025 10/18/2023, 10/18/2023, 08/27/2021, Additional history exists Depression Screening 10/24/2025 10/24/2024, 07/18/2024, 07/04/2024, Additional history exists Zoster Vaccine (1 of 2) 10/24/2025 Post poned from 2005 (Insurance / Financial) DTaP/Tdap/Td Vaccine (1 - Tdap) 06/26/2026 Postponed from 1966 (Insurance / Financial) Colon Cancer Screening-Colonoscopy 11/14/2033 11/15/2023, 06/27/2019 Hepatitis C Screening Completed 10/21/2021 Pneumococcal vaccine 65+ Completed 04/04/2023 Colon Cancer Screening-CT Colonography Discontinued 11/15/2023 Colon Cancer Screening-DNA Stool Discontinued 11/15/2023 Colon Cancer Screening-FIT Discontinued 11/15/2023 Colon Cancer Screening-Sigmoidoscopy Discontinued 11/15/2023 Procedures Procedure Name Priority Date/Time Associated Diagnosis [...] gran abs 0.02 0.00 - 0.10 K/cumm [facility] Lymphocyte abs 1.69 0.80 - 3.30 K/cumm [facility] Monocyte abs 0.37 0.20 - 0.80 K/cumm [facility] Eosinophil abs 0.07 0.00 - 0.50 K/cumm [facility] Basophil abs 0.03 0.00 - 0.10 K/cumm [facility] Neutrophil [facility]ct 57.4 % [facility] Comment: Interpretive Data Percent cell count reference ranges are not reported, since discordance with absolute values may lead to misinterpretation of CBC data. Current Interpretive Data was last revised on 2017. Imm gran pct 0.4 % [facility] Comment: Interpretive Data Percent cell count reference ranges are not reported, since discordance with absolute values may lead to misinterpretation of CBC data. Current Interpretive Data was last revised on 2017. Lymphocyte pct 33.0 % [facility] Comment: Interpretive Data Percent cell count reference ranges are not reported, since discordance with absolute values may lead to misinterpretation of CBC data. Current Interpretive Data was last revised on 2017. Monocyte pct 7.2 % [facility] Comment: Interpretive Data Percent cell count reference ranges are not reported, since discordance with absolute values may lead to misinterpretation of CBC data. Current Interpretive Data was last revised on 2017. Eosinophil pct 1.4 % [facility] Comment: Interpretive Data Percent cell count reference ranges are not reported, since discordance with absolute values may lead to misinterpretation of CBC data. Current Interpretive Data was last revised on 2017. Basophil pct 0.6 % [facility] Comment: Interpretive Data Percent cell count reference ranges are not reported, since discordance with absolute values may lead to misinterpretation of CBC data. Current Interpretive Data was last revised on 2017. Blood 10/25/2024 11:3 7 AM CDT 10/25/2024 9:15 PM CDT Helder Haas MD LAB BLOOD ORDERABLES Final Result Performing Organization Address City/[facility] Co de Phone Number ROSANNA YIN [address] [place] [address] * (ABNORMAL) CBC with auto differential (10/25/2024 11:37 AM CDT) WBC 5.12 3.80 - 9.90 K/cumm Hgb 13.1 11.9 - 15.5 g/dL [facility] Hct 41.0 35.6 - 45.5 % [facility] Plt 281 150 - 400 K/cumm [facility] MPV 9.7 9.1 - 12.3 fL [facility] RBC 4.36 3.90 - 5.20 M/cumm [facility] MCV 94.0 81.3 - 96.4 fL [facility] MCH 30.0 27.1 - 33.3 pg [facility] MCHC 32.0(L) 32.3 - 35.7 g/dL [facility] RDW CV 13.6 11.1 - 14.9 % [facility] RDW SD 47.4 35.7 - 48.1 fL [facility] NRBC abs 0.00 0.00 - 0.01 K/cumm [facility] Blood 10/25/2024 11:3 7 AM CDT 10/25/2024 9:15 PM CDT Helder Haas MD LAB BLOOD ORDERABLES Final Result Performing Organization Address City/[facility] Co de Phone Number ROSANNA YIN [address] [place] [address] * eGFR (10/24/2024 12:17 PM CDT) eGFR 85 >=60 mL/min/1. 73 m2 Comment: [...] BLOOD ORDERABLES Final Result Performing Organization Address [facility] Co de Phone Number ROSANNA HUMPHREY [address] [place] [address] * Thyroid Function [place] (10/24/2024 12:17 PM CDT) TSH 1.30 0.30 - 4.20 mcIUnit/mL Blood 10/24/2024 12:1 7 PM CDT 10/24/2024 7:33 PM CDT Helder Haas MD LAB BLOOD ORDERABLES Final Result Performing Organization Address City/[facility] [place] [address] [address] [place] [place] [address] * Vitamin D 25 hydroxy (10/24/2024 12:17 PM CDT) Vitamin D 25-OH 58 30 - 80 ng/mL Blood 10/24/2024 12:1 7 PM CDT 10/24/2024 7:33 PM CDT us Helder Haas MD LAB BLOOD ORDERABLES Final Result [facility] YIN [address] [place] [address] * (ABNORMAL) Lipid panel (10/24/2024 12:17 PM [...] 3. Khalif M et al. SHAVONNE Cardiol. 2019October 25;5(5):540-548. doi: [email or web address] Current Interpretive Data was last revised on 2024. Non-HDL Cholesterol 163 mg/dL [facility] Comment: Interpretive Data Ages < or = [...] revised on 2018. Chol/HDL ratio 3 [facility] Blood 10/24/2024 12:1 7 PM CDT 10/24/2024 7:33 PM CDT Helder Haas MD LAB BLOOD ORDERABLES Final Result [facility] YIN [address] [place] [address] * Comprehensive metabolic panel (10/24/2024 12:17 PM [...] classification and Diagnosis of Diabetes Diabetes Care 202; 46: S19-S40. Current interpretive data was last [...] LAB BLOOD ORDERABLES Final Result [facility]NA YIN [address] [place] [address] * HM COLONOSCOPY (11/15/2023) Historical [...] with given history of: screen osteoporosis Postmenopausal. Automotive Refinisher/Model: [employer] Discovery SL (S/N [id number]) CLINICAL INFORMATION: Current height: 70 inches Maximum [...] Vance Bui M.D. MF: AROLDO Report ID: [id number] Reading Location: [place] [address] Procedure Note Vance Bui MD - 10/18/2023 EXAM DESCRIPTION: DEXA AXIAL SKELETON BONE DENSITY 1 OR MORE SITES REASON FOR STUDY: 68 y/o year old F with given history of: screen osteoporosis Postmenopausal. Automotive Refinisher/Model: [employer] Discovery SL ([id number]/N [id number]) CLINICAL INFORMATION: Current height: 70 inches Maximum [...] Vance Bui M.D. MF: AROLDO Report ID: [id number] Reading Location: [place] [address] Helder Haas MD IMG DXA PROCEDURES Final Re sult * Diagnostic Mammogram W Saud (06/23/2023) Anatomical Region Laterality Modality Breast Mammography Historical Provider IMToro MAMMO PROCEDURES Ruchi l Result * Hepatitis [...] LAB MICROBIOLOGY - GENERAL ORDERABLES Final Result Performing Organization Address City/State/[facility] [place] [address] [address] [place] [address] from Last 3 Months or Most Recently Relevant to Health Maintenance Insurance COUNTS INCLUDE 234 BEDS AT THE [facility] MEDICARE [facility] COUNTS INCLUDE 234 BEDS AT THE [facility] MEDICARE [facility] Advance Directives For more information, please contact: [phone] * Full Code (Latest Code Status on File) Date Activated Date Inactivated Comments 01/27/2018 1:59 PM 01/27/2018 4:00 PM Care Teams Accounting Generalist Relationship Specialty Start Date End Date Helder Haas MD [address] [place] [address] PCP - General Family Medicine 09/22/21 Rina Schmitz MD [address] [place] [address] Consulting Physician Dermatology 09/22/21 Artemio Prince MD [address] [place] [address] Referring Physician Gastroenterology 09/22/21 Lyly Horton MD [address] [facility] [address] [place] [address] Obstetrics and Gynecology 09/22/21 Olu Braga NP [address] [place] [address] Nurse Practitioner 05/18/22 Akiko Chester Psychologist 09/22/21
--- OUTSIDE RECORDS SUMMARY | 2025-01-10 12:07 | XMS_ITS ---
Author Organization [facility] Address [address] [place] [address] Care Team Providers Care Tar Chaser Name Role Phone Helder Haas MD Primary Care Provider Rina Schmitz MD Unavailable [phone] Artemio Prince MD Unavailable [phone] Lyly Horton MD Unavailable [phone] Olu Braga NP Unavailable Active Problems Problem Noted Date Diagnosed Date [...] status migrainosus, not intractable 03/27/2022 [facility]03[facility] Umbilical hernia without obstruction and without gangrene 10/30/2021 Hypercholesterolemia 09/23/2021 Assessment & Plan (10/23/2021 12:43 PM CDT): Continuing statin therapy Hypertension, essential 09/23/2021 Assessment & Plan (05/30/2024 11:48 AM 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 Hydrochlorothiazide cut down to [...] (01/27/2018): Added automatically from request for surgery [id number] Basal cell carcinoma (BCC) of skin of [...] cervical cancer 12/23/2008 Overview (02/27/2021): Overview: 01/25/08 [facility] Current Treatment and Therapy Plans No current plan information found. Past Treatment and Therapy Plans No past plan information found. Lifetime Dose Tracking * Chemical Lifetime Dose Automatic Entry Manual Entr y Fluoro Time 0.2 minutes 0.2 minutes 0 minutes Air kerma at the reference point (Ka,r) 1.436 mGy 1 .436 mGy 0 mGy
== END 2025-01-10 11:25 | disposition home or self-care (01) ==
PROVIDERS: PCP Family Medicine
DX: N64.4 Mastodynia (principal)
CPT/HCPCS: 77062; 77066; G0279

== ENCOUNTER 2025-03-04 11:16 | Outpatient (CLI) | payer MEDICARE, SELFPAY ==
--- NOTE | ~2025-03-04 | US_ITS ---
EXAM: US pelvic complete w TV - 03/04/2025 11:22 CDT History: 70 years old Female with Pelvic mass Comparison: None available. Technique Real time scanning of the transabdominal and transvaginal pelvis was performed. FINDINGS/ IMPRESSION: Partially filled urinary bladder. No pelvic mass seen on the ultrasound. Status post complete hysterectomy with bilateral oophorectomy. No sonographic abnormality seen in the pelvis or adnexa. Reviewed, dictated and finalized at location N.
== END 2025-03-04 11:17 | disposition home or self-care (01) ==
DX: R19.00 Intra-abdominal and pelvic swelling, mass and lump, unspecified site (principal)
CPT/HCPCS: 76830; 76856

== ENCOUNTER 2025-04-01 11:58 | Emergency (ER) | payer MEDICARE, SELFPAY ==
--- OUTSIDE RECORDS SUMMARY | 2023-12-01 05:14 | XMS_ITS | Continuity of Care Document ---
Author Organization [facility] Address [address] [place] [address] Phone Care Team Providers Care Solicitor Patent Name Role Phone Artemio Prince MD Unavailable Unavailable Allergies, Adverse Reactions, Alerts Substance Reaction Status Criticality Sulfa (Sulfonamide Antibiotics) Active No Information PENICILLIN Active No Information Medications Medication Instructions Dosage Effective Dates (start - stop) Status Comments peg 3350-electrolytes 236 gram-22.74 gram-6.74 gram-5.86 gram solution 1/2 bottle at 5pm the evening before colonoscopy, 1/2 bottle 6 hrs prior colonoscopy, as directed by physician. - Active or any covered generic clobetasol 0.05 % topical ointment apply by topical route 2 times every day a thin layer to the affected area(s) 0.00 - Active Gas-X Extra Strength 125 mg chewable tablet as needed - Active bupropion HCl XL 150 mg 24 hr tablet, extended release take 1 tablet by oral route every day 150 MG - Active alprazolam 0.5 mg tablet take 1 tablet by oral route 2 times every day as needed anxiety as needed 0.5 MG - Active amitriptyline 25 mg tablet take 1 tablet by oral route every day at bedtime 25 MG - Active Vitamin D2 1,250 mcg (50,000 unit) capsule take 1 capsule by oral route every 4 weeks 83879 UNITS - Active losartan 25 mg tablet take 1 to 1.5 tablet by oral route every day - Active fluoxetine 20 mg capsule take 1 capsule by oral route every 3 days in the morning 20 MG - Active tramadol 50 mg tablet take 1 tablet by oral route every 6 hours as needed 50 MG - Active atorvastatin 10 mg tablet take 1 tablet by oral route every day 10 MG - Active PANTOPRAZOLE 40MG TABLETS TAKE 1 TABLET BY MOUTH TWICE DAILY 40 MG - Active desipramine 10 mg tablet take 1 tablet by oral route every day at bedtime 10 MG - Active IMVEXXY (unknown strength) insert 1 vaginal insert by vaginal route 2 times every week (every 3 or 4 days) Not Available - Active PROBIOTIC (unknown strength) Daily Not Available - Active Procedures Procedure Date COLONOSCOPY, FLEXIBLE, DIAGNOSTIC W/ COL LECTION OF SPECIMEN UPPER GI ENDOSCOPY BIOPSY DEAMIDATED GLADIN PEPTIDE IGA DEAMIDATED GLADIN PEPTIDE IGG TISSUE TRANSGLUTIMASE IGA TISSUE TRANSGLUTIMASE IGG ROUTINE VENIPUNCTURE OFFICE [id number] SYST BP GE 130 - 139MM HG DIAST BP 80-89 MM HG COLONOSCOPY, FLEXIBLE, DIAGNOSTIC W/ COL LECTION OF SPECIMEN Advance Directives Directive Yes / No Effective Date File Name Life Support Not Answered N/A N/A Intubation Not Answered N/A N/A Antibiotics Not Answered N/A N/A IV Fluid Support Not Answered N/A N/A Tube Feed Not Answered N/A N/A Other Directive N/A N/A WARNING:The information contained in this section is historical and is provided for information only and does not constitute a legal document or any assurance that the information is still accurate. Please verify the information with the griggs of the legal document before using it for clinical purposes. Encounters Encounter Description Practice Location Reason(s) For Visit Diagnoses Date Provider Providers Copied on Encounter [facility], [address], [place], [place], [id number], [place] tel:[phone] [facility] No Information 4 Suresh Ulloa. [address] [facility], [place], [place], [id number] , [place]. tel: [phone] [facility], [address], [place], [place], [address], [place] tel:[phone] [facility] No Information 4 Suresh Ulloa. [address] [place], [place], [id number] , [place]. tel:[phone] Referring Provider: Helder Haas [address] [place] [address], [place], [address]. tel:[phone] [facility], [address], [place], [place], [address], [place] tel:[phone] [facility] No Information 0 4 Suresh Ulloa. [address] [place], [place], [id number] , [place]. tel: [phone] [facility], [address], [place], [place], [address], [place] tel:[phone] [facility] H. pylori infection 1 Porfirio Carlton. [address] [place] [address], [id number] , [place]. tel: [phone] [facility], [address], [place], [place], [address], [place] tel:[phone] [facility] Generalized abdominal pain 0 1 Porfirio Carlton. [address] [place] [address], [id number] , [place]. tel: [phone] OFFICE CENNX-CLI-XWN ANDED [facility], [address], [place], [place], [address], [place] tel:[phone] [facility] IBS (chief complaint) Generalized abdominal painAbdominal bloating 0 1 Porfirio Carlton. [address] [place] [address], [id number] , [place]. tel:[phone] Referring Provider: Serena Salazar, [address] [place] [address], [address]. tel:[phone] [facility], [address], [place], [place], [address], [place] tel:[phone] [facility] No Information 1 Porfirio Carlton. [address] [place], [place], [id number] , [place]. tel: [phone] [facility], [address], [place], [place], [address], [place] tel:[phone] [facility] No Information 1 Sureshvelia Ulloa. [address] [place] [address], [id number] , [place]. tel: [phone] [facility], [address], [place], [place], [id number], [place] tel:[phone] [facility] No Information 0 Suresh Gary. [address] [place] [address], [id number] , [place]. tel: [phone] Referring Provider: Serena Salazar, [address] [place], [address]. tel:[phone] [facility], [address], [place], [place], [address], [place] tel:[phone] [facility] Upper abdominal pain 8 Suresh Ulloa. [address] [place] [address], [id number] , [place]. tel: [phone] [facility], [address], [place], [place], [address], [place] tel:[phone] [facility] Abdominal pain, unspecified abdominal location 0 8 Porfirio Carlton. [address] [place] [address], [id number] , [place]. tel: [phone] [facility], [address], [place], [place], [address], [place] tel:[phone] [facility] Epigastric painAbdominal bloatingHistory of Helicobacter pylori infection 8 Porfirio Carlton. [address] [place] [address], [id number] , [place]. tel: [phone] Referring Provider: Serena Salazar, [address], [place], [address]. tel:[phone] [facility], [address], [place], [place], [address], tel:[phone] [facility] H. pylori infection 7 Suresh Ulloa. [address] [place] [address], [id number] , . tel: [phone] [facility], [address], [place], [place], [address], tel:[phone] [facility] Helicobacter pylori (H. pylori) infection 7 Suresh Ulloa. [address] [place], [place], [id number] , . tel: [phone] Family History Family Member Type Diagnosis Age At Onset No Information Payers Payer name Insurance type Covered republican ID Tunde zamora(s) MEDICARE MB [id number] Social History Type Description Quantity Date Captured Comments Alcohol Use Details Unknown Caffeine Use Details Unknown Tobacco Use Status No Information Smoking Status No Information Sex Female Chief Complaint And Reason For Visit No Information Reason For Referral Reason For Referral No Information Plan Of Treatment Date Type Action Status Referral Ordered: CT abdomen pelvis w con Appointment date/timeframe: 11/05/2020 ordered History Of Present Illness Encounter Date Complaint History Of Prese nt Illness IBS (comments) 65 year old denton blake that presents for IBS. She has had increased left sided abdominal pain. She has frequent bowel movements, wakes her up to have BMs stools are [place] 1, 4-5. She has lots of gas and rectal pressure-unsure if gas or stool. She feels like she is having abdominal bloating. She drinks lots of water. She is on desipramine for IBS. She went gluten free to see if helped with her symptoms. She is taking PPI BID, still having problems. IBS Functional Status Date Functional Assessmen t No Information Instructions Date Instruction Additional Infor carline We are checking allan ac with blood testDo the at home breath testFollow the FODMAP diet Related to Abdominal bloating We are getting a CT scanThe office will contact you to get scheduledOur office will with the results when they are available Related to Generalized abdominal pain Assessments Type Assessment Date No Information Patient Care Teams Name Effective Dates (start - stop) Status Members No Information
--- NOTE | ~2025-04-01 | CT_ITS ---
EXAMINATION: CT abdomen pelvis w con DATE: 04/01/2025 14:42 INDICATION: Gastrointestinal bleed TECHNIQUE: Computed tomography (CT) of the abdomen and pelvis was performed with 100 mL Omnipaque-350 intravenous contrast. Automated exposure control and iterative reconstruction technique were employed. The dose-length product was 555.65 mGy-cm. COMPARISON: 11/06/2020 FINDINGS: Mild discoid atelectasis in the lingula and bilateral lower lobes. Heart size is normal. No pericardial or pleural effusion. Tiny hepatic calcification and calcified aorta caval lymph nodes consistent with old granulomatous disease. Gallbladder, spleen, pancreas, bilateral adrenal glands and right kidney are normal. There are couple subcentimeter low-attenuation cysts in the left kidney. Bladder is normal. The uterus is not identified and has likely been surgically resected. Bowels including the appendix are normal with no wall thickening or obstruction. No free intraperitoneal gas or fluid. No pathologically enlarged abdominal or pelvic lymphadenopathy. Small fat-containing umbilical hernia. Mild thoracic and lumbar spondylosis. IMPRESSION: 1. No acute intra-abdominal/pelvic process. Reviewed, dictated and finalized at location A.
[2025-04-01 12:02] VITALS: BP 156/95; RESP 17; TEMP 37; O2SAT 96
--- OUTSIDE RECORDS SUMMARY | 2025-04-01 13:12 | XMS_ITS | Encounter Summary ---
Author Organization [facility] Address [address] [place] [address] Care Team Providers Care Leasing Manager Name Role Phone Luis Fernando Rosales MD Unavailable Encounter Details Date Type Department Care Team (Late st Contact Info) Description 05/24/2023 Lab Requisition [facility]erm[facility] Lab [address] [facility] [facility] [place] [phone] Gregg Antonio Jr., MD [address] [facility] [place] [address] Social History Tobacco Use Types Packs/Day Years Used Date Smoking Tobacco: Never Alcohol Use Standard Drinks/Week Comments No 0 (1 standard drink = 0.6 oz pur e alcohol) Comments No Sex and Gender Information Value Date Recorded Sex Assigned at Not on file Legal Sex Female 5:56 AM ACCOUNT CONSULTANT Gender Identity Not on file Sexual Orientation Not on file documented as of this encounter Plan of Treatment Not on file documented as of this encounter Procedures Procedure Name Priority Date/Time Associated Diagnosis Comments DERMATOPATHOLOGY Routine 05/23/2023 12:0 0 AM ACCOUNT CONSULTANT documented in this encounter Results * DERMATOPATHOLOGY (05/23/2023 12:00 AM ACCOUNT CONSULTANT) Case Report Dermatopathology Report Case: [id number] Authorizing Provider: Gregg Antonio Jr., MD Collected: 05/23/2023 12:00 AM Ordering Location: [facility] Received: 05/24/2023 01:58 PM Pathologist: Bonnie Jade MD Specimen: Skin, left proximal pretibial region 3:59 PM [facility] DERMATOPATHOLOGY LABORATORY Final Diagnosis Specimen A. SKIN, left proximal pretibial region: BASAL CELL CARCINOMA, SUPERFICIAL MULTIFOCAL (C44.719) 3 3:59 PM [facility] DERMATOPATHOLOGY LABORATORY at 1559 ACCOUNT CONSULTANT Clinical History Squamous Cell Carcinoma vs. Basal Cell Carcinoma 3 3:59 PM [facility] DERMATOPATHOLOGY LABORATORY Gross Description Specimen A: Received is one formalin filled container labeled with the patient's name and designated left proximal pretibial region. The specimen consists of a shave biopsy measuring 6x5x1 mm. Jar 0. 3 3:59 PM [facility] DERMATOPATHOLOGY LABORATORY Microscopic Description Specimen A. SKIN, left proximal pretibial region: Attached to the undersurface of the epidermis, there are small aggregates of basaloid cells with a high nuclear to cytoplasmic ratio and peripheral palisading. 3 3:59 PM [facility] DERMATOPATHOLOGY LABORATORY Disclaimer An external and internal positive and negative controls are appropriate for the histochemical, immunohistochemical and immunofluorescence stain(s) in this case (if any), except where stated explicitly. The performance characteristics of the stain(s) cited in this report were developed and its performance characteristic determined by the Dermatopathology Laboratory at [facility], directed by Dr. Lisa Cruz. These tests need not be, and therefore are not, approved by the [place] Food and Drug Administration. The tests are used for clinical purposes. Billing Codes Specimen Charges Stain Charges 82481 1 3 3:59 PM [facility] DERMATOPATHOLOGY LABORATORY Embedded Images 3 3:59 PM [facility] DERMATOPATHOLOGY LABORATORY Pathology/Cytolog y TISSUE SPECIMEN FROM SKIN / Unknown 05/23/2023 05/24/2023 1:58 PM [facility] us Gregg Antonio Jr., MD LAB - PATHOLOGY/CYTOLOG Y ORDERABLES Final Result DERMATOPATHOLOGY LABORATORY [facility] - Department of Dermatology [address] [phone] documented in this encounter Visit Diagnoses Not on filedocumented in this encounter Care Teams Leasing Manager Relationship Specialty Start Date End Date Luis Fernando Rosales MD [address] [place] [address] [address] [place] [address] PCP - TIERA 12/23/08 documented as of this encounter
--- OUTSIDE RECORDS SUMMARY | 2025-04-01 13:12 | XMS_ITS | Encounter Summary ---
Author Organization [facility] Address [address] [place] [address] Care Team Providers Care Cross Country Coach Name Role Phone Luis Fernando Rosales MD Unavailable Encounter Details Date Type Department Care Team (Late st Contact Info) Description 04/21/2023 Lab Requisition [facility] - DermPath Lab [address] [facility] [place] [id number] Grgeg Antonio Jr., MD [address] [facility] [address] [place] [address] Social History Tobacco Use Types Packs/Day Years Used Date Smoking Tobacco: Never Alcohol Use Standard Drinks/Week Comments No 0 (1 standard drink = 0.6 oz pur e alcohol) Comments No Sex and Gender Information Value Date Recorded Sex Assigned at Not on file Legal Sex Female 5:56 AM HARPOON ENGAGEMENT PLANNING OPERATOR Gender Identity Not on file Sexual Orientation Not on file documented as of this encounter Plan of Treatment Not on file documented as of this encounter Procedures Procedure Name Priority Date/Time Associated Diagnosis Comments DERMATOPATHOLOGY Routine 04/20/2023 12:0 0 AM CDT documented in this encounter Results * DERMATOPATHOLOGY (04/20/2023 12:00 AM CDT) Case Report Dermatopathology Report Case: [id number] Authorizing Provider: Gregg Antonio Jr., MD Collected: 04/20/2023 12:00 AM Ordering Location: [facility] DermPath Lab Received: 04/21/2023 12:59 PM Pathologist: [...] characteristic determined by the Dermatopathology Laboratory at [facility], directed by Dr. Lisa Cruz. These tests need not be, and therefore are not, approved by the [place] Food and Drug Administration. The tests are used for clinical purposes. Billing Codes Specimen Charges Stain Charges 30041 1 12:30 PM CDT DERMATOPATHOLOGY LABORATORY Embedded Images 12:30 PM CDT DERMATOPATHOLOGY LABORATORY Pathology/Cytolog y TISSUE SPECIMEN FROM SKIN / Unknown 04/20/2023 04/21/2023 12:59 PM CDT us Gregg Antonio Jr., MD LAB - PATHOLOGY/CYTOLOG Y ORDERABLES Final Result DERMATOPATHOLOGY LABORATORY [facility] - Department of Dermatology [address], [address] [phone] documented in this encounter Visit Diagnoses Not on filedocumented in this encounter Care Teams Cross Country Coach Relationship Specialty Start Date End Date Luis Fernando Rosales MD [address] [place] [address] PCP - OBGYN 12/23/08 documented as of this encounter
--- OUTSIDE RECORDS SUMMARY | 2025-04-01 13:12 | XMS_ITS | Clinical Summary ---
Author Organization [facility] Address [address] [facility] [place] [address] Care Team Providers Care Complaint Supervisor Name Role Phone Luis Fernando Rosales MD Unavailable Source Comments [facility],non-owned Affiliates and Associated Physician Practices is amultiple site organization consisting of ambulatory clinics and hospital sitesin [place], [place], [place] and [place]. This disclosure is being madepursuant to the Care Everywhere program and may not contain all information available regarding this patient. Last updated 18.[facility] Allergies Active Allergy Reactions Criticality Noted Date [...] on file Legal Sex Female 5:56 AM SPACE SYSTEMS OPERATIONS CRAFTSMAN Gender Identity Not on file Sexual Orientation Not on file Last Filed Vital Signs Vital Sign Reading Time Taken Comments Blood Pressure 150/97 07/05/2011 3:08 PM SPACE SYSTEMS OPERATIONS CRAFTSMAN Pulse 69 07/05/2011 3:08 PM SPACE SYSTEMS OPERATIONS CRAFTSMAN Temperature - - Respiratory Rate - - Oxygen Saturation - - Inhaled Oxygen Concentration - - Weight 78 kg (172 lb) 07/05/2011 3:08 PM SPACE SYSTEMS OPERATIONS CRAFTSMAN Height 177.8 cm (5' 10) 07/05/2011 3:08 PM SPACE SYSTEMS OPERATIONS CRAFTSMAN Body Mass Index 24.68 07/05/2011 3:08 PM SPACE SYSTEMS OPERATIONS CRAFTSMAN Plan of Treatment Health Maintenance Due Date [...] 2) 2005 MAMMOGRAM 07/05/2013 07/05/2011, 04/09/2010, 04/08/2009 DEPRESSION SCREENING 06/27/2024 COVID-19 VACCINE (1 - 2023-2 5 season) 2025 INFLUENZA VACCINE (#1) 2025 Respiratory Syncytial Virus [...] MAMMO BILAT SCREENING Routine 07/05/2011 2:37 PM SPACE SYSTEMS OPERATIONS CRAFTSMAN Other screening mammogram from Last 3 Months or Most Recently Relevant to Health Maintenance Results * MAMMO SCREENING DIGITAL IMAGE BILAT G0202 (07/05/2011 2:37 PM SPACE SYSTEMS OPERATIONS CRAFTSMAN) Anatomical Region Laterality Modality Breast Bilateral Mammography 07/05/2011 3:30 PM SPACE SYSTEMS OPERATIONS CRAFTSMAN Narrative 07/05/2011 3:41 PM SPACE SYSTEMS OPERATIONS CRAFTSMAN DIGITAL BILATERAL SCREENING MAMMOGRAMS WITH CAD CORRELATION [...] if suspicious findings are present clinically. An [employer] Certified Facility Procedure Note [...] if suspicious findings are present clinically. An [employer] Certified Facility Luis Fernando Rosales MD MAMMO ORDERABLES Final Result from Last 3 Months or Most Recently Relevant to Health Maintenance Insurance MEDICARE [facility] * Guarantor: HELIO RONQUILLO Account Type Relation to Patient Date of Phone Billing Address Personal/Family [id number] [address] MEDICARE [facility] * Guarantor: KATINA RONQUILLO Account Type Relation to Patient Date of Phone Billing Address Personal/Family [id number] [address] Care Teams Complaint Supervisor Relationship Specialty Start Date End Date Luis Fernando Rosales MD [address] [place] [address] PCP - OBGYN 12/23/08
--- OUTSIDE RECORDS SUMMARY | 2025-04-01 13:12 | XMS_ITS ---
Author Organization [facility] Address [address] [place] [address] Care Team Providers Care Glass Mechanic Name Role Phone Helder Haas MD Primary Care Provider [phone] Rina Schmitz MD Unavailable [phone] Artemio Prince MD Unavailable [phone] Lyly Horton MD Unavailable Olu Braga NP Unavailable [phone] Active Problems Problem Noted Date Diagnosed Date [...] status migrainosus, not intractable 03/27/2022 [facility] Umbilical hernia without obstruction and without gangrene 10/30/2021 Hypercholesterolemia 09/23/2021 Assessment & Plan (10/23/2021 12:43 PM CDT): Continuing statin therapy Hypertension, essential 09/23/2021 Assessment & Plan (05/30/2024 11:48 AM WARP WORKER): BP 124/80, stable. Hydrochlorothiazide cut down [...] (01/27/2018): Added automatically from request for surgery [id number] Basal cell carcinoma (BCC) of skin of [...] cervical cancer 12/23/2008 Overview (02/27/2021): Overview: 01/25/08 [facility] Current Treatment and Therapy Plans No current plan information found. Past Treatment and Therapy Plans No past plan information found. Lifetime Dose Tracking * Chemical Lifetime Dose Automatic Entry Manual Entr y Fluoro Time 0.2 minutes 0.2 minutes 0 minutes Air kerma at the reference point (Ka,r) 1.436 mGy 1 .436 mGy 0 mGy
--- OUTSIDE RECORDS SUMMARY | 2025-04-01 13:12 | XMS_ITS | Encounter Summary ---
Author Organization [facility] Address [address] [facility] [place] [address] Care Team Providers Care Criminal Records Technician Name Role Phone Luis Fernando Rosales MD Unavailable Encounter Details Date Type Department Care Team (Late st Contact Info) Description 05/20/2021 Lab Requisition [facility] Care DermPath Lab [address] [facility] [place] [phone] Gregg Antonio Jr., MD [address] [facility] [address] [place] [address] Social History Tobacco Use Types Packs/Day Years Used Date Smoking Tobacco: Never Alcohol Use Standard Drinks/Week Comments No 0 (1 standard drink = 0.6 oz pur e alcohol) Comments No Sex and Gender Information Value Date Recorded Sex Assigned at Not on file Legal Sex Female 5:56 AM PARTNERSHIP MANAGER Gender Identity Not on file Sexual Orientation Not on file documented as of this encounter Plan of Treatment Not on file documented as of this encounter Procedures Procedure Name Priority Date/Time Associated Diagnosis Comments DERMATOPATHOLOGY Routine 05/20/2021 12:0 0 AM PARTNERSHIP MANAGER documented in this encounter Results * DERMATOPATHOLOGY (05/20/2021 12:00 AM PARTNERSHIP MANAGER) Case Report Dermatopathology Report Case: [id number] Authorizing Provider: Gregg Antonio Jr., MD Collected: 05/20/2021 12:00 AM Ordering Location: [facility] Care DermPath Lab Received: 05/20/2021 12:02 PM Pathologist: Aster Ferguson MD Specimen: Skin, right lower cutaneous lip 12:44 PM [facility] DERMATOPATHOLOGY LABORATORY Final Diagnosis Specimen A. SKIN, right lower cutaneous lip: BASAL CELL CARCINOMA, NODULAR TYPE (C44.319) 12:44 PM [facility] DERMATOPATHOLOGY LABORATORY at [address] PARTNERSHIP MANAGER Clinical History Basal cell carcinoma vs sebaceous hyperplasia vs dermal nevus. . 12:44 PM [facility] DERMATOPATHOLOGY LABORATORY Gross Description Specimen A: Received is one formalin filled container labeled with the patient's name and designated right lower cutaneous lip. The specimen consists of a shave biopsy measuring [id number]. Jar 0. 12:44 PM [facility] DERMATOPATHOLOGY LABORATORY Microscopic Description Specimen A. SKIN, right lower cutaneous lip: Within the dermis there are aggregates of basaloid cells with a high nuclear to cytoplasmic ratio and peripheral palisading. 12:44 PM [facility] DERMATOPATHOLOGY LABORATORY Disclaimer An external and internal positive and negative controls are appropriate for the histochemical, immunohistochemical and immunofluorescence stain(s) in this case (if any), except where stated explicitly. The performance characteristics of the stain(s) cited in this report were developed and its performance characteristic determined by the Dermatopathology Laboratory at [facility], directed by Dr. Lisa Cruz. These tests need not be, and therefore are not, approved by the [place] Food and Drug Administration. The tests are used for clinical purposes. Billing Codes Specimen Charges Stain Charges 55472 1 12:44 PM [facility] DERMATOPATHOLOGY LABORATORY Embedded Images 12:44 PM [facility] DERMATOPATHOLOGY LABORATORY Pathology/Cytolog y TISSUE SPECIMEN FROM SKIN / Unknown 05/20/2021 05/20/2021 12:02 PM [facility] Gregg Antonio Jr., MD LAB - PATHOLOGY/CYTOLOG Y ORDERABLES Final Result DERMATOPATHOLOGY LABORATORY [facility] - Department of Dermatology [address] [phone] documented in this encounter Visit Diagnoses Not on filedocumented in this encounter Care Teams Criminal Records Technician Relationship Specialty Start Date End Date Luis Fernando Rosales MD [address] [place] [address] PCP Danitza MOTT 12/23/08 documented as of this encounter
--- OUTSIDE RECORDS SUMMARY | 2025-04-01 13:12 | XMS_ITS | Clinical Summary ---
Author Organization [facility] Address [address] [place] [address] Care Team Providers Care Emts Name Role Phone Helder Haas MD Primary Care Provider [phone] Rina Schmitz MD Unavailable [phone] Artemio Prince MD Unavailable [phone] Lyly Horton MD Unavailable [phone] Olu Braga NP Unavailable Allergies Active Allergy Reactions Criticality Noted Date Comments Penicillin Hives Medium 09/14/2017 Penicillins Hives High 12/23/2008 Sulfa (Sulfonamide Antibiotics) Hives High 07/28 Medications estradiol (ESTRACE) 1 mg tablet TK 1 T PO D 3 10/27/19 18 Active flaxseed oil 1,000 mg capsule Active fish,bora,flax oils-om3,6,9no1 1,200 mg capsule Act alexys acetaminophen (TYLENOL) 325 mg tablet Active ascorbic acid (VITAMIN C) 500 mg tablet,chewable Acti ve melatonin 1 mg/4 mL drops Active clobetasoL (TEMOVATE) 0.05 % ointment Apply thin layer to affected area twice daily for 1 month then once daily x2 months then twice weekly x3 months. 02/14/20 20 Active Lactobac 40-Bifido 3-S.thermop (Probiotic) 100 billion cell capsule daily Active FLUoxetine (PROzac) 40 mg capsule Take 1 capsule (40 mg total) by mouth daily 90 capsule 3 03/14/20 24 Active calcium carbonate-vitamin D3 (CALTRATE 600 + D) 1500 mg (600 mg elemental) -400 units per tablet Take 2 tablets by mouth daily 600mg daily of calcium 180 tablet 3 03/21/20 24 Active ketoconazole (NIZORAL) 2 % cream APPLY TOPICALLY TO AFFECTED AREAS OF FACE EVERY DAY UNTIL CLEAR. THEN USE NEEDED FOR FLARES. USE IN ROTATION WITH TACROLIMUS 05/23/20 24 Active tacrolimus (PROTOPIC) 0.1 % ointment APPLY TO THE AFFECTED AREAS OF THE FACE ONCE NIGHTLY UNTIL CLEAR. THEN USE NEEDED FOR FLARES THEREAFTER. USE IN ROTATION WITH KETOCONAZOLE. 05/23/20 24 Active cyclobenzaprine (FLEXERIL) 10 mg tablet Take 1 tablet (10 mg total) by mouth nightly for muscle spasms 07/04/19 25 Active rimegepant (NURTEC ODT) tablet,disintegrat ingIndications:Nba howard Take 1 tablet (75 mg total) by mouth daily as needed (migraine) 8 tablet 07/05/19 25 Active omeprazole (PriLOSEC) 20 mg capsule Take 2 capsules (40 mg total) by mouth daily 60 capsule 11 09/05/19 25 026 Active ergocalciferol (VITAMIN D) 50,000 unit capsule TAKE 1 CAPSULE BY MOUTH 1 TIME A WEEK 12 capsule 1 09/29/[address] (VOLTAREN) 75 mg EC tablet Take 1 tablet (75 mg total) by mouth 2 (two) times a day 10/24/19 25 Active predniSONE (DELTASONE) 10 mg tablet 10/24/19 25 Active tretinoin (RETIN-A) 0.025 % cream APPLY A PEA SIZED AMOUNT TOPICALLY TO ENTIRE FACE EVERY NIGHT AT BEDTIME AFTER CLEANSING. LAYER WITH MOISTURIZER NEEDED 07/19/19 25 Active desipramine (NOPRAMIN) 10 mg tabletIndications: Other irritable bowel syndrome Take 2 tablets (20 mg total) by mouth nightly 200 tablet 1 11/22/19 25 Active hydroCHLOROthiazid e (HYDRODIURIL) 25 mg tablet TAKE 1 TABLET(25 MG) BY MOUTH DAILY 90 tablet 1 12/09/19 25 Active amLODIPine (NORVASC) 5 mg tabletIndications: Hypertension, essential TAKE 1 TABLET(5 MG) BY MOUTH DAILY 90 tablet 3 12/09/19 25 Active atorvastatin (LIPITOR) 20 mg tabletIndications: Mixed hyperlipidemia Take 1 tablet (20 mg total) by mouth daily Take 1 tablet by mouth at bedtime. Please dispense 100 day supply as covered by insurance. 100 tablet 1 01/15/20 25 Active losartan (COZAAR) 50 mg tabletIndications: Hypertension, essential Take 1 tablet (50 mg total) by mouth 2 (two) times a day Please dispense 100 day supply as covered by insurance. 200 tablet 1 01/15/20 25 Active albuterol HFA (PROVENTIL HFA,VENTOLIN HFA,PROAIR HFA) 90 mcg/actuation inhaler Inhale 2 puffs every 6 (six) hours as needed for shortness of breath or wheezing for wheezing 18 g 1 02/19/20 25 Active ALPRAZolam (XANAX) 0.5 mg tablet Take 1 tablet (0.5 mg total) by mouth nightly as needed for anxiety 30 tablet 03/05/20 25 Active ALPRAZolam (XANAX) 0.5 mg tablet TAKE 1 TABLET(0.5 MG) BY MOUTH TWICE DAILY NEEDED FOR ANXIETY 30 tablet 01/08/20 25 025 Discontin ued(Reord er) Active Problems Problem Noted Date Diagnosed Date [...] status migrainosus, not intractable 03/27/2022 [facility] Umbilical hernia without obstruction and without gangrene 10/30/2021 Hypercholesterolemia 09/23/2021 Assessment & Plan (10/23/2021 12:43 PM CDT): Continuing statin therapy Hypertension, essential 09/23/2021 Assessment & Plan (05/30/2024 11:48 AM LEGAL CONTRACTS SPECIALIST): BP 124/80, stable. Hydrochlorothiazide cut down to [...] (01/27/2018): Added automatically from request for surgery [id number] Basal cell carcinoma (BCC) of skin of [...] Encounters Date Type Department Care Team Description 04/01/2025 Nurse Triage [facility] Primary Care at [address] [phone] Helder Haas MD 03/27/2025 Telephone [facility] Primary Care at [address] [phone] Helder Haas MD Referral Request 03/25/2025 Telephone [facility] Primary Care at [address] [address] Helder Haas MD Recommendation Request 03/13/2025 Telephone [facility] Primary Care at [address] [phone] Helder Haas MD Med Refill 01/14/2025 ACO Clinical Pharmacist [facility] Primary Care at [address] [address] Noelle Magdaleno, SAMI Hypertension, essential (Primary Dx); Mixed hyperlipidemia from Last 3 Months Immunizations Immunization Administration [...] place to sleep or slept in a long-term (including now)? No 09/22/2021 Education Answer Date Recorded What is the highest level of school you have completed or the highest degree you have received? High school graduate 09/22/2021 Comments No Sex and Gender Information Value Date Recorded Sex Assigned at Not on file Legal Sex Female 6:57 PM LEGAL CONTRACTS SPECIALIST Gender Identity Not on file Sexual Orientation [...] B Screening 1973 Covid-19 Vaccine ( season) 2025 08/29/2020, 08/01/2020 Influenza Vaccine (#1) 2025 , 04/04/2023, 09/22/2021 Well Visit 65+ 04/26/2025 04/26/2024, 04/04/2023 Fall Risk Assessment 07/18/2025 07/18/2024, 07/04/2024, 04/30/2024, Additional history exists Osteoporosis Screening-Bone Density Scan 10/17/2025 10/18/2023, 10/18/2023, 08/27/2021, Additional history exists Depression Screening 10/24/2025 10/24/2024, 07/18/2024, 07/04/2024, Additional history exists Zoster Vaccine (1 of 2) 10/24/2025 Post poned from 2005 (Insurance / Financial) Breast Cancer Screening-Mammogram 01/10/2026 01/10/2025, 06/28/2024, 06/28/2024, Additional history exists DTaP/Tdap/Td Vaccine (1 - Tdap) 06/26/2026 Postponed from 1966 (Insurance / Financial) Colon Cancer Screening-Colonoscopy 11/14/2033 11/15/2023, 06/27/2019 Hepatitis C Screening Completed 10/21/2021 Pneumococcal vaccine 65+ Completed 04/04/2023 Colon Cancer Screening-CT Colonography Discontinued 11/15/2023 Colon Cancer Screening-DNA Stool Discontinued 11/15/2023 Colon Cancer Screening-FIT Discontinued 11/15/2023 Colon Cancer Screening-Sigmoidoscopy Discontinued 11/15/2023 Procedures Procedure Name Priority Date/Time Associated Diagnosis Comments DIAGNOSTIC MAMMOGRAM BILATERAL W SAUD Schedule Routine, Read Routine (OP Routine) 01/10/2025 HM COLONOSCOPY Routine 11/15/2023 DEXA AXIAL SKELETON BONE DENSITY 1 OR MORE SITES Schedule Routine, Read Routine (OP Routine) 10/18/2023 8:21 AM CDT Screening for osteoporosis Asymptomatic menopausal state HEPATITIS C ANTIBODY Routine 10/21/2021 1:55 PM CDT Encounter for hepatitis C screening test for low risk patient from Last 3 Months or Most Recently Relevant to Health Maintenance Results * Diagnostic Mammogram Bilateral W Saud (01/10/2025) Anatomical Region Laterality Modality Breast Bilateral Mammography us Historical Provider IMG MAMMO PROCEDURES Ruchi l Result * HM COLONOSCOPY (11/15/2023) us Historical Provider HEALTH MAINTENANCE Final Result * Dexa Axial Skeleton Bone Density 1 Or 2 Site (10/18/2023 8:21 AM CDT) Anatomical Region Laterality Modality Body N/A Other 10/18/2023 6:41 PM CDT Narrative 10/18/2023 6:42 PM CDT EXAM DESCRIPTION: DEXA AXIAL SKELETON BONE DENSITY 1 OR MORE SITES REASON FOR STUDY: 68 y/o year old F with given history of: screen osteoporosis Postmenopausal. Senior Data Scientist/Model: Zelgor SL (S/N [id number]) CLINICAL INFORMATION: Current height: 70 inches Maximum [...] Vance Bui M.D. MF: AROLDO Report ID: [id number] Reading Location: [address] Note Vance Bui MD - 10/18/2023 EXAM DESCRIPTION: DEXA AXIAL SKELETON BONE DENSITY 1 OR MORE SITES REASON FOR STUDY: 68 y/o year old F with given history of: screen osteoporosis Postmenopausal. Senior Data Scientist/Model: Cloud.CM Discovery SL (S/N [id number]) CLINICAL INFORMATION: Current height: 70 inches Maximum [...] Vance Bui M.D. MF: AROLDO Report ID: [id number] Reading Location: [place] [address] us Helder Haas MD IMG DXA PROCEDURES Final Re sult * Hepatitis C antibody (10/21/2021 1:55 PM CDT) Pathologist [facility] Hep C Ab Nonreactive [facility]reactive [facility] Comment: Interpretive Data Nonreactive: Antibodies to HCV [...] 1:55 PM CDT 10/21/2021 6:30 PM CDT us Helder Haas MD LAB MICROBIOLOGY - GENERAL ORDERABLES Final Result Performing Organization Address City/State/ZIP Co ct Phone Number [place] [address] Department [place] [address] from Last 3 Months or Most Recently Relevant to Health Maintenance Insurance [facility] MEDICARE [facility]IC[facility] Advance Directives For more information, please contact: [phone] * Full Code (Latest Code Status on File) Date Activated Date Inactivated Comments 01/27/2018 1:59 PM 01/27/2018 4:00 PM Care Teams Emts Relationship Specialty Start Date End Date Helder Haas MD [address] [place] [address] PCP - General Family Medicine 09/22/21 Rina Schmitz MD [address] [place] [address] Consulting Physician Dermatology 09/22/21 Artemio Prince MD [address] [place] [address] Referring Physician Gastroenterology 09/22/21 Lyly Horton MD [id number] [place] [address] Obstetrics and Gynecology 09/22/21 Olu Braga NP [address] [place] [address] Nurse Practitioner 05/18/22 Akiko Chester Psychologist 09/22/21
--- OUTSIDE RECORDS SUMMARY | 2025-04-01 13:12 | XMS_ITS | Encounter Summary ---
Author Organization [facility] Healthcare Address [address] [place] [address] Care Team Providers Care Security Intelligence Analyst Name Role Phone Helder Haas MD Primary Care Provider Rina Schmitz MD Unavailable [phone] Artemio Prince MD Unavailable [phone] Lyly Horton MD Unavailable Olu Braga NP Unavailable [phone] Reason for Visit * Reason Onset Date Comments Rectal Bleeding 04/01/2025 Encounter Details Date Type Department Care Team (Late st Contact Info) Description 04/01/2025 Nurse Triage [facility] Primary Care at [address] [address] Helder Haas MD [address] [place] [address] [address] [place] [address] Social History Tobacco Use Types Packs/Day Years [...] you are drinking? Patient does not drink 11/21/202 3 Q3: How often do you have [...] place to sleep or slept in a residential (including now)? No 09/22/2021 Education Answer Date Recorded What is the highest level of school you have completed or the highest degree you have received? 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 Pt has IBS. Has 3-5 stools per day. Black stools started last week, can have yellow bowels then turns very dark, has knots in stool. No tarry or red bloody stools. Has GI visit 04/10. Pressure felt in abd and left side of abd, also under breast in GI tract. Nov vomiting, no fever. Abd pressure is constant 5-6/10. Has bloating and gas. Denies dizziness. No iron or pepto bismol, no blood thinners. RN advised ED now for black stools and pt agrees with advice, RN routing FYI to clinical pool. Disposition Go to ED Now Reason for Disposition Bloody, black, or tarry bowel movements (Exception: Chronic-unchanged black-graf bowel movements and is taking iron pills or Pepto-Bismol.) Protocols Used Rectal [id number] * Telephone Encounter - Rosemarie Izaguirre RN - 04/01/2025 10:19 AM CDT Regarding: black/hoskins slow bowels, pressure in abdomen area ----- Message from Serena Brewer sent at 04/01/2025 10:04 AM CDT ----- Symptom Based Call Chief Complaint(s): black/hoskins slow bowels, pressure in abdomen area Duration: 4 weeks, worsening What type of symptom(s) is the patient experiencing? Red Flag. Is the patient concerned they are experiencing a medical emergency requiring an ambulance? No Additional Comments: Patient went to [facility] about a month ago, they felt a mass on pelvic bone and ordered an US which showed nothing, They told patient to see a GI right away suspecting a tear in their colon they are having a lot of painful pressure and stools sometimes are now black. They have anappointment with GI on 04/10/2025. They are asking if they should wait or if they should go to ER. Does message need to be routed? Yes-Action Needed documented in this encounter Plan of Treatment Not on file documented as of this encounter Visit Diagnoses Not on filedocumented in this encounter Care Teams Security Intelligence Analyst Relationship Specialty Start Date End Date Helder Haas MD [address] [place] [address] PCP - General Family Medicine 09/22/21 Rina Schmitz MD [facility] [place] [address] Consulting Physician Dermatology 09/22/21 Artemio Prince MD [address] [place] [address] Referring Physician Gastroenterology 09/22/21 Lyly Horton MD [address] [facility] [address] [place] [address] Obstetrics and Gynecology 09/22/21 Olu Braga NP [address] [place] [address] Nurse Practitioner 05/18/22 Akiko Chester Psychologist 09/22/21 documented as of this encounter
--- OUTSIDE RECORDS SUMMARY | 2025-04-01 13:13 | XMS_ITS | Clinical Summary ---
Author Organization [facility] Address [address] [place] [address] Care Team Providers Care Social Security Benefits Interviewer Name Role Phone Serena Salazar MD Primary Care Provider [phone] Allergies Active Allergy Reactions Criticality Noted Date [...] 6 H PRN TAT 0 8 Active cyclobenzaprine (FLEXERIL) 10 mg tablet TK 1 T [...] 40 mg by mouth daily. 3 Active hydroCHLOROthia zide 25 mg tablet Take 25 mg by [...] per week. 60 Gram 5 4 Active omeprazole (PriLOSEC) 20 mg Capsule, Delayed Release(E.C.) 5 Active tacrolimus (PROTOPIC) 0.1 % Ointment APPLY TO THE AFFECTED AREAS OF THE FACE ONCE NIGHTLY UNTIL CLEAR. THEN USE NEEDED FOR FLARES THEREAFTER. USE IN ROTATION WITH KETOCONAZOLE. 4 Active atorvastatin (LIPITOR) 20 mg tablet 5 Active estradioL (ESTRACE) 0.01% (0.1 mg/g) vaginal creamIndication s:Vaginal atrophy Use at night twice weekly. 42.5 Gram 5 5 Active amLODIPine (NORVASC) 5 mg tablet Take 5 mg by mouth daily. 4 03/14/20 25 nystatin (MYCOSTATIN) 100,000 unit/gram Cream Apply to affected area 2 times daily for 14 days. 30 Gram 5 03/08/20 25 Active Problems Patient Care Coordination No te Formatting of this note migh t be different from the original. Primary Care: Serena Salazar MD Referring Provider: Lyly Horton MD [address] [facility] [address] [place] [address] Other: Dr Kim Da Silva MD Problem Noted Date Diagnosed Date Breast fibroadenoma, left 12/15/2022 Lichen sclerosus et atrophicus of the vulva 07/29 Postmenopausal atrophic vaginitis 08/07/2012 Dyspareunia 08/07/2012 S/P total hysterectomy and B SO (bilateral salpingo-oophorectomy) 08/07/2012 Encounters Date Type Department Care Team Description 03/28/2025 Orders Only [facility] [place] [address] [facility], [address] [address] Lyly Horton MD 03/28/2025 Abstract [facility] [place] [address] [facility], [address] [address] Lyly Horton MD 03/13/2025 Orders Only [facility] Clinical Support [address] [facility] [address] [place] [address] Lyly Cruz RN Pelvic mass 03/12/2025 External Device Data ST[facility] ABSTRACTION Provider, Abstract 03/12/2025 Telephone [facility] [address] [facility] [address] [place] [address] Indy Mehta RN Follow Up 03/05/2025 Telephone [facility] [address] [facility] [address] [place] [address] Bianka Zepeda RN Ultrasound 03/04/2025 Telephone [facility] [address] [facility] [address] [place] [address] Rosaura Lopez, DAISY Follow Up; Results 02/26/2025 Results Follow-Up [facility] COMMODITIES CLERK - Medical [facility] [address] [facility] [address] [address] Lyly Horton MD VAGINOSIS/VAGINITIS PANEL BASIC 02/22/2025 10:45 AM CDT Office Visit [facility] COMMODITIES CLERK - Medical [facility] [address] [facility] [address] [address] Lyly Horton MD Pelvic mass (Primary Dx); Vulvar itching 02/22/2025 [facility] Clinical Support [address] [place] [address] Shikha John, RN Question 02/21/2025 [facility] Clinical Support [address] [place] [address] Chantale Figueroa, DAISY Appointment Verification 02/18/2025 [facility] - [address] [place] [address] Ghazal Royal PA Appointment Notification 02/13/2025 External Device Data [facility] ABSTRACTION Provider, Abstract 02/12/2025 External Device Data [facility] ABSTRACTION Provider, Abstract 02/12/2025 External Device Data [facility] ABSTRACTION Provider, Abstract 02/07/2025 [facility] - [address] [place] [address] Ghazal Royal PA Appointment Notification 01/29/2025 External Device Data [facility] ABSTRACTION Provider, Abstract 01/09/2025 External Device Data [facility] ABSTRACTION Provider, Abstract 01/08/2025 External Device Data [facility] ABSTRACTION Provider, [...] on file Legal Sex Female 10:54 AM COMMUNITY REPRESENTATIVE Gender Identity Not on file Sexual Orientation Not on file Occupation Industry Job Start Date Job End Date Not on file Not on file Not on file Not on file Last Filed Vital Signs Vital Sign Reading Time Taken Comments Blood Pressure 143/84 02/22/2025 11:02 AM CDT Pulse 83 02/22/2025 11:02 AM CDT Temperature 36 C (96.8 F) 02/22/2025 11:02 AM CDT Respiratory Rate - - Oxygen Saturation 97% 02/22/2025 11:02 AM CDT Inhaled Oxygen Concentration - - Weight 86.6 kg (191 lb) 02/22/2025 11:02 AM CDT Height 177.8 cm (5' 10) 02/22/2025 11:02 AM CDT Body Mass Index 27.41 02/22/2025 11:02 AM CDT Plan of Treatment Upcoming Encounters Date Type Department Care Team (Late st Contact Info) Description 06/28/2025 9:40 AM COMMUNITY REPRESENTATIVE Appointment [facility] [address] [place] [address] [place] [address] [address] [place] [address] 10/08/2025 11:15 AM CDT Office Visit [facility] - [address] [place] [address] [place] [address] [place] [address] Health Maintenance Due Date Last Done Comments Pre-Diabetes and Diabetes Screening 1955 DTAP/TDAP/TD VACCINES (1 - Tdap) 1974 FIT-DNA Q 3 years 02/29/2000 FIT/FOBT Q 1 year 02/29/2000 Flex Sig/CT Colonography Q 5 years 02/29/2000 ZOSTER VACCINE (1 of 2) 2005 INFLUENZA VACCINE (#1) 2025 4, 04/04/2023, 09/22/2021 BREAST CANCER SCREENING 01/10/2026 01/11/20 25, 06/28/2024, 06/23/2023, Additional history exists OSTEOPOROSIS SCREENING 10/17/2028 4, 10/18/2023, 08/27/2021 RSV VACCINE (60+ or ) (1 - 1-dose 75+ series) 2030 COLORECTAL SCREENING 11/14/2033 11/15/2023, 08/24/2019, 07/07/2016, Additional history exists Colorectal Cancer Screening 11/14/2033 PNEUMOCOCCAL VACCINE 50+ YEARS Completed 04/04/2023 Procedures Procedure Name Priority Date/Time Associated Diagnosis Comments US PELVIS COMPLETE Routine 03/04/2025 10 :43 AM CDT US PELVIS + TRANSVAG NON OB Routine 03/04/2025 Pelvic mass VAGINOSIS/VAGINITI S PANEL BASIC Routine 02/22/2025 3:20 PM CDT Vulvar itching MAMMO 3D DINA SCREEN BILAT W OR WO CAD Routine 06/28/2024 9:47 AM COMMUNITY REPRESENTATIVE Breast pain, left Breast fibroadenoma, left Screening mammogram for breast cancer Dense breast tissue on mammogram, unspecified type XR DEXA BONE DENSITY AXIAL 1 OR MORE SITES Routine 08/27/2021 12:38 PM COMMUNITY REPRESENTATIVE Post-menopausal Screening for osteoporosis from Last 3 Months or Most Recently Relevant to Health Maintenance Results * US PELVIS COMPLETE (03/04/2025 10:43 AM CDT) Anatomical Region Laterality Modality Pelvis Ultrasound Lyly Horton MD US ORDERABLES Final R esult * US PELVIS + TRANSVAG NON OB (03/04/2025) Anatomical Region Laterality Modality Pelvis Ultrasound Lyly Horton MD US ORDERABLES Edited Result - Final * VAGINOSIS/VAGINITIS PANEL BASIC (02/22/2025 3:20 PM CDT) BACTERIAL VAGINOSIS NEGATIVE NEGATIVE [facility] LACEY SPECIES NOT DETECTED NOT DETECTED [facility] LACEY GLABRATA NOT DETECTED NOT DETECTED [facility] Comment: Lacey species C. albicans, C. tropicalis, C. parapsilosis, and/or C. dubliniensis can be detected, but not differentiated, in the Lacey spp. result. TRICHOMONAS VAGINALIS (TV), TMA NOT DETECTED NOT DETECTED [facility] [place] Comment: Test Performed at: [facility] [address] [place] [address] Zuleyma Cavanaugh MD Genital SPECIMEN FROM VAGINA / Unknown 02/22/2025 3:20 PM CDT 02/23/2025 3:28 AM CDT us Lyly Horton MD MICROBIOLOGY - GENERAL ORDERABLES Final Result [facility] [phone] [facility] [address] [place] [address] * MAMMO 3D DINA SCREEN BILAT W OR WO CAD (06/28/2024 9:47 AM COMMUNITY REPRESENTATIVE) Anatomical Region Laterality Modality Breast Bilateral Mammography 06/28/2024 9:47 AM COMMUNITY REPRESENTATIVE Impressions 06/28/2024 6:46 PM COMMUNITY REPRESENTATIVE IMPRESSION: No mammographic evidence of malignancy. RECOMMENDATIONS: Routine screening mammogram in one year. DICTATION LOCATION: [facility] Narrative 06/28/2024 6:46 PM COMMUNITY REPRESENTATIVE MAMMO 3D DINA SCREEN BILAT W OR [...] screening mammogram in one year. DICTATION LOCATION: [facility] Ghazal [place] MAMMO ORDERABLES Final Result * XR DEXA BONE DENSITY AXIAL 1 OR MORE SITES (08/27/2021 12:38 PM COMMUNITY REPRESENTATIVE) Anatomical Region Laterality Modality Digital Radiogra phy 08/27/2021 12:3 9 PM COMMUNITY REPRESENTATIVE Impressions 08/27/2021 12:57 PM COMMUNITY REPRESENTATIVE IMPRESSION: This is a summary page. Please refer to the complete detailed report found in the Imaging Section of the [facility] EMR, including absolute bone mineral density values. [...] years thereafter [facility] 08/27/2021 12:57 PM COMMUNITY REPRESENTATIVE EXAMINATION: BONE DENSITY STUDY (DXA) DATE: 08/27/2021 12:38 PM HISTORY: See Diagnosis Post-menopausal; Screening for osteoporosis PROCEDURE: Planar images of the lumbar spine and hip(s) using a ONtheAIR DEXA scanner for bone mineral density determination (BMD). FINDINGS: Lumbar Spine (L1-L4): T-Score: -1.7 Left Femoral Neck: T-Score: -1.3 Right Femoral Neck: T-Score: -1.2 Procedure Note Vance Wasserman MD - 08/27/2021 EXAMINATION: BONE DENSITY STUDY (DXA) DATE: 08/27/2021 12:38 PM HISTORY: See Diagnosis Post-menopausal; Screening for osteoporosis PROCEDURE: Planar images of the lumbar spine and hip(s) using a ONtheAIR DEXA scanner for bone mineral density determination (BMD). FINDINGS: Lumbar Spine (L1-L4): T-Score: -1.7 Left Femoral Neck: T-Score: -1.3 Right Femoral Neck: T-Score: -1.2 IMPRESSION: This is a summary page. Please refer to the complete detailed report found in the Imaging Section of the [facility] EMR, including absolute bone mineral density values. [...] years thereafter DICTATION LOCATION: Location 1 - [facility] Lyly Horton MD DIAGNOSTIC IMAGING ZEUSChristian DARIN Final Result from Last 3 Months or Most Recently Relevant to Health Maintenance Insurance AENA O MCR Care Teams Social Security Benefits Interviewer Relationship Specialty Start Date End Date Serena Salazar MD [address] [place] [address] PCP - General Family Practice 08/07/12
--- OUTSIDE RECORDS SUMMARY | 2025-04-01 13:13 | XMS_ITS | Encounter Summary ---
Author Organization [facility] Address [address] [place] [address] Care Team Providers Care Concrete Vault Maker Name Role Phone Serena Salazar MD Primary Care Provider [phone] Encounter Details Date Type Department Care Team (Late st Contact Info) Description 03/28/2025 Orders Only [facility] O[facility]YN - [place] [address] [facility] [address] [place] [address] Lyly Horton MD [address] [facility] [address] [place] [address] Social History Tobacco Use Types Packs/Day Years Used Date Smoking Tobacco: Never Smokeless Tobacco: Never Alcohol Use Standard Drinks/Week Comments Yes 0 (1 standard drink = 0.6 oz pur e alcohol) occ Comments No Sex and Gender Information Value Date Recorded Sex Assigned at Not on file Legal Sex Female 10:54 AM MURAL ARTIST Gender Identity Not on file Sexual Orientation Not on file Occupation Industry Job Start Date Job End Date Not on file Not on file Not on file Not on file documented as of this encounter Plan of Treatment Upcoming Encounters Date Type Department Care Team (Late st Contact Info) Description 06/28/2025 9:40 AM MURAL ARTIST Appointment [facility] Breast Center [facility] [address] [place] [address] [place] [address] [address] [place] [address] 10/08/2025 11:15 AM CDT Office Visit [facility] Breast Surgery [facility] - [address] [place] [address] [place] [address] [address] [place] [address] documented as of this encounter Procedures Procedure Name Priority Date/Time Associated Diagnosis Comments US PELVIS COMPLETE Routine 03/04/2025 10:43 AM CDT documented in this encounter Results * US PELVIS COMPLETE (03/04/2025 10:43 AM CDT) Anatomical Region Laterality Modality Pelvis Ultrasound us Lyly Horton MD US ORDERABLES Final R esult documented in this encounter Visit Diagnoses Not on filedocumented in this encounter Care Teams Concrete Vault Maker Relationship Specialty Start Date End Date Serena Salazar MD [address] [place] [address] PCP - General Family Practice 08/07/12 documented as of this encounter
--- OUTSIDE RECORDS SUMMARY | 2025-04-01 13:13 | XMS_ITS | Patient Health Record ---
Author Organization [facility] Address [address] [place] [address] Care Team Providers Care Toll Repairer Central Office Name Role Phone Olu Braga Unavailable [phone] Reason For Referral No Information Medications Medication SIG (Take, Route, Frequency, Duration) Notes Start Date End Date Status FLUoxetine HCl 20 MG Capsule Oral 05/26/2022 Active ALPRAZolam 0.5 MG Tablet Oral 05/26/2022 Active Fluconazole 150 MG Tablet Oral 05/26/2022 Active Pantoprazole Sodium 20 MG Tablet Delayed Release Oral 05/26/2022 Activ e Ergocalciferol 1.25 MG (72423 UT) Capsule Oral 05/26/2022 Active ProAir HFA 108 (90 Base) MCG/ACT Aerosol Solution Inhalation 05/26/2022 Act alexys Losartan Potassium 50 MG Tablet Oral 05/26/2022 Active Tretinoin 0.025 % Cream External 05/26/2022 Active Desipramine HCl 10 mg Tablet Oral 05/26/2022 Active hydroCHLOROthiazide 12.5 MG Tablet Oral 05/26/2022 Active traMADol HCl 50 MG Tablet Oral 05/26/2022 Active Trintellix 10 MG Tablet Oral 05/26/2022 Active Trintellix 5 MG Tablet Oral 05/26/2022 Active Pantoprazole Sodium 40 MG Tablet Delayed Release Oral 05/26/2022 Activ e Estradiol 0.01 % (0.1 mg/gram) Cream Vaginal *Pick strength-form from [employer] for eRX* 05/26/2022 Active Atorvastatin Calcium 10 MG Tablet Oral 05/26/2022 Active Cyclobenzaprine HCl 10 MG Tablet Oral 05/26/2022 Active Social History Social History Additional Details Category Social Info Options Details Migrated Social History Migrated Social History Tobacco Years: Never smoker 04/16/2022 Plan Of Treatment No Information Insurance Providers Payer Name Payer Address Payer Phone Subscriber Number Group Number Insured Name Patient Relationship to Insured Coverage Start Date Coverage End Date Medicare-I l Medicare [address] [place] [address] [id number] CODY RONQUILLO Self - patient is the insured [employer] [address] [place] [address] [id number] CODY RONQUILLO Self - patient is the insured Medical (General) History Surgical History Surgery Date(Month/Year) Hysterectomy/revise vagina (24183)
[2025-04-01 14:39] LABS: Hematocrit 42.8 % (37.0-47.0); Hemoglobin 14.0 g/dL (12.0-15.0); Immature Granulocyte Percent A 0.5 % (0-0.5); Lymphocytes Absolute Auto 1.95 K/mm3 (0.9-3.2); Mean Corpuscular HGB Conc 32.7 g/dl (32-36); Mean Corpuscular Hemoglobin 29.5 pg (26-34); Mean Corpuscular Volume 90.1 fl (80-100); Nucleated Red Blood Cells Absolute Auto 0.000 K/mm3 (0.0-0.012); Nucleated Red Blood Cells Perc 0.0 % (0.0-0.2); Platelet Count Result 279 k/mm3 (150-375); Red Blood Count 4.75 M/mm3 (4.2-5.4); White Blood Count 6.2 K/mm3 (4.5-10.0)
[2025-04-01 14:44] LABS: Estimated CRCL calculation 62 ml/min; Estimated Glomerular Filt Rate > 60
[2025-04-01 14:59] LABS: Alanine Aminotransferase 61 U/L (6-35); Albumin Level 4.4 g/dL (3.5-5.1); Alkaline Phosphatase 112 U/L (38-126); Anion Gap 7 mmol/L (4-12); Aspartate Amino Transferase 60 U/L (14-36); Bilirubin,Total 0.7 mg/dL (0.2-1.3); Blood Urea Nitrogen 14 mg/dL (7-17); Calcium 9.5 mg/dL (8.4-10.2); Carbon Dioxide 33 mmol/L (22-30); Chloride 96 mmol/L (98-107); Estimated CRCL calculation 67 ml/min; Estimated Glomerular Filt Rate > 60; Glucose 97 mg/dL (65-110); Lipase 54 U/L (23-300); Potassium 4.4 mmol/L (3.4-5.0); Sodium 136 mmol/L (137-145); Total Protein 8.1 g/dL (6.3-8.2)
[2025-04-01 15:31] LABS: INR 0.9; Partial Thromboplastin Time 32.5 Seconds (22.3-36.8); Prothrombin Time 12.1 Seconds (11.1-14.7)
--- OUTSIDE RECORDS SUMMARY | 2025-04-01 15:45 | XMS_ITS ---
Author Organization [facility] Address [address] [place] [address] Care Team Providers Care Head Wrestling Coach Name Role Phone Helder Haas MD Primary Care Provider [phone] Rina Schmitz MD Unavailable [phone] Artemio Prince MD Unavailable [phone] Lyly Horton MD Unavailable Olu Braga NP Unavailable Active Problems Problem [...] not intractable 03/27/2022 [facility] Umbilical hernia without obstruction and without gangrene 10/30/2021 Hypercholesterolemia 09/23/2021 Assessment & Plan (10/23/2021 12:43 PM CDT): Continuing statin therapy Hypertension, essential 09/23/2021 Assessment & Plan (05/30/2024 11:48 AM PARTS COUNTERPERSON): BP 124/80, stable. Hydrochlorothiazide cut down to [...] (01/27/2018): Added automatically from request for surgery [id number] Basal cell carcinoma (BCC) of skin of [...] cervical cancer 12/23/2008 Overview (02/27/2021): Overview: 01/25/08 [facility] Current Treatment and Therapy Plans No current plan information found. Past Treatment and Therapy Plans No past plan information found. Lifetime Dose Tracking * Chemical Lifetime Dose Automatic Entry Manual Entr y Fluoro Time 0.2 minutes 0.2 minutes 0 minutes Air kerma at the reference point (Ka,r) 1.436 mGy 1 .436 mGy 0 mGy
--- OUTSIDE RECORDS SUMMARY | 2025-04-01 15:45 | XMS_ITS | Clinical Summary ---
Author Organization [facility] Address [address] [facility] [place] [address] Care Team Providers Care Assistant Dean Of Students Name Role Phone Luis Fernando Rosales MD Unavailable Source Comments [facility],non-owned Affiliates and Associated Physician Practices is amultiple site organization consisting of ambulatory clinics and hospital sitesin [place], [place], [place] and [place]. This disclosure is being madepursuant to the Care Everywhere program and may not contain all information available regarding this patient. Last updated 18.[facility] Relevvant Allergies Active Allergy Reactions Criticality Noted Date [...] on file Legal Sex Female 5:56 AM STAFF ANALYST Gender Identity Not on file Sexual Orientation Not on file Last Filed Vital Signs Vital Sign Reading Time Taken Comments Blood Pressure 150/97 07/05/2011 3:08 PM STAFF ANALYST Pulse 69 07/05/2011 3:08 PM STAFF ANALYST Temperature - - Respiratory Rate - - Oxygen Saturation - - Inhaled Oxygen Concentration - - Weight 78 kg (172 lb) 07/05/2011 3:08 PM STAFF ANALYST Height 177.8 cm (5' 10) 07/05/2011 3:08 PM STAFF ANALYST Body Mass Index 24.68 07/05/2011 3:08 PM STAFF ANALYST Plan of Treatment Health Maintenance Due Date [...] MAMMO BILAT SCREENING Routine 07/05/2011 2:37 PM STAFF ANALYST Other screening mammogram from Last 3 Months or Most Recently Relevant to Health Maintenance Results * MAMMO SCREENING DIGITAL IMAGE BILAT [id number] (07/05/2011 2:37 PM STAFF ANALYST) Anatomical Region Laterality Modality Breast Bilateral Mammography 07/05/2011 3:30 PM STAFF ANALYST Narrative 07/05/2011 3:41 PM STAFF ANALYST DIGITAL BILATERAL SCREENING MAMMOGRAMS WITH CAD CORRELATION [...] if suspicious findings are present clinically. [facility] [employer] [facility] Procedure Note [...] if suspicious findings are present clinically. [facility] [employer] [facility] Luis Fernando Rosales MD MAMMO ORDERABLES Final Result from Last 3 Months or Most Recently Relevant to Health Maintenance Insurance MEDICARE [facility] * Guarantor: HELIO RONQUILLO Account Type Relation to Patient Date of Phone Billing Address Personal/Family [id number] [address] MEDICARE [facility] * Guarantor: KATINA RONQUILLO Account Type Relation to Patient Date of Phone Billing Address Personal/Family [id number] [address] Care Teams Assistant Dean Of Students Relationship Specialty Start Date End Date Luis Fernando Rosales MD [address] [place] [address] PCP - OBGYN 12/23/08
--- OUTSIDE RECORDS SUMMARY | 2025-04-01 15:45 | XMS_ITS | Clinical Summary ---
Author Organization [facility] Address [address] [place] [address] Care Team Providers Care Acetylene Operator Name Role Phone Helder Haas MD Primary Care Provider Rina Schmitz MD Unavailable [phone] Artemio Prince MD Unavailable [phone] Lyly Horton MD Unavailable Olu Braga NP Unavailable Allergies Active Allergy [...] status migrainosus, not intractable 03/27/2022 [facility] Umbilical hernia without obstruction and without gangrene 10/30/2021 Hypercholesterolemia 09/23/2021 Assessment & Plan (10/23/2021 12:43 PM CDT): Continuing statin therapy Hypertension, essential 09/23/2021 Assessment & Plan (05/30/2024 11:48 AM OVEREDGE SEWER): BP 124/80, stable. Hydrochlorothiazide cut down to [...] (01/27/2018): Added automatically from request for surgery [id number] Basal cell carcinoma (BCC) of skin of [...] Department Care Team Description 04/01/2025 Nurse Triage [facility] Medical [facility] Primary Care at [address] [address] Helder Haas MD 03/27/2025 Telephone [facility] Primary Care at [address] [address] Helder Haas MD Referral Request 03/25/2025 Telephone [facility] Primary Care at [address] [address] Helder Haas MD Recommendation Request 03/13/2025 Telephone [facility] Primary Care at [address] [address] Helder Haas MD Med Refill 01/14/2025 ACO Clinical Pharmacist [facility] Primary Care at [address] [address] Noelle Magdaleno, SAMI Hypertension, essential [...] place to sleep or slept in a snf (including now)? No 09/22/2021 Education Answer Date Recorded What is the highest level of school you have completed or the highest degree you have received? High school graduate 09/22/2021 Comments No Sex and Gender Information Value Date Recorded Sex Assigned at Not on file Legal Sex Female 6:57 PM OVEREDGE SEWER Gender Identity Not on file Sexual Orientation [...] with given history of: screen osteoporosis Postmenopausal. Platen Press Feeder/Model: AmpIdea SL (S/N [id number]) CLINICAL INFORMATION: Current height: 70 inches Maximum [...] Vance Bui M.D. MF: AROLDO Report ID: [id number] Reading Location: [address] Note Vance Bui MD - 10/18/2023 EXAM DESCRIPTION: DEXA AXIAL SKELETON BONE DENSITY 1 OR MORE SITES REASON FOR STUDY: 68 y/o year old F with given history of: screen osteoporosis Postmenopausal. Platen Press Feeder/Model: UTILICASE Discovery SL (S/N [id number]) CLINICAL INFORMATION: Current height: 70 inches Maximum [...] Vance Bui M.D. MF: AROLDO Report ID: [id number] Reading Location: [place] [address] [place] Helder Haas MD IMG DXA PROCEDURES Final Re sult * Hepatitis C antibody (10/21/2021 1:55 PM CDT) Pathologist [facility] Hep C Ab Nonreactive Nonreactive [facility] Comment: Interpretive Data Nonreactive: Antibodies to HCV [...] Final Result Performing Organization Address City/State/ZIP Co nm Phone Number ROSANNA YIN [address] [place] [address] from Last 3 Months or Most Recently Relevant to Health Maintenance Insurance [facility] MEDICARE [facility] MEDICARE [facility] Advance Directives For more information, please contact: [phone] * Full Code (Latest Code Status on File) Date Activated Date Inactivated Comments 01/27/2018 1:59 PM 01/27/2018 4:00 PM Care Teams Acetylene Operator Relationship Specialty Start Date End Date Helder Haas MD [address] [place] [address] PCP - General Family Medicine 09/22/21 Rina Schmitz MD [address] [place] [address] Consulting Physician Dermatology 09/22/21 Artemio Prince MD [address] [place] [address] Referring Physician Gastroenterology 09/22/21 Lyly Horton MD [id number] [place] [address] Obstetrics and Gynecology 09/22/21 Olu Braga NP [address] [place] [address] Nurse Practitioner 05/18/22 Akiko Chester Psychologist 09/22/21
--- OUTSIDE RECORDS SUMMARY | 2025-04-01 15:45 | XMS_ITS | Encounter Summary ---
Author Organization [facility] Address [address] [place] [address] Care Team Providers Care Metal Work Duct Installer Name Role Phone Serena Salazar MD Primary Care Provider [phone] Encounter Details Date Type Department Care Team (Late st Contact Info) Description 03/28/2025 Orders Only [facility] OBGYN - [place] [address] [facility], [facility] [address] [place] [address] Lyly Horton MD [address] [facility] [address] [place] [address] Social History Tobacco Use Types Packs/Day Years Used Date Smoking Tobacco: Never Smokeless Tobacco: Never Alcohol Use Standard Drinks/Week Comments Yes 0 (1 standard drink = 0.6 oz pur e alcohol) occ Comments No Sex and Gender Information Value Date Recorded Sex Assigned at Not on file Legal Sex Female 10:54 AM VP SCIENTIFIC AFFAIRS Gender Identity Not on file Sexual Orientation Not on file Occupation Industry Job Start Date Job End Date Not on file Not on file Not on file Not on file documented as of this encounter Plan of Treatment Upcoming Encounters Date Type Department Care Team (Late st Contact Info) Description 06/28/2025 9:40 AM VP SCI[employer]IFIC AFFAIRS Appointment [facility] Breast Center [facility] at [facility] [address] [place] [address] [place] [address] [address] [place] [address] 10/08/2025 11:15 AM CDT Office Visit [facility] Breast Surgery [facility] [address] [place] [address] [place] [address] [address] [place] [address] documented as of this encounter [...] on filedocumented in this encounter Care Teams Metal Work Duct Installer Relationship Specialty Start Date End Date Serena Salazar MD [address] [place] [address] PCP - General Family Practice 08/07/12 documented as of this encounter
--- OUTSIDE RECORDS SUMMARY | 2025-04-01 15:45 | XMS_ITS | Encounter Summary ---
Author Organization [facility] Address [address] [facility] [place] [address] Care Team Providers Care Cellular Tower Climber Name Role Phone Luis Fernando Rosales MD Unavailable Encounter Details Date Type Department Care Team (Late st Contact Info) Description 05/20/2021 Lab Requisition [facility] Care DermPath Lab [address] [facility], [place] [address] Gregg Antonio Jr., MD [address] [facility] [address] [place] [address] Social History Tobacco Use Types Packs/Day Years Used Date Smoking Tobacco: Never Alcohol Use Standard Drinks/Week Comments No 0 (1 standard drink = 0.6 oz pur e alcohol) Comments No Sex and Gender Information Value Date Recorded Sex Assigned at Not on file Legal Sex Female 5:56 AM MACHINE FORMER Gender Identity Not on file Sexual Orientation Not on file documented as of this encounter Plan of Treatment Not on file documented as of this encounter Procedures Procedure Name Priority Date/Time Associated Diagnosis Comments DERMATOPATHOLOGY Routine 05/20/2021 12:0 0 AM MACHINE FORMER documented in this encounter Results * DERMATOPATHOLOGY (05/20/2021 12:00 AM MACHINE FORMER) Case Report Dermatopathology Report Case: [id number] Authorizing Provider: Gregg Antonio Jr., MD Collected: 05/20/2021 12:00 AM Ordering Location: [facility] Care DermPath Lab Received: 05/20/2021 12:02 PM Pathologist: Aster Ferguson MD Specimen: Skin, right lower cutaneous lip 12:[address] [facility] DERMATOPATHOLOGY LABORATORY Final Diagnosis Specimen A. SKIN, right lower cutaneous lip: BASAL CELL CARCINOMA, NODULAR TYPE (C44.319) 12:[address] [facility] DERMATOPATHOLOGY LABORATORY at [address] MACHINE FORMER Clinical History Basal cell carcinoma vs sebaceous hyperplasia vs dermal nevus. . 12:[address] [facility] DERMATOPATHOLOGY LABORATORY Gross Description Specimen A: Received is one formalin filled container labeled with the patient's name and designated right lower cutaneous lip. The specimen consists of a shave biopsy measuring [id number]. Jar 0. 12:[address] [facility] DERMATOPATHOLOGY LABORATORY Microscopic Description Specimen A. SKIN, right lower cutaneous lip: Within the dermis there are aggregates of basaloid cells with a high nuclear to cytoplasmic ratio and peripheral palisading. 12:[address] [facility] DERMATOPATHOLOGY LABORATORY Disclaimer An external and internal positive and negative controls are appropriate for the histochemical, immunohistochemical and immunofluorescence stain(s) in this case (if any), except where stated explicitly. The performance characteristics of the stain(s) cited in this report were developed and its performance characteristic determined by the Dermatopathology Laboratory at [facility], directed by Dr. Lisa Cruz. These tests need not be, and therefore are not, approved by the [place] Food and Drug Administration. The tests are used for clinical purposes. Billing Codes Specimen Charges Stain Charges 77227 1 12:[address] [facility] DERMATOPATHOLOGY LABORATORY Embedded Images 12:[address] [facility] DERMATOPATHOLOGY LABORATORY Pathology/Cytolog y TISSUE SPECIMEN FROM SKIN / Unknown 05/20/2021 05/20/2021 12:[address] [facility] Gregg Antonio Jr., MD LAB - PATHOLOGY/CYTOLOG Y ORDERABLES Final Result DERMATOPATHOLOGY LABORATORY [facility] - Department of Dermatology [address], [address] [phone] documented in this encounter Visit Diagnoses Not on filedocumented in this encounter Care Teams Cellular Tower Climber Relationship Specialty Start Date End Date Luis Fernando Rosales MD [address] [place] [address] PCP Danitza MOTT 12/23/08 documented as of this encounter
--- OUTSIDE RECORDS SUMMARY | 2025-04-01 15:45 | XMS_ITS | Encounter Summary ---
Author Organization [facility] Address [address] [place] [address] Care Team Providers Care Rock Worker Name Role Phone Helder Haas MD Primary Care Provider [phone] Rina Schmitz MD Unavailable [phone] Artemio Prince MD Unavailable [phone] Lyly Horton MD Unavailable [phone] Olu Braga NP Unavailable [phone] Reason for Visit * Reason Onset Date Comments Rectal Bleeding 04/01/2025 Encounter Details Date Type Department Care Team (Late st Contact Info) Description 04/01/2025 Nurse Triage [facility] Primary Care at [address] [address] Helder Haas MD [address] [place] [address] [address] [place] [address] Social History Tobacco Use Types [...] place to sleep or slept in a long term (including now)? No 09/22/2021 Education Answer Date Recorded What is the highest level of school you have completed or the highest degree you have received? 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 Pt [...] iron pills or Pepto-Bismol.) Protocols Used Rectal [id number] * Telephone Encounter - Rosemarie Izaguirre RN [...] ambulance? No Additional Comments: Patient went to [facility] about a month ago, they felt a [...] on filedocumented in this encounter Care Teams Rock Worker Relationship Specialty Start Date End Date Helder Haas MD [address] [place] [address] PCP - General Family Medicine 09/22/21 Rina Schmitz MD [facility] [place] [address] Consulting Physician Dermatology 09/22/21 Artemio Prince MD [address] [place] [address] Referring Physician Gastroenterology 09/22/21 Lyly Horton MD [address] [facility] [address] [place] [address] Obstetrics and Gynecology 09/22/21 Olu Braga NP [address] [place] [address] Nurse Practitioner 05/18/22 Akiko Chester Psychologist 09/22/21 documented as of this encounter
--- OUTSIDE RECORDS SUMMARY | 2025-04-01 15:45 | XMS_ITS | Clinical Summary ---
Author Organization [facility] Address [address] [place] [address] Care Team Providers Care It Infrastructure Manager Name Role Phone Serena Salazar MD Primary Care Provider [phone] Allergies Active Allergy Reactions Criticality Noted Date [...] Referring Provider: Lyly Horton MD [address] [facility] [address] [place] [address] Other: Dr Kim Da Silva MD Problem Noted Date Diagnosed Date Breast fibroadenoma, left 12/15/2022 Lichen sclerosus et atrophicus of the vulva 07/29 Postmenopausal atrophic vaginitis 08/07/2012 Dyspareunia 08/07/2012 S/P total hysterectomy and B SO (bilateral salpingo-oophorectomy) 08/07/2012 Encounters Date Type Department Care Team Description 03/28/2025 Orders Only [facility] OBGYN - [place] [address] [facility], [address] [address] Lyly Horton MD 03/28/2025 Abstract [facility] - [place] [address] [facility], [address] [address] Lyly Horton MD 03/13/2025 Orders Only [facility] Clinical Support [address] [facility] [address] [place] [address] Lyly Cruz RN Pelvic mass 03/12/2025 External Device Data STL ABSTRACTION Provider, Abstract 03/12/2025 Telephone [facility] Clinical Support [address] [facility] [address] [place] [address] Indy Mehta RN Follow Up 03/05/2025 Telephone [facility] Clinical Support [address] [facility] [address] [place] [address] Bianka Zepeda RN Ultrasound 03/04/2025 Telephone [facility] Clinical Support [address] [facility] [address] [place] [address] Rosaura Lopez, DAISY Follow Up; Results 02/26/2025 Results [facility] PULMONARY NURSE PRACTITIONER - Medical [facility] [address] [facility] [address] [address] Lyly Horton MD VAGINOSIS/VAGINITIS PANEL BASIC 02/22/2025 10:45 AM CDT [facility] PULMONARY NURSE PRACTITIONER - Medical [facility] [address] [facility] [address] [address] Lyly Horton MD Pelvic mass (Primary Dx); Vulvar itching 02/22/2025 [facility] Clinical Support [address] [place] [address] Shikha John, RN Question 02/21/2025 [facility] Clinical Support [address] [place] [address] Chantale Figueroa, DAISY Appointment Verification 02/18/2025 [facility] Breast Surgery [facility] [address] [place] [address] Ghazal Royal PA Appointment Notification 02/13/2025 External Device Data STL ABSTRACTION Provider, Abstract 02/12/2025 External Device Data STL ABSTRACTION Provider, Abstract 02/12/2025 External Device Data STL ABSTRACTION Provider, Abstract 02/07/2025 [facility] - [address] [place] [address] Ghazal Royal PA Appointment Notification 01/29/2025 External [...] on file Legal Sex Female 10:54 AM PARING MACHINE OPERATOR Gender Identity Not on file Sexual [...] st Contact Info) Description 06/28/2025 9:40 AM PARING MACHINE OPERATOR Appointment [facility] [address] [place] [address] [place] [address] [address] [place] [address] 10/08/2025 11:15 AM CDT Office Visit [facility] Breast Surgery [facility] - [address] [place] [address] [place] [address] [address] [place] [address] Health Maintenance Due Date Last Done Comments [...] OR WO CAD Routine 06/28/2024 9:47 AM PARING MACHINE OPERATOR Breast pain, left Breast fibroadenoma, left Screening mammogram for breast cancer Dense breast tissue on mammogram, unspecified type XR DEXA BONE DENSITY AXIAL 1 OR MORE SITES Routine 08/27/2021 12:38 PM PARING MACHINE OPERATOR Post-menopausal Screening for osteoporosis from Last 3 [...] CDT) BACTERIAL VAGINOSIS NEGATIVE NEGATIVE [facility] LACEY SPECIES NOT DETECTED NOT DETECTED [facility] LACEY GLABRATA NOT DETECTED NOT DETECTED [facility] Comment: Lacey species C. albicans, C. tropicalis, C. parapsilosis, and/or C. dubliniensis can be detected, but not differentiated, in the Lacey spp. result. TRICHOMONAS VAGINALIS (TV), TMA NOT DETECTED NOT DETECTED [facility] Comment: Test Performed at: [facility] [address] [place] [address] Zuleyma Cavanaugh MD Genital SPECIMEN FROM VAGINA / Unknown 02/22/2025 3:20 PM CDT 02/23/2025 3:28 AM CDT us Lyly Horton MD MICROBIOLOGY - GENERAL ORDERABLES Final Result [facility] [phone] PST [facility] [address] [place] [address] * MAMMO 3D DINA SCREEN BILAT W OR WO CAD (06/28/2024 9:47 AM PARING MACHINE OPERATOR) Anatomical Region Laterality Modality Breast Bilateral Mammography 06/28/2024 9:47 AM PARING MACHINE OPERATOR Impressions 06/28/2024 6:46 PM PARING MACHINE OPERATOR IMPRESSION: No mammographic evidence of malignancy. RECOMMENDATIONS: Routine screening mammogram in one year. DICTATION LOCATION: [facility] Narrative 06/28/2024 6:46 PM PARING MACHINE OPERATOR MAMMO 3D DINA SCREEN BILAT W OR [...] screening mammogram in one year. DICTATION LOCATION: [facility] Ghazal [place] MAMMO ORDERABLES Final Result * XR DEXA BONE DENSITY AXIAL 1 OR MORE SITES (08/27/2021 12:38 PM PARING MACHINE OPERATOR) Anatomical Region Laterality Modality Digital Radiogra phy 08/27/2021 12:3 9 PM PARING MACHINE OPERATOR Impressions 08/27/2021 12:57 PM PARING MACHINE OPERATOR IMPRESSION: This is a summary page. Please refer to the complete detailed report found in the Imaging Section of the [facility] EMR, including absolute bone mineral density values. [...] years thereafter [facility] 08/27/2021 12:57 PM PARING MACHINE OPERATOR EXAMINATION: BONE DENSITY STUDY (DXA) DATE: 08/27/2021 12:38 PM HISTORY: See Diagnosis Post-menopausal; Screening for osteoporosis PROCEDURE: Planar images of the lumbar spine and hip(s) using a Actiwave DEXA scanner for bone mineral density determination (BMD). FINDINGS: Lumbar Spine (L1-L4): T-Score: -1.7 Left Femoral Neck: T-Score: -1.3 Right Femoral Neck: T-Score: -1.2 Procedure Note Vance Wasserman MD - 08/27/2021 EXAMINATION: BONE DENSITY STUDY (DXA) DATE: 08/27/2021 12:38 PM HISTORY: See Diagnosis Post-menopausal; Screening for osteoporosis PROCEDURE: Planar images of the lumbar spine and hip(s) using a Actiwave DEXA scanner for bone mineral density determination (BMD). FINDINGS: Lumbar Spine (L1-L4): T-Score: -1.7 Left Femoral Neck: T-Score: -1.3 Right Femoral Neck: T-Score: -1.2 IMPRESSION: This is a summary page. Please refer to the complete detailed report found in the Imaging Section of the [facility] EMR, including absolute bone mineral density values. [...] years thereafter DICTATION LOCATION: Location 1 - [facility] Lyly Horton MD DIAGNOSTIC IMAGING ZEUSChristian DARIN Final Result from Last 3 Months or Most Recently Relevant to Health Maintenance Insurance AENA O MCR Care Teams It Infrastructure Manager Relationship Specialty Start Date End Date Serena Salazar MD [address] [place] [address] PCP - General Family Practice 08/07/12
--- OUTSIDE RECORDS SUMMARY | 2025-04-01 15:45 | XMS_ITS | Encounter Summary ---
Author Organization [facility] Address [address] [place] [address] Care Team Providers Care Display Coordinator Name Role Phone Luis Fernando Rosales MD Unavailable Encounter Details Date Type Department Care Team (Late st Contact Info) Description 05/24/2023 Lab Requisition [facility] - DermPath Lab [address] [facility] [place] [id number] Gregg Antonio Jr., MD [address] [place] [address] Social History Tobacco Use Types Packs/Day Years Used Date Smoking Tobacco: Never Alcohol Use Standard Drinks/Week Comments No 0 (1 standard drink = 0.6 oz pur e alcohol) Comments No Sex and Gender Information Value Date Recorded Sex Assigned at Not on file Legal Sex Female 5:56 AM [employer] Gender Identity Not on file Sexual Orientation Not on file documented as of this encounter Plan of Treatment Not on file documented as of this encounter Procedures Procedure Name Priority Date/Time Associated Diagnosis Comments DERMATOPATHOLOGY Routine 05/23/2023 12:0 0 AM [employer] documented in this encounter Results * DERMATOPATHOLOGY (05/23/2023 12:00 AM [employer]) Case Report Dermatopathology Report Case: [id number] Authorizing Provider: Gregg Antonio Jr., MD Collected: 05/23/2023 12:00 AM Ordering Location: [facility] DermPath Lab Received: 05/24/2023 01:58 PM Pathologist: Bonnie Jade MD Specimen: Skin, left proximal pretibial region 3:59 PM [facility] DERMATOPATHOLOGY LABORATORY Final Diagnosis Specimen A. SKIN, left proximal pretibial region: BASAL CELL CARCINOMA, SUPERFICIAL MULTIFOCAL (C44.719) 3 3:59 PM [facility] DERMATOPATHOLOGY LABORATORY at [address] [employer] Clinical History Squamous Cell Carcinoma vs. Basal Cell Carcinoma 3 3:59 PM [facility] DERMATOPATHOLOGY LABORATORY Gross Description Specimen A: Received is one formalin filled container labeled with the patient's name and designated left proximal pretibial region. The specimen consists of a shave biopsy measuring 6x5x1 mm. Jar 0. 3 3:59 PM [facility] DERMATOPATHOLOGY LABORATORY Microscopic Description Specimen A. SKIN, left proximal pretibial region: Attached to the undersurface of the epidermis, there are small aggregates of basaloid cells with a high nuclear to cytoplasmic ratio and peripheral palisading. 3 3:59 PM [facility] DERMATOPATHOLOGY LABORATORY Disclaimer An external and internal positive and negative controls are appropriate for the histochemical, immunohistochemical and immunofluorescence stain(s) in this case (if any), except where stated explicitly. The performance characteristics of the stain(s) cited in this report were developed and its performance characteristic determined by the Dermatopathology Laboratory at [facility], directed by Dr. Lisa Cruz. These tests need not be, and therefore are not, approved by the [place] Food and Drug Administration. The tests are used for clinical purposes. Billing Codes Specimen Charges Stain Charges 79412 1 3 3:59 PM [facility] DERMATOPATHOLOGY LABORATORY Embedded Images 3 3:59 PM [facility] DERMATOPATHOLOGY LABORATORY Pathology/Cytolog y TISSUE SPECIMEN FROM SKIN / Unknown 05/23/2023 05/24/2023 1:58 PM [facility] us Gregg Antonio Jr., MD LAB - PATHOLOGY/CYTOLOG Y ORDERABLES Final Result DERMATOPATHOLOGY LABORATORY [facility] - Department of Dermatology [address], [address] [phone] documented in this encounter Visit Diagnoses Not on filedocumented in this encounter Care Teams Display Coordinator Relationship Specialty Start Date End Date Luis Fernando Rosales MD [address] [place] [address] [address] [place] [address] PCP - TIERA 12/23/08 documented as of this encounter
--- OUTSIDE RECORDS SUMMARY | 2025-04-01 15:45 | XMS_ITS | Encounter Summary ---
Author Organization [facility] Address [address] [place] [address] Care Team Providers Care Bench Press Operator Name Role Phone Luis Fernando Rosales MD Unavailable Encounter Details Date Type Department Care Team (Late st Contact Info) Description 04/21/2023 Lab Requisition [facility] - DermPath Lab [address] [facility] [place] [phone] Gregg Antonio Jr., MD [address] [place] [address] Social History Tobacco Use Types Packs/Day Years Used Date Smoking Tobacco: Never Alcohol Use Standard Drinks/Week Comments No 0 (1 standard drink = 0.6 oz pur e alcohol) Comments No Sex and Gender Information Value Date Recorded Sex Assigned at Not on file Legal Sex Female 5:56 AM [employer] Gender Identity Not on file Sexual Orientation Not on file documented as of this encounter Plan of Treatment Not on file documented as of this encounter Procedures Procedure Name Priority Date/Time Associated Diagnosis Comments DERMATOPATHOLOGY Routine 04/20/2023 12:0 0 AM CDT documented in this encounter Results * DERMATOPATHOLOGY (04/20/2023 12:00 AM CDT) Case Report Dermatopathology Report Case: [id number] Authorizing Provider: Gregg Antonio Jr., MD Collected: 04/20/2023 12:00 AM Ordering Location: [facility] DermPath Lab Received: 04/21/2023 12:59 PM Pathologist: [...] characteristic determined by the Dermatopathology Laboratory at [facility], directed by Dr. Lisa Cruz. These tests need not be, and therefore are not, approved by the [place] Food and Drug Administration. The tests are used for clinical purposes. Billing Codes Specimen Charges Stain Charges 14585 1 12:30 PM CDT DERMATOPATHOLOGY LABORATORY Embedded Images 12:30 PM CDT DERMATOPATHOLOGY LABORATORY Pathology/Cytolog y TISSUE SPECIMEN FROM SKIN / Unknown 04/20/2023 04/21/2023 12:59 PM CDT us Gregg Antonio Jr., MD LAB - PATHOLOGY/CYTOLOG Y ORDERABLES Final Result DERMATOPATHOLOGY LABORATORY [facility] - Department of Dermatology [address] [phone] documented in this encounter Visit Diagnoses Not on filedocumented in this encounter Care Teams Bench Press Operator Relationship Specialty Start Date End Date Luis Fernando Rosales MD [address] [place] [address] PCP - OBGYN 12/23/08 documented as of this encounter
--- NOTE | 2025-04-01 16:40 | ED.GENADULT ---
HPI - General Adult General Chief complaint: GI Bleed Stated complaint: Black stool-sent by Dr Horton Time Seen by Provider: 04/01/25 14:41 History of Present Illness HPI narrative: Patient is a 70-year-old female who presents ER with concerns for a possible colonic tear or mass. She reports that she had a pelvic exam by her laboratory machinist 6 weeks ago. During that exam they felt like she had a mass on her pubic bone. she underwent outpatient ultrasound which showed no pelvic mass. She was told it may be just stool. She was then told to come to the ER for further evaluation for possible tear. Patient has been having bowel movements but feels as though that there are harder to have. She has no fevers or chills or sweats. No diarrhea. No vomiting. She has not tried any stool softeners or laxatives. Related Data Home Medications ?Medication ?Instructions ?Recorded ?Confirmed ?Last Taken ?Type atorvastatin 10 mg tablet 10 mg PO HS 12/22/22 12/22/22 Unknown History desipramine 10 mg tablet See Rx Instructions PO DAILY PRN 12/22/22 12/22/22 Unknown History Abdominal Distention ergocalciferol (vitamin D2) 1,250 1,250 mcg PO WEEKLY 12/22/22 12/22/22 12/19/22 History mcg (50,000 unit) capsule fluoxetine 20 mg capsule 20 mg PO DAILY 12/22/22 12/22/22 Unknown History hydrochlorothiazide 12.5 mg tablet 12.5 mg PO HS 12/22/22 12/22/22 Unknown History losartan 50 mg tablet 50 mg PO BID 12/22/22 12/22/22 Unknown History pantoprazole 40 mg tablet,delayed 40 mg PO BID 12/22/22 12/22/22 Unknown History release Allergies Allergy/AdvReac Type Severity Reaction Status Date / Time Penicillins Allergy Severe Anaphylaxis Verified 04/01/25 16:53 Sulfa (Sulfonamide Allergy Unknown Unknown Verified 04/01/25 16:53 Antibiotics) Review of Systems Review of Systems: All systems reviewed & are unremarkable except as noted in HPI and below Constitutional: Constitutional: Reports no additional constitutional complaints ENT: Reports system reviewed and no additional complaints, except as documented Cardiovascular: Cardiovascular: Reports no additional cardiovascular complaints Respiratory: Respiratory: Reports no additional respiratory complaints Gastrointestinal: Gastrointestinal: Reports no additional gastrointestinal complaints [facility] Past Medical History Medical History (Updated 04/01/25 @ 17:05 by Allen Smith MD) Gastric ulcer, unspecified as acute or chronic, without hemorrhage or perforation H/O Helicobacter infection Mixed hyperlipidemia Migraine, unspecified, not intractable, without status migrainosus Mild intermittent asthma without complication Vitamin B12 deficiency Vitamin D deficiency Anxiety Fibromyalgia Essential hypertension Normal colonoscopy (~2019) Family History Family History Father Diabetes mellitus Family history of coronary artery disease Heart attack Sibling Diabetes mellitus Cerebrovascular accident Social History Social History (System 03/25/25 @ 10:34 by Patti Nunez) Smoking status: Never smoker Second hand tobacco smoke exposure: No Alcohol intake: never Substance use: never Substance use type: does not use Lack of Transportation: No Lack of Food: Never True Current Housing: I Have Housing Concerned About Future Housing: No Difficulty Paying Gas/Electric Bills: No Difficulty Paying for Meds: No Currently Unemployed: No Education: High School Diploma/GED Difficulty w/ Childcare or Family Care: No Gender identity (if verbalized by the patient): Female Spiritual care concerns: No Exam Narrative: GENERAL: Well-appearing, well-nourished, and in no acute distress. HEAD: Normocephalic, atraumatic. ENT: Mucous membranes moist. CHEST: Clear to auscultation. No respiratory distress. HEART: Regular rate and rhythm. Normal peripheral pulses. ABDOMEN: Soft, nontender, nondistended. EXTREMITIES: Normal range of motion. No edema. SKIN: Warm, dry, no rash. NEURO: Alert and oriented x3. PSYCH: Normal mood and affect. Course Course Emergency Course: Patient resting comfortably. Exam is benign. CBC normal. CMP with nonspecific elevation in transaminases. CT with no acute pathology. Do suspect that she has some mild constipation would recommend stool softeners to improved bowel regimen. I do not have concern for bowel perforation. If she continues to have issues she may follow-up with her PCP, they may also refer her to GI. Vital Signs Vital signs: Vital Signs Temperature 98.6 F 04/01/25 12:02 Respiratory Rate 17 04/01/25 12:02 Blood Pressure 156/95 H 04/01/25 12:02 Pulse Oximetry 96 04/01/25 12:02 Oxygen Delivery Room Air 04/01/25 12:02 Temperature 98.6 F 04/01/25 12:02 Pulse Rate 81 04/01/25 16:52 Respiratory Rate 18 04/01/25 16:52 Blood Pressure 157/102 H 04/01/25 16:52 Pulse Oximetry 98 04/01/25 16:52 Oxygen Delivery Room Air 04/01/25 16:50 Medical Decision Making Vital Signs Vital Signs: Vital Signs Temperature 98.6 F 04/01/25 12:02 Respiratory Rate 17 04/01/25 12:02 Blood Pressure 156/95 H 04/01/25 12:02 Pulse Oximetry 96 04/01/25 12:02 Oxygen Delivery Room Air 04/01/25 12:02 Temperature 98.6 F 04/01/25 12:02 Pulse Rate 81 04/01/25 16:52 Respiratory Rate 18 04/01/25 16:52 Blood Pressure 157/102 H 04/01/25 16:52 Pulse Oximetry 98 04/01/25 16:52 Oxygen Delivery Room Air 04/01/25 16:50 Lab Data 04/01/25 14:32 04/01/25 14:38 Labs: Lab Results 04/01/25 04/01/25 04/01/25 Range/Units 14:32 14:38 15:15 WBC 6.2 (4.5-10.0) K/mm3 RBC 4.75 (4.2-5.4) M/mm3 Hgb 14.0 (12.0-15.0) g/dL Hct 42.8 (37.0-47.0) % MCV 90.1 (80-100) fl MCH 29.5 (26-34) pg MCHC 32.7 (32-36) g/dl RDW 13.8 (11.5-14.5) % Plt Count 279 (150-375) k/mm3 MPV 9.1 (7.4-10.4) fl Immature Gran % (Auto) 0.5 (0-0.5) % Neut % (Auto) 59.7 (45.5-73.1) % Lymph % (Auto) 31.3 (18.3-44.2) % Riley % (Auto) 7.5 (2.6-8.5) % Eos % (Auto) 0.5 (0-4.4) % Baso % (Auto) 0.5 (0.2-1.2) % Lymph # (Auto) 1.95 (0.9-3.2) K/mm3 Riley # (Auto) 0.5 (0.1-0.6) K/mm3 Eos # (Auto) 0.0 (0-0.3) K/mm3 Baso # (Auto) 0.0 (0.0-0.1) K/mm3 Abs Immat Gran (auto) 0.03 (0.00-0.031) K/mm3 Absolute Neuts (auto) 3.7 (1.3-6.7) K/mm3 Absolute Nucleated RBC 0.000 (0.0-0.012) K/mm3 Nucleated RBC % 0.0 (0.0-0.2) % PT 12.1 (11.1-14.7) Seconds INR 0.9 APTT 32.5 (22.3-36.8) Seconds Sodium 136 L (137-145) mmol/L Potassium 4.4 (3.4-5.0) mmol/L Chloride 96 L (98-107) mmol/L Carbon Dioxide 33 H (22-30) mmol/L Anion Gap 7 (4-12) mmol/L BUN 14 (7-17) mg/dL Creatinine 0.73 0.80 (0.7-1.0) mg/dL Estim Creat Clear Calc 67 62 ml/min Estimated GFR > 60 > 60 (59 - ) Glucose 97 (65-110) mg/dL Calcium 9.5 (8.4-10.2) mg/dL Total Bilirubin 0.7 (0.2-1.3) mg/dL AST 60 H (14-36) U/L ALT 61 H (6-35) U/L Alkaline Phosphatase 112 (38-126) U/L Total Protein 8.1 (6.3-8.2) g/dL Albumin 4.4 (3.5-5.1) g/dL Lipase 54 (23-300) U/L Blood Type O Positive Antibody Screen Negative Imaging Data Radiologist's impression: ITS Impressions Abdomen/Pelvis CT 04/01/25 14:57 IMPRESSION: 1. No acute intra-abdominal/pelvic process. Discharge Plan Discharge Clinical Impression: Constipation Patient Disposition: Home Condition: Stable Instructions: Constipation (ED) Additional Instructions: Return to the emergency department if you develop severe abdominal pain, severe nausea and vomiting to the point where you are unable to keep down fluids, if you develop chest pain or difficulty breathing, blood in your stool, dizziness or fainting, or if you develop any other new or concerning symptoms as these could be signs of more serious medical illness. Try to stay well hydrated. Patient Language: Latvian Prescriptions: New docusate sodium [Colace] 100 mg capsule 100 mg PO BID Qty: 14 0RF No Action losartan 50 mg tablet 50 mg PO BID atorvastatin 10 mg tablet 10 mg PO HS pantoprazole 40 mg tablet,delayed release (DR/EC) 40 mg PO BID ergocalciferol (vitamin D2) 1,250 mcg (50,000 unit) capsule 1,250 mcg PO WEEKLY fluoxetine 20 mg capsule 20 mg PO DAILY desipramine 10 mg tablet See Rx Instructions PO DAILY PRN (Reason: Abdominal Distention) Rx Instructions: Take 2-3 tab PO daily; hydrochlorothiazide 12.5 mg tablet 12.5 mg PO HS alprazolam 0.5 mg tablet 0.5 mg PO BID PRN (Reason: anxiety) Qty: 60 0RF tramadol 50 mg tablet 50 mg PO Q6H PRN (Reason: pain) Qty: 60 0RF Follow-up/Referrals: Waldo,Helder López MD [Primary Care Provider, Unknown] - 1 Week
[2025-04-01 16:50] VITALS: BP 149/100; PULSE 83; RESP 20; O2SAT 97
[2025-04-01 16:52] VITALS: BP 157/102; PULSE 81; RESP 18; O2SAT 98
== END 2025-04-01 17:18 | disposition home or self-care (01) ==
PROVIDERS: Nurse Practitioner Family; Emergency Provider Emergency Medicine; PCP Family Medicine
DX: K59.00 Constipation, unspecified (principal); I10 Essential (primary) hypertension; J45.20 Mild intermittent asthma, uncomplicated; E78.2 Mixed hyperlipidemia; E53.8 Deficiency of other specified B group vitamins; E55.9 Vitamin D deficiency, unspecified; M79.7 Fibromyalgia; F41.9 Anxiety disorder, unspecified; Z79.899 Other long term (current) drug therapy
CPT/HCPCS: 36415; 74177; 80053; 83690; 85025; 85610; 85730; 86850; 86900; 86901; 99284; Q9967